=== PATIENT | female | born 1960 | race Caucasian/White ===

== ENCOUNTER 2017-02-05 17:48 | Inpatient (IN) | payer OTHER, MEDICAID ==
--- NOTE | 2017-02-05 18:00 | CPEKG ---
Heart Rate: 68 RR Interval: 882 P-R Interval: 188 QRSD Interval: 84 QT Interval: 376 QTC Interval: 400 P [place]: 54 QRS [place]: -1 T Wave [place]: 47 EKG Severity - BORDERLINE ECG - EKG Impression: SINUS RHYTHM EKG Impression: PROBABLE LEFT ATRIAL ABNORMALITY Electronically Signed By: Vero Guerra 05-Feb-2017 18:08:06
--- NOTE | 2017-02-05 18:16 | EDPHY ---
H & P Time Seen by Provider: 02/05/17 17:57 HPI/ROS: CHIEF COMPLAINT: Dyspnea on exertion HISTORY OF PRESENT ILLNESS: This patient is a diabetic 56-year-old female with antiphospholipid syndrome on Xarelto who presents to the Emergency Department complaining of dyspnea on exertion worsening over the past two weeks. She has had multiple prior clotting events even when taking anticoagulants. Today, she presents because she is unable to walk for more than a block due to shortness of breath with associated lightheadedness and heart palpitations. She denies chest pain or dyspnea at rest. She had one episode of vomiting today with mild diffuse abdominal pain. She complains of mild constipation; last BM three day ago. No blood in stool. She denies urinary complaints, fever or chills, or additional complaints. Medical history also includes depression, PTSD, and anxiety. REVIEW OF SYSTEMS: A 10 point review of systems was performed and is negative with the exception of the elements mentioned in the history of present illness. Source: Patient - Medical/Surgical History PMH: 1. Insulin-dependent diabetes 2. Left BKA 3. Antiphospholipid antibody syndrome 4. CAD 5. Farrah thyroiditis 6. Depression, anxiety, PTSD 7. Vitiligo Hx Asthma: No Hx Chronic Respiratory Disease: No Hx Diabetes: Yes Hx Cardiac Disease: No Hx Renal Disease: Yes Hx Cirrhosis: No Hx Alcoholism: No Hx HIV/AIDS: No Hx Splenectomy or Spleen Trauma: No Other PMH: Left BKA, clotting disorder, PVD, CAD, anxiety, deprtession, lymphocytic thyroiditis, type II diebetes, hypothyroidism, Farrah's, esphogeal reflux, sleep apnea, - Social History Smoking Status: Never smoked Additional Social History: Homeless - living in her car for the past month. - Physical Exam Exam: General Appearance: Alert, no acute distress. Eyes: Pupils equal and round, no conjunctival injection, no discharge. ENT, Mouth: Mucous membranes are moist, no oropharyngeal erythema or edema. Neck: No lymphadenopathy, supple. Respiratory: Lungs are clear to auscultation; no wheezes, rales, or rhonchi. Cardiovascular: Regular rate and rhythm; no murmur, rub, or gallop. Gastrointestinal: Abdomen is soft and non tender, no masses or organomegaly, bowel sounds normal. Skin: Warm and dry, no rashes, vitiligo. Back: Nontender to palpation over the thoracolumbar spine. Extremities: Left BKA with prosthetic in place. No lower extremity edema, no calf tenderness or swelling. Neurological: Alert and oriented. Moving all four extremities easily and equally. Psychiatric: Normal affect. Constitutional: Initial Vital Signs Temperature (C) 36.7 C 02/05/17 17:57 Heart Rate 75 02/05/17 17:57 Respiratory Rate 18 02/05/17 17:57 Blood Pressure 114/83 H 02/05/17 17:57 O2 Sat (%) 98 02/05/17 17:57 O2 Delivery Mode Room Air Allergies/Adverse Reactions: aspartame Allergy (Verified 02/05/17 18:07) morphine Allergy (Verified 02/05/17 18:07) Sulfa (Sulfonamide Antibiotics) Allergy (Verified 02/05/17 18:07) Home Medications: Medication Instructions Recorded Ferrous Sulfate [Slow Fe 140 MG 140 mg PO DAILY 12/30/13 (*)] Levothyroxine [Synthroid 200 mcg 200 mcg PO DAILY06 12/30/13 (*)] Lisinopril [Zestril 20 mg (*)] 20 mg PO DAILY 12/30/13 Oxycodone Ir [Oxy Ir 5 mg (RX)] 1 tab PO HS 12/30/13 Oxycodone Ir [Oxy Ir 5 mg (RX)] 1 tab PO Q4 PRN 12/30/13 Pregabalin [Lyrica 50mg (*)] 50 mg PO TID 12/30/13 Ranitidine HCl 150 mg PO BID 12/30/13 amLODIPine BESYLATE [Norvasc 5 mg 5 mg PO DAILY 12/30/13 (*)] oxyCODONE CR [Oxycontin] 20 mg PO HS 12/30/13 Polyethylene Glycol 3350 [Miralax 17 gm PO BID #60 pkt 01/11/14 17 gm (*)] Levemir 02/05/17 Xarelto 02/05/17 novoLOG 02/05/17 Medical Decision Making - Diagnostics EKG Interpretation: The 12 lead EKG was interpreted by myself: Sinus rhythm, rate 68; probably left atrial abnormality. See hard copy and/or "tracemaster" electronic copy for interpretation. Imaging Results: Imaging Impressions Chest X-Ray 02/05/17 18:19 Impression: Normal. Chest/Thorax CTA 02/05/17 19:59 Impression: 1. There is no CT evidence of pulmonary artery thrombi emboli. 2. Mild left ventricular hypertrophy with borderline-aneurysmal dilatation (4.0 cm) of the ascending thoracic aorta. There is no evidence of dissection. There is some secondary evidence of pulmonary artery hypertension (MPA: 4.0 cm). 3. Sequela of old granulomatous disease. 4. History of right renal atrophy and some cortical scarring of the left kidney (seen to better advantage on prior sonography in 2013). Findings were discussed with GIRISH DAVIS MD at 21:40, on 02/05/2017. ED Course/Re-evaluation: This 56-year-old anticoagulated diabetic female with complex medical history including antiphospholipid antibody syndrome and left BKA presents with complaint of worsening dyspnea on exertion over the past two days. She is alert and well-appearing at time of arrival. O2 sat at 98% on RA. No acute findings on exam. Will proceed with chest x-ray, labs, and EKG. Labs obtained and do not provide an underlying explanation for the patient's complaints. Her BGL is elevated at 379. Creatinine elevated at 1.2; this is baseline for her. Troponin is negative. No acute findings on x-ray or EKG. Orthostatic vital signs obtained and are positive for orthostatic hypotension: HR increases from 68 to 125 and BP drops from 120/68 to 79/64. The patient refuses a rectal exam at this time. She is not hypoxic or tachycardic. She has been compliant with her Xarelto. However, given her clotting disorder I am concerned about the possibility of a pulmonary embolism. CTA planned to assess for PE. Will plan for admission. 1955: Consultation with Dr. Yuni Chacon, hospitalist, who accepts admission. 2141: 1 L normal saline administered post CTA. Imaging results reported to me by the radiologist. No pulmonary embolism. Etiology of her orthostatic hypotension is not clear. No obvious sign of volume depletion or bleeding. She has multiple concomitant medical problems including her diabetes with an elevated blood sugar tonight. I have not found evidence of an infection. I do not suspect ACS. 0: Patient resting comfortably. Transport arranged. Differential Diagnosis: I considered a differential diagnosis that includes but is not limited to hypovolemia/dehydration, GI bleeding, pulmonary embolus, orthostatic changes secondary to medication (such as antihypertensives, opiates, or antidepressant) , vasovagal syncope, and autonomic dysfunction. - Data Points Laboratory Results: Laboratory Results 02/05/17 18:09 02/05/17 18:09 02/05/17 02/05/17 02/05/17 18:09 18:09 18:09 WBC 7.10 10^3/uL 10^3/uL (3.80-9.50) RBC 5.15 10^6/uL 10^6/uL (4.18-5.33) Hgb 10.1 g/dL L g/dL (12.6-16.3) Hct 33.3 % L % (38.0-47.0) MCV 64.7 fL L fL (81.5-99.8) MCH 19.6 pg L pg (27.9-34.1) MCHC 30.3 g/dL L g/dL (32.4-36.7) RDW 20.3 % H % (11.5-15.2) Plt Count 297 10^3/uL 10^3/uL (150-400) MPV 10.1 fL fL (8.7-11.7) Neut % (Auto) 62.4 % % (39.3-74.2) Lymph % (Auto) 29.0 % % (15.0-45.0) [place] % (Auto) 6.5 % % (4.5-13.0) Eos % (Auto) 0.7 % % (0.6-7.6) Baso % (Auto) 0.8 % % (0.3-1.7) Nucleat RBC Rel Count 0.0 % % (0.0-0.2) Absolute Neuts (auto) 4.43 10^3/uL 10^3/uL (1.70-6.50) Absolute Lymphs (auto) 2.06 10^3/uL 10^3/uL (1.00-3.00) Absolute Monos (auto) 0.46 10^3/uL 10^3/uL (0.30-0.80) Absolute Eos (auto) 0.05 10^3/uL 10^3/uL (0.03-0.40) Absolute Basos (auto) 0.06 10^3/uL 10^3/uL (0.02-0.10) Absolute Nucleated RBC 0.00 10^3/uL 10^3/uL (0-0.01) Immature Gran % 0.6 % % (0.0-1.1) Immature Gran # 0.04 10^3/uL 10^3/uL (0.00-0.10) Platelet Estimate ADEQUATE (ADEQ) Polychromasia 1+ H Hypochromasia 2+ H Microcytic Cells 3+ H Tear Drop Cells 1+ H Elliptocytes 1+ H Smear Review By Pending PT 13.8 SEC SEC (12.0-15.0) INR 1.09 (0.83-1.16) APTT 33.2 SEC SEC (23.0-38.0) Sodium 134 mEq/L mEq/L (134-144) Potassium 4.8 mEq/L mEq/L (3.5-5.2) Chloride 97 mEq/L mEq/L (97-110) Carbon Dioxide 21 mEq/l L mEq/l (22-31) Anion Gap 16 mEq/L mEq/L (8-16) BUN 16 mg/dL mg/dL (7-23) Creatinine 1.2 mg/dL H mg/dL (0.6-1.0) Estimated GFR 47 Glucose 379 mg/dL H mg/dL (70-100) Calcium 9.1 mg/dL mg/dL (8.5-10.4) Troponin I < 0.012 ng/mL ng/mL (0-0.034) Medications Given: Discontinued Medications Sodium Chloride (Ns) 1,000 mls @ 0 mls/hr IV ONCE ONE PRN Reason: Wide Open Stop: 02/05/17 19:44 Last Admin: 02/05/17 19:45 Dose: 1,000 mls Departure - Departure Disposition: [facility] Inpatient Acute Clinical Impression: Orthostatic hypotension Condition: Fair Report Scribed for: Girish Davis Report Scribed by: Kaur Gonzales Date of Report: 02/05/17 Time of Report: 18:10 Physician Review and Approval Statement: 02/05/17 18:10 Portions of this note were transcribed by the medical billing manager. I, Dr. Girish Davis, personally performed the history, physical exam, and medical decision- making; and confirmed the accuracy of the information in the transcribed note.
[2017-02-05 18:25] LABS: % IMMATURE GRANULYOCYTES 0.6 % (0.0-1.1); ABSOLUTE IMMATURE GRANULOCYTES 0.04 10^3/uL (0.00-0.10); ADD DIFF? NO; ADD MORPH? YES; ADD SCAN? NO; ATYPICAL LYMPHOCYTE FLAG 10 (0-99); FRAGMENT RBC FLAG 40 (0-99); HEMATOCRIT 33.3 % (38.0-47.0); HEMOGLOBIN 10.1 g/dL (12.6-16.3); LEFT SHIFT FLG 0 (0-99); LIPEMIA HEMOLYSIS FLAG 80 (0-99); MEAN CELL HEMOGLOBIN 19.6 pg (27.9-34.1); MEAN CELL HEMOGLOBIN CONCENTR. 30.3 g/dL (32.4-36.7); MEAN PLATELET VOLUME 10.1 fL (8.7-11.7); PLATELET CLUMPS FLAG 10 (0-99); PLATELET COUNT 297 10^3/uL (150-400); RED BLOOD CELL COUNT 5.15 10^6/uL (4.18-5.33)
[2017-02-05 18:27] LABS: MEAN CELL VOLUME 64.7 fL (81.5-99.8); RED CELL DISTRIBUTION WIDTH 20.3 % (11.5-15.2)
[2017-02-05 18:39] LABS: INR 1.09 (0.83-1.16); PROTIME(PATIENT) 13.8 SEC (12.0-15.0)
[2017-02-05 18:40] LABS: ANION GAP 16 mEq/L (8-16); APTT 33.2 SEC (23.0-38.0); CALCIUM 9.1 mg/dL (8.5-10.4); CARBON DIOXIDE 21 mEq/l (22-31); CHLORIDE 97 mEq/L (97-110); CREATININE 1.2 mg/dL (0.6-1.0); GLOMERULAR FILTRATION RATE 47; GLUCOSE 379 mg/dL (70-100); POTASSIUM 4.8 mEq/L (3.5-5.2); SODIUM 134 mEq/L (134-144)
[2017-02-05 18:55] LABS: TROPONIN I < 0.012 ng/mL (0-0.034)
[2017-02-05 19:08] LABS: ELLIPTOCYTES 1+; HYPOCHROMIA 2+; MICROCYTES 3+; PLATELET ESTIMATE ADEQUATE (ADEQ); POLYCHROMASIA 1+
[2017-02-05] MEDS ORDERED: NS 1,000 ML IV ONE (19:43)
[2017-02-05] MEDS ORDERED: IOPAMIDOL (ISOVUE 370) 100 ML BTL IV ONE (20:09)
[2017-02-05] MEDS ORDERED: ONDANSETRON 4 MG/2 ML VIAL IVP PRN (23:23)
[2017-02-05] MEDS ORDERED: ONDANSETRON DISINTEGRATING 4 MG TAB PO PRN (23:23)
[2017-02-05] MEDS ORDERED: INSULIN GLARGINE 100 UNITS/ML SYRINGE SC ONE (23:26)
[2017-02-05] MEDS ORDERED: D50W 25 GM/50 ML SYR IVP PRN (23:27)
[2017-02-05] MEDS ORDERED: RIVAROXABAN 15 MG TAB PO ONE (23:29)
[2017-02-05] MEDS: NS 1,000 ML IV SCH (23:49)
[2017-02-05] MEDS: ACETAMINOPHEN 325 MG TAB PO PRN (23:50)
[2017-02-06] MEDS: diphenhydrAMINE 25 MG CAP PO PRN ×3 (00:38→20:34)
[2017-02-06 01:26] LABS: COLOR YELLOW; LEUKOCYTE ESTERASE,URINE 2+ (NEGATIVE); NITRITE,URINE NEGATIVE (NEGATIVE)
--- NOTE | 2017-02-06 01:58 | PDGENHP ---
History and Physical - Chief Complaint dizziness, pre-syncope - History of Present Illness Patient is a 56 year old female with a history of DM 2, on insulin, antiphospholipid antibody syndrome on Xarelto, Farrah's thyroiditis and depression/anxiety/PTSD presents to the [facility] with complaining of shortness of breath and dizziness. Patient reports that symptoms occur with exertion especially when moving from a sitting or lying to standing/upright position. She reports sensation of flushing, palpitations and acute dizziness. There is no associated chest pain, cough, congestion with these episodes. The symptoms lasted seconds to about a 2-3 minutes and then improve spontaneously. Patient also denies any recent fevers, chills, cough, congestion, nausea and diarrhea, dysuria. She is currently homeless, living out of her car and has poor access to food. However she does state that she is compliant with all of her home medications. On the arrival to the [facility], patient was afebrile and hemodynamically stable. However orthostasic vital signs were markedly positive. Labs revealed a mild microcytic anemia, HGB at her previous baseline , and normal BMP and negative troponin. EKG showed normal sinus rhythm without evidence of ischemia. Chest x-ray was also negative for any acute pathology. CT angio was then obtained, was negative for acute pulmonary embolism or other lung pathology. She was given IV fluid hydration and transferred to [facility] for further evaluation and management. History Information - Allergies/Home Medication List Allergies/Adverse Reactions: aspartame Allergy (Verified 02/05/17 18:07) morphine Allergy (Verified 02/05/17 18:07) Sulfa (Sulfonamide Antibiotics) Allergy (Verified 02/05/17 18:07) Home Medications: Ferrous Sulfate [Slow Fe 140 MG (*)] 140 mg PO DAILY 12/30/13 [Last Taken 08:00] Levothyroxine [Synthroid 200 mcg (*)] 200 mcg PO DAILY06 12/30/13 [Last Taken 05:00] Lisinopril [Zestril 20 mg (*)] 20 mg PO DAILY 12/30/13 [Last Taken 12/30/13 08: 00] Oxycodone Ir [Oxy Ir 5 mg (RX)] 1 tab PO HS 12/30/13 [Last Taken 12/29/13 21:00] Oxycodone Ir [Oxy Ir 5 mg (RX)] 1 tab PO Q4 PRN 12/30/13 [Last Taken 12/30/13 00 :00] Pregabalin [Lyrica 50mg (*)] 50 mg PO TID 12/30/13 [Last Taken 12/30/13 16:00] Ranitidine HCl 150 mg PO BID 12/30/13 [Last Taken 12/29/13 16:00] amLODIPine BESYLATE [Norvasc 5 mg (*)] 5 mg PO DAILY 12/30/13 [Last Taken 08:00] oxyCODONE CR [Oxycontin] 20 mg PO HS 12/30/13 [Last Taken 12/29/13 21:00] Levemir 02/05/17 [Last Taken Unknown] Xarelto 02/05/17 [Last Taken Unknown] novoLOG 02/05/17 [Last Taken Unknown] I have personally reviewed and updated: family history, medical history, social history, surgical history - Past Medical History Additional medical history: DM2 on insulin. Antiphospholipid antibody syndrome. CVA in 2006, with residual memory deficits. PVD. Depression, anxiety and PTSD. Farrah's thyroiditis - Surgical History Additional surgical history: L BKA, aortic bypass surgery - Family History Positive for: CAD (in mother) - Social History Smoking Status: Never smoked Alcohol Use: None Drug Use: None Additional social history: Patient is currently homeless, living in her car. Has two daughters, one in [place] and one in [place], whom she is estranged from. Review of Systems ROS: 10pt was reviewed & negative except for what was stated in HPI & below Physical Exam Temp Pulse Resp BP Pulse Ox 36.9 C 65 18 170/89 H 98 02/05/17 22:44 02/05/17 22:44 02/05/17 22:44 02/05/17 22:44 02/05/17 22:44 Constitutional: no apparent distress, appears nourished, not in pain Eyes: PERRL, anicteric sclera, EOMI Ears, Nose, Mouth, Throat: moist mucous membranes, hearing normal, ears appear normal, no oral mucosal ulcers Cardiovascular: regular rate and rhythym, no murmur, rub, or gallop, pulses symmetric bilaterally, No JVD, No edema Peripheral Pulses: 2+: dorsalis-pedis (R), dorsalis-pedis (L) Respiratory: no respiratory distress, no rales or rhonchi, clear to auscultation Gastrointestinal: normoactive bowel sounds, soft, non-tender abdomen, no palpable masses, No guarding, No rebound, No distension Genitourinary: no bladder fullness, no bladder tenderness Skin: warm, normal color, no rashes or abrasions, no fluctuance, no induration, No mottled Musculoskeletal: full muscle strength, no muscle tenderness, normal joint ROM, no joint effusions, other (L BKA) Neurologic: AAOx3, sensation intact bilaterally, CN II-XII Intact, No weakness, No numbness Psychiatric: interacting appropriately, not anxious, not encephalopathic, thought process linear Lab Data & Imaging Review 02/05/17 18:09 02/05/17 18:09 WBC 7.10 10^3/uL (3.80-9.50) 02/05/17 18:09 RBC 5.15 10^6/uL (4.18-5.33) 02/05/17 18:09 Hgb 10.1 g/dL (12.6-16.3) L 02/05/17 18:09 Hct 33.3 % (38.0-47.0) L 02/05/17 18:09 MCV 64.7 fL (81.5-99.8) L 02/05/17 18:09 MCH 19.6 pg (27.9-34.1) L 02/05/17 18:09 MCHC 30.3 g/dL (32.4-36.7) L 02/05/17 18:09 RDW 20.3 % (11.5-15.2) H 02/05/17 18:09 Plt Count 297 10^3/uL (150-400) 02/05/17 18:09 MPV 10.1 fL (8.7-11.7) 02/05/17 18:09 Neut % (Auto) 62.4 % (39.3-74.2) 02/05/17 18:09 Lymph % (Auto) 29.0 % (15.0-45.0) 02/05/17 18:09 [place] % (Auto) 6.5 % (4.5-13.0) 02/05/17 18:09 Eos % (Auto) 0.7 % (0.6-7.6) 02/05/17 18:09 Baso % (Auto) 0.8 % (0.3-1.7) 02/05/17 18:09 Nucleat RBC Rel Count 0.0 % (0.0-0.2) 02/05/17 18:09 Absolute Neuts (auto) 4.43 10^3/uL (1.70-6.50) 02/05/17 18:09 Absolute Lymphs (auto) 2.06 10^3/uL (1.00-3.00) 02/05/17 18:09 Absolute Monos (auto) 0.46 10^3/uL (0.30-0.80) 02/05/17 18:09 Absolute Eos (auto) 0.05 10^3/uL (0.03-0.40) 02/05/17 18:09 Absolute Basos (auto) 0.06 10^3/uL (0.02-0.10) 02/05/17 18:09 Absolute Nucleated RBC 0.00 10^3/uL (0-0.01) 02/05/17 18:09 Immature Gran % 0.6 % (0.0-1.1) 02/05/17 18:09 Immature Gran # 0.04 10^3/uL (0.00-0.10) 02/05/17 18:09 Platelet Estimate ADEQUATE (ADEQ) 02/05/17 18:09 Polychromasia 1+ H 02/05/17 18:09 Hypochromasia 2+ H 02/05/17 18:09 Microcytic Cells 3+ H 02/05/17 18:09 Tear Drop Cells 1+ H 02/05/17 18:09 Elliptocytes 1+ H 02/05/17 18:09 PT 13.8 SEC (12.0-15.0) 02/05/17 18:09 INR 1.09 (0.83-1.16) 02/05/17 18:09 APTT 33.2 SEC (23.0-38.0) 02/05/17 18:09 Sodium 134 mEq/L (134-144) 02/05/17 18:09 Potassium 4.8 mEq/L (3.5-5.2) 02/05/17 18:09 Chloride 97 mEq/L (97-110) 02/05/17 18:09 Carbon Dioxide 21 mEq/l (22-31) L 02/05/17 18:09 Anion Gap 16 mEq/L (8-16) 02/05/17 18:09 BUN 16 mg/dL (7-23) 02/05/17 18:09 Creatinine 1.2 mg/dL (0.6-1.0) H 02/05/17 18:09 Estimated GFR 47 02/05/17 18:09 Glucose 379 mg/dL (70-100) H 02/05/17 18:09 POC Glucose 105 mg/dL (70-100) H 02/05/17 23:41 Calcium 9.1 mg/dL (8.5-10.4) 02/05/17 18:09 Troponin I < 0.012 ng/mL (0-0.034) 02/05/17 18:09 Urine Color YELLOW 02/06/17 01:13 Urine Appearance CLEAR 02/06/17 01:13 Urine pH 5.0 (5.0-7.5) 02/06/17 01:13 Ur Specific [place] 1.035 (1.002-1.030) H 02/06/17 01:13 Urine Protein NEGATIVE (NEGATIVE) 02/06/17 01:13 Urine Ketones NEGATIVE (NEGATIVE) 02/06/17 01:13 Urine Blood NEGATIVE (NEGATIVE) 02/06/17 01:13 Urine Nitrate NEGATIVE (NEGATIVE) 02/06/17 01:13 Urine Bilirubin NEGATIVE (NEGATIVE) 02/06/17 01:13 Urine Urobilinogen NEGATIVE EU (0.2-1.0) 02/06/17 01:13 Ur Leukocyte Esterase 2+ (NEGATIVE) H 02/06/17 01:13 Urine RBC 10-15 /hpf (0-3) H 02/06/17 01:13 Urine WBC 5-10 /hpf (0-3) H 02/06/17 01:13 Ur Epithelial Cells TRACE /lpf (NONE-1+) 02/06/17 01:13 Urine Glucose 3+ (NEGATIVE) H 02/06/17 01:13 Visualized and Interpreted Chest x-ray results: Yes Chest X-Ray results: no infiltrate, normal Visualized and Interpreted imaging results: Yes Interpretation: CT angio chest: no acute pulmonary emboli; ascending thoracic aortic aneurysm without dissection Visualized and Interpreted EKG results: Yes EKG Interpretation: Positive for: normal sinsus rhythm. Negative for: NS ST wave abnormalities Assessment & Plan Assessment: Patient is a 56-year-old female with a history of dm 2, antiphospholipid thought antibody, Farrah's thyroiditis who presents the [facility] with complaint of orthostatic symptoms/presyncope episodes. ED evaluation reveals largely normal labs, unremarkable chest x-ray and EKG. Her orthostatic vital signs were positive. Plan: # orthostatic hypotension Etiology of this is likely related to dehydration due to poor access to food and water given her social situation, as well as hyperglycemia induced volume loss. BMP on admission reveals glucose of greater than 300. There is no evidence of ischemia or arrhythmia on EKG, initial troponin is negative, and CT angio has ruled out pulmonary embolism. She was given 1 L of IV fluid at [facility], will continue IV fluid hydration overnight, check TTE, carotid dopplers monitor and replete electrolytes as needed. # hyperglycemia, DM2 Blood glucose elevated on a admission BMP, however UA is negative for ketones had a no evidence of acidosis. Will confirm and resume her home insulin regimen , placed on sliding scale coverage and follow fingersticks. # antiphospholipid antibody syndrome Patient currently is systemically anticoagulated with Xarelto. She reports her syndrome manifested with peripheral vascular disease resulting in BKA as well as her aortic bypass surgery. No evidence of clotting on today's presentation, as mentioned CT angio is negative for PE, lower extremity Dopplers were also negative for DVT. Will continue Xarelto while inpatient. # Farrah's thyroiditis Will check TSH and continue home Synthroid dosing. # depression/anxiety/PTSD Patient reports anxiety regarding her social situation, but states her mood is currently stable, denies SI HI. Will resume home meds once confirmed. #dispo: Admit under observation status for IV fluid hydration # gen: diabetic diet DVT ppx: on xarelto DNR as stated by patient on admission today
[2017-02-06] MEDS ORDERED: predniSONE 20 MG TAB PO ONE (02:24)
[2017-02-06] MEDS: LORazepam 0.5 MG TAB PO PRN ×2 (02:37→20:34)
[2017-02-06 05:19] LABS: % IMMATURE GRANULYOCYTES 0.5 % (0.0-1.1); ABSOLUTE IMMATURE GRANULOCYTES 0.06 10^3/uL (0.00-0.10); ADD DIFF? NO; ADD MORPH? YES; ADD SCAN? NO; ATYPICAL LYMPHOCYTE FLAG 0 (0-99); FRAGMENT RBC FLAG 40 (0-99); HEMATOCRIT 35.9 % (38.0-47.0); HEMOGLOBIN 10.6 g/dL (12.6-16.3); LEFT SHIFT FLG 0 (0-99); LIPEMIA HEMOLYSIS FLAG 70 (0-99); MEAN CELL HEMOGLOBIN 19.3 pg (27.9-34.1); MEAN CELL HEMOGLOBIN CONCENTR. 29.5 g/dL (32.4-36.7); MEAN PLATELET VOLUME 10.5 fL (8.7-11.7); PLATELET CLUMPS FLAG 20 (0-99); PLATELET COUNT 321 10^3/uL (150-400); RED BLOOD CELL COUNT 5.49 10^6/uL (4.18-5.33)
[2017-02-06 05:20] LABS: MEAN CELL VOLUME 65.4 fL (81.5-99.8); RED CELL DISTRIBUTION WIDTH 20.8 % (11.5-15.2)
[2017-02-06 05:37] LABS: ANION GAP 8 mEq/L (8-16); CALCIUM 9.1 mg/dL (8.5-10.4); CARBON DIOXIDE 21 mEq/l (22-31); CHLORIDE 107 mEq/L (97-110); GLOMERULAR FILTRATION RATE 58; GLUCOSE 58 mg/dL (70-100); MAGNESIUM 1.4 mg/dL (1.6-2.3); POTASSIUM 3.7 mEq/L (3.5-5.2); SODIUM 136 mEq/L (134-144)
[2017-02-06] MEDS ORDERED: PROTOCOL POTASSIUM 1 DOSE MISC PRN (05:45)
[2017-02-06] MEDS ORDERED: PROTOCOL MAGNESIUM 1 DOSE IV PRN (05:45)
[2017-02-06 05:47] LABS: TROPONIN I < 0.012 ng/mL (0-0.034)
[2017-02-06 06:20] LABS: PLATELET ESTIMATE ADEQUATE (ADEQ); POLYCHROMASIA 1+
[2017-02-06 07:38] LABS: MAGNESIUM 1.5 mg/dL (1.6-2.3); POTASSIUM 3.8 mEq/L (3.5-5.2)
[2017-02-06] MEDS ORDERED: POTASSIUM CL 10 MEQ TAB PO ONE (09:49)
[2017-02-06] MEDS: INSULIN LISPRO 100 UNIT/ML SC SCH ×3 (09:53→18:03)
[2017-02-06] MEDS ORDERED: MAGNESIUM SULF 1 GM/DEXTROSE 100 ML IV ONE (09:53)
[2017-02-06 10:36] LABS: HYPOCHROMIA 2+; MICROCYTES 3+
--- NOTE | 2017-02-06 13:32 | ECHO ---
[id number] + + [phone] : : [place] [id number] : : [phone] + + Adult Echocardiographic Report + --------+ :Name: ERIN CLARK Date: 02/06/2017 10:24 AM BP: 111/74 mm Hg : : Hospital Admission Number: [id number] Locat ion: 357: :: 1960 Gender: Female Height: 72 in : :Age: 56 yrs Race: Weight: 210 l b : :Reason For Study: pre-syncope with exertion : : BSA: 2.2 mete rs2 : :History: pre-syncope symptoms with exertion : + --------+ MMode/2D Measurements \T\ Calculations IVSd: 1.4 cm RVDd: 3.0 cm FS: 38.7 % Ao root diam: LVPWd: 1.2 cm LVIDd: 4.3 cm EDV(Teich): 2.9 cm LVIDs: 2.6 cm 83.1 ml LA dimension: ESV(Teich): 3.6 cm 25.5 ml EF(Teich): 69.3 % LVLd ap4: 8.7 cm SV(MOD-sp4): EDV(MOD-sp4): 85.0 ml 107.0 ml LVLs ap4: 6.4 cm ESV(MOD-sp4): 22.0 ml EF(MOD-sp4): 79.4 % Normal Measurement Values: + + :LVIDd (3.5-5.7cm) IVSd (0.6-1.1cm) LVPWd (0.6-1.1cm) Aortic Root (2.0-3.7cm)Left Atrium (1.5-4.0cm): :LV Vol(d) (76-115ml) LV Vol(s) (29-48ml) E[place]ec Fraction (50-65%)PV Nba (0.6- 1.2m/s) TV Nba (0.4-1.0m/s) : :MV E Nba (0.8-1.0m/s)MV A Nba (0.3-1.0m/s)LVOT Nba (0.7-1.2m/s) Asc Ao Nba ( 0.9-1.8m/s) : + + Doppler Measurements \T\ Calculations MV E max nba: Ao V2 max: LV V1 max: PA V2 max: 72.0 cm/sec 150.7 cm/sec 131.9 cm/sec 105.9 cm/sec MV A max nba: Ao max PG: LV V1 max PG: PA max P.8 cm/sec 9.1 mmHg 7.0 mmHg 4.5 mmHg MV E/A: 0.58 RAP systole: 5.0 mmHg Left Ventricle The left ventricle is normal in size and function. There is mild concentric left ventricular hypertrophy. Proximal septal thickening is noted. Mild systolic anterior motion of the mitral leaflet. Gradient at rest 17mmHg and with valsalva increased to 65-70mmHg. Ejection Fraction = 75%. There is Doppler evidence for diastolic dysfunction. No regional wall motion abnormalities noted. Right Ventricle The right ventricle is normal in size and function. Atria The left atrial size is normal. Right atrial size is normal. Mitral Valve The mitral valve is normal in structure and function. There is no mitral valve stenosis. There is trace to mild mitral regurgitation. Tricuspid Valve The tricuspid valve is normal in structure and function. There is no tricuspid stenosis. No tricuspid regurgitation. Aortic Valve The aortic valve is trileaflet. There is no aortic stenosis. There is no aortic insufficiency. Pulmonic Valve The pulmonic valve is not well visualized. Great Vessels The aortic root is normal size. Pericardium/Pleural There is no pericardial effusion. Conclusion A two-dimensional transthoracic echocardiogram with M-mode and Doppler was performed. The left ventricle is normal in size with hyperdynamic LV systolic function. Ejection Fraction > 75%. Mild concentric LVH. There is Doppler evidence for diastolic dysfunction. Proximal septal thickening is noted without JAYESH. Dynamic LVOT Gradient at rest 17mmHg and with valsalva increased to 65- 70mmHg. There is trace to mild mitral regurgitation. Final Reading Physician: Hamzah Tellez signed on 02/06/2017 01:31 PM Ordering Physician: Nancy Mooney Performed By: Carol Fall
[2017-02-06] MEDS: PREGABALIN 75 MG CAP PO SCH ×2 (16:53→20:34)
[2017-02-06 18:35] LABS: POTASSIUM 4.6 mEq/L (3.5-5.2)
--- NOTE | 2017-02-06 18:38 | HOSPPROG ---
Hospitalist Progress Note Assessment/Plan: #Syncope: due to dehydration. Hasn't been eating IVFs #Uncontrolled DM: restart very low-dose glargine this evening (glucose >300 today) #Mild metabolic acidosis: due to ketoacidosis/starvation. Improved with IVFs #Pruritis: due to IV contrast? No resp involvement. Benadryl PRN #Leukocytosis: denies infectious sxs. Mild pyuria. No abx now, culture pending #Diet: diabetic #Disp: warrants inpatient admission with hyperglycemia, syncope. Await TTE Subjective: itching after CT. No difficult breathing Objective: Vital Signs Temp Pulse Resp BP Pulse Ox 36.8 C 95 17 110/70 95 02/06/17 15:41 02/06/17 15:41 02/06/17 15:41 02/06/17 15:41 02/06/17 15:41 Laboratory Results 02/06/17 05:02 02/05/17 02/06/17 02/07/17 05:59 05:59 05:59 Intake Total 2150 900 Output Total 800 400 Balance 1350 500 PT 13.8 SEC (12.0-15.0) 02/05/17 18:09 INR 1.09 (0.83-1.16) 02/05/17 18:09 - Physical Exam Constitutional: no apparent distress Eyes: PERRL Ears, Nose, Mouth, Throat: dry mucous membranes Cardiovascular: regular rate and rhythym, no murmur, rub, or gallop Respiratory: no respiratory distress, no rales or rhonchi Gastrointestinal: normoactive bowel sounds, soft, non-tender abdomen Skin: rash (mild pinl macular rash over abdomen, upper thighs) ICD10 Worksheet Patient Problems: Problems Problem Status Onset Orthostatic hypotension Acute Abscess Acute Methicillin resistant Staphylococcus aureus infection Acute
[2017-02-06] MEDS: hydrOXYzine HCL 25 MG TAB PO PRN (19:05)
[2017-02-06] MEDS: INSULIN GLARGINE 100 UNITS/ML SYRINGE SC SCH (20:33)
[2017-02-07] MEDS: hydrOXYzine HCL 25 MG TAB PO PRN ×2 (05:02→20:01)
[2017-02-07] MEDS: LEVOTHYROXINE 137 MCG TAB PO SCH (05:02)
[2017-02-07] MEDS: NS 1,000 ML IV SCH ×2 (05:07→18:53)
[2017-02-07 05:57] LABS: ANION GAP 10 mEq/L (8-16); CALCIUM 8.7 mg/dL (8.5-10.4); CARBON DIOXIDE 20 mEq/l (22-31); CHLORIDE 105 mEq/L (97-110); GLOMERULAR FILTRATION RATE 58; GLUCOSE 331 mg/dL (70-100); HEMATOCRIT 31.9 % (38.0-47.0); HEMOGLOBIN 9.5 g/dL (12.6-16.3); MAGNESIUM 1.7 mg/dL (1.6-2.3); MEAN CELL HEMOGLOBIN 19.5 pg (27.9-34.1); MEAN CELL HEMOGLOBIN CONCENTR. 29.8 g/dL (32.4-36.7); POTASSIUM 4.3 mEq/L (3.5-5.2); RED BLOOD CELL COUNT 4.87 10^6/uL (4.18-5.33); SODIUM 135 mEq/L (134-144)
[2017-02-07 06:04] LABS: MEAN CELL VOLUME 65.5 fL (81.5-99.8); RED CELL DISTRIBUTION WIDTH 20.8 % (11.5-15.2)
[2017-02-07] MEDS ORDERED: INSULIN GLARGINE 100 UNITS/ML SYRINGE SC SCH (09:00)
[2017-02-07] MEDS: VENLAFAXINE XR 75 MG CAP PO SCH (09:20)
[2017-02-07] MEDS: INSULIN LISPRO 100 UNIT/ML SC SCH ×3 (09:20→18:51)
[2017-02-07] MEDS: PREGABALIN 75 MG CAP PO SCH ×3 (09:21→21:48)
[2017-02-07] MEDS: RIVAROXABAN 15 MG TAB PO SCH (09:21)
[2017-02-07] MEDS ORDERED: MAGNESIUM SULF 1 GM/DEXTROSE 100 ML IV ONE ×2 (11:42→16:30)
[2017-02-07] MEDS: METOPROLOL TARTRATE 25 MG TAB PO SCH ×2 (17:04→20:01)
[2017-02-07 19:14] LABS: POTASSIUM 4.6 mEq/L (3.5-5.2)
[2017-02-07 19:34] LABS: GLUCOSE 382 mg/dL (70-100)
[2017-02-07] MEDS: ACETAMINOPHEN 325 MG TAB PO PRN (20:01)
[2017-02-07] MEDS: DIPHENHYDRAMINE CREAM TP PRN (21:10)
[2017-02-07] MEDS ORDERED: INSULIN LISPRO 100 UNIT/ML SC ONE (21:30)
[2017-02-07] MEDS: INSULIN GLARGINE 100 UNITS/ML SYRINGE SC SCH (21:48)
[2017-02-07] MEDS: LORazepam 0.5 MG TAB PO PRN (21:48)
[2017-02-08] MEDS: LEVOTHYROXINE 137 MCG TAB PO SCH (05:15)
[2017-02-08] MEDS: NS 1,000 ML IV SCH (05:16)
[2017-02-08 05:54] LABS: MAGNESIUM 1.8 mg/dL (1.6-2.3); POTASSIUM 4.1 mEq/L (3.5-5.2)
[2017-02-08] MEDS ORDERED: MAGNESIUM SULF 1 GM/DEXTROSE 100 ML IV ONE (07:32)
[2017-02-08] MEDS: VENLAFAXINE XR 75 MG CAP PO SCH (09:32)
[2017-02-08] MEDS: PREGABALIN 75 MG CAP PO SCH ×3 (09:32→21:20)
[2017-02-08] MEDS: METOPROLOL TARTRATE 25 MG TAB PO SCH ×2 (09:32→20:32)
[2017-02-08] MEDS: INSULIN LISPRO 100 UNIT/ML SC SCH ×3 (09:33→17:53)
[2017-02-08] MEDS: RIVAROXABAN 15 MG TAB PO SCH (09:33)
[2017-02-08 10:33] LABS: GLUCOSE 188 mg/dL (70-100)
--- NOTE | 2017-02-08 14:59 | HOSPPROG ---
Hospitalist Progress Note Assessment/Plan: #Uncontrolled diabetes: very difficult social situation as is homeless. Had lows yesterday with lispro. Decrease to sensitive scale #Syncope: E/o HOCM on TTE. Likely exacerbated by severe dehydration (pt endorses not drinking much due difficulty finding restrooms). Is spoke with cardiology and recommend BB, which I resumed here #Mild metabolic acidosis: due to ketoacidosis/starvation. Improved with IVFs #Pruritis: due to IV contrast? No resp involvement. Benadryl PRN #Leukocytosis: denies infectious sxs. Mild pyuria and > 5 isolates on culture. No sxs, thus will not treat #APLS: Xarelto #Farrah's: TSH low. Decrease Synthroid #Depression: Effexor #Social situation: very difficult to treat medical issues with homelessness. She says she has 3 case workers trying find housing. She may be eligible for a bed x 1mnth; has a meeting on Thursday #Diet: diabetic #Disp: plan for DC in morning if clinically stable Time spent counseling patient: bedside, 35 min on social situation and FU treatment plans Subjective: felt shakey with hypoglycemia Objective: Vital Signs Temp Pulse Resp BP Pulse Ox 36.6 C 70 12 144/76 H 98 02/08/17 11:35 02/08/17 11:35 02/08/17 11:35 02/08/17 11:35 02/08/17 11:35 Laboratory Results 02/07/17 04:58 02/08/17 05:05 02/07/17 02/08/17 02/09/17 05:59 05:59 05:59 Intake Total 1800 3000 1000 Output Total 2400 200 Balance 1800 600 800 PT 13.8 SEC (12.0-15.0) 02/05/17 18:09 INR 1.09 (0.83-1.16) 02/05/17 18:09 - Physical Exam Constitutional: no apparent distress Eyes: PERRL Ears, Nose, Mouth, Throat: moist mucous membranes, hearing normal Cardiovascular: regular rate and rhythym, systolic murmur (LLSB) Respiratory: no respiratory distress, no rales or rhonchi Gastrointestinal: normoactive bowel sounds Genitourinary: no bladder fullness, no bladder tenderness Skin: warm Musculoskeletal: other (left BKA) Neurologic: AAOx3, CN II-XII Intact ICD10 Worksheet Patient Problems: Problems Problem Status Onset Orthostatic hypotension Acute Abscess Acute Methicillin resistant Staphylococcus aureus infection Acute
[2017-02-08] MEDS ORDERED: INSULIN GLARGINE 100 UNITS/ML SYRINGE SC SCH (15:06)
[2017-02-08 18:37] LABS: POTASSIUM 4.3 mEq/L (3.5-5.2)
[2017-02-08] MEDS: hydrOXYzine HCL 25 MG TAB PO PRN (20:32)
[2017-02-08] MEDS: LORazepam 0.5 MG TAB PO PRN (21:20)
[2017-02-08] MEDS: DIPHENHYDRAMINE CREAM TP PRN (23:20)
[2017-02-09 05:09] LABS: CALCIUM 8.6 mg/dL (8.5-10.4); CARBON DIOXIDE 24 mEq/l (22-31); CHLORIDE 105 mEq/L (97-110); CREATININE 0.9 mg/dL (0.6-1.0); GLOMERULAR FILTRATION RATE > 60; GLUCOSE 327 mg/dL (70-100); MAGNESIUM 1.7 mg/dL (1.6-2.3); SODIUM 134 mEq/L (134-144)
[2017-02-09 05:12] LABS: ANION GAP 5 mEq/L (8-16); POTASSIUM 4.2 mEq/L (3.5-5.2)
[2017-02-09] MEDS ORDERED: LEVOTHYROXINE 112 MCG TAB PO SCH (06:00)
[2017-02-09] MEDS: INSULIN LISPRO 100 UNIT/ML SC SCH ×3 (08:43→17:25)
[2017-02-09] MEDS: PREGABALIN 75 MG CAP PO SCH ×2 (08:44→17:24)
[2017-02-09] MEDS: METOPROLOL TARTRATE 25 MG TAB PO SCH (08:44)
[2017-02-09] MEDS: VENLAFAXINE XR 75 MG CAP PO SCH (08:44)
[2017-02-09] MEDS: RIVAROXABAN 15 MG TAB PO SCH (08:44)
[2017-02-09] MEDS ORDERED: INSULIN GLARGINE 100 UNITS/ML SYRINGE SC SCH (09:00)
[2017-02-09] MEDS ORDERED: MAGNESIUM SULF 1 GM/DEXTROSE 100 ML IV ONE (11:46)
[2017-02-09 15:56] VITALS: BP 129/72; PULSE 72; RESP 16; TEMP 97.9; O2SAT 94
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
== END 2017-02-09 18:37 | disposition home or self-care (01) | DRG 638 ==
LOC: CED 17:48 → CEDHOLD 20:00 → F3N 22:36 → OBSVTOIN 02-06 18:34
PROVIDERS: ADMIT Internal Medicine; ATTEND Internal Medicine
DX: E11.65 Type 2 diabetes mellitus with hyperglycemia (principal); I42.1 Obstructive hypertrophic cardiomyopathy; E87.2 Acidosis; D68.61 Antiphospholipid syndrome; E86.0 Dehydration; I95.1 Orthostatic hypotension; L29.9 Pruritus, unspecified; E06.3 Autoimmune thyroiditis; F32.9 Major depressive disorder, single episode, unspecified; I10 Essential (primary) hypertension; F43.10 Post-traumatic stress disorder, unspecified; Z79.4 Long term (current) use of insulin; Z89.512 Acquired absence of left leg below knee; Z59.0 Homelessness
CPT/HCPCS: 71020-PO; 71275-PO; 80048-PO; 82947-QW; 84484-PO; 85025-PO; 85610-PO; 85730-PO; G0378; J1815; J3475; Q9967

== ENCOUNTER → 2017-02-25 | Outpatient (CLI) | payer OTHER, MEDICAID | LOC: CIMAGING 13:00 | PROVIDERS: ATTEND Nurse Practitioner | DX: N63 Unspecified lump in breast (principal) | CPT/HCPCS: 76641; G0204 ==

== ENCOUNTER 2017-03-14 22:44 | Inpatient (IN) | payer OTHER, MEDICAID ==
--- NOTE | 2017-03-14 22:47 | EDPHY ---
H & P HPI/ROS: HPI CHIEF COMPLAINT: Chest pain HISTORY OF PRESENT ILLNESS: This patient 56-year-old female, significant past medical history for multiple chronic medical problems including diabetes, HOCM, vitiligo, antiphospholipid syndrome with DVTs, on Xarelto, PTSD, anxiety, depression, presents to the emergency room by private vehicle around 10 50 at night with left-sided chest discomfort. She describes this pain as a "twinge" pain is somewhat dull at times, substernal, left chest, radiates to her neck and left shoulder at times down her left arm. She states it has been persistent since yesterday intermittently. Denies pleuritic pain, hemoptysis, significant shortness of breath. Past Medical History: Multiple medical problems including diabetes, HOCM, DVTs , antiphospholipid syndrome, depression, PTSD, anxiety, thoracic aortic aneurysm Past Surgical History: Left [id number] amputation, aortic surgery, fem-pop bypass, tubal ligation Social History: Homelessness Family History: Cardiac disease in her mom with stents ROS REVIEW OF SYSTEMS: A comprehensive 10 point review of systems is otherwise negative aside from elements mentioned in the history of present illness. Exam Constitutional appears well nontoxic triage nursing summary reviewed, vital signs reviewed, awake/alert. Eyes normal conjunctivae and sclera, EOMI, PERRLA. HENT normal inspection, atraumatic, moist mucus membranes, no epistaxis, neck supple/ no meningismus, no raccoon eyes. Respiratory clear to auscultation bilaterally, normal breath sounds, no respiratory distress, no wheezing. Cardiovascular rate normal, regular rhythm, no murmur, no edema, distal pulses normal. Gastrointestinal soft, non-tender, no rebound, no guarding, normal bowel sounds, no distension, no pulsatile mass. Genitourinary no CVA tenderness. Musculoskeletal left lower extremity [id number] amputation, no midline vertebral tenderness, full range of motion, no calf swelling, no tenderness of extremities, no meningismus, good pulses, neurovascularly intact. Skin pink, warm, & dry, no rash, skin atraumatic. Neurologic awake, alert and oriented x 3, AAOx3, moves all 4 extremities equally, motor intact, sensory intact, CN II-XII intact, normal cerebellar, normal vision, normal speech. Psychiatric normal mood/affect. Heme/Lymph/Immune no lymphadenopathy. Differential diagnosis includes but is not limited to: ACS, atypical chest pain , pneumothorax, pneumonia, pulmonary embolism, aortic dissection, congestive heart failure, tumor, musculoskeletal pain, esophageal pain, GERD, peptic ulcer disease, pancreatitis Medical Decision Making: Plan for this patient EKG, full consultant in ergonomics and safety, full- dose aspirin, nitroglycerin to see if this improves her chest discomfort, chest x-ray, blood work including D-dimer Re-evaluation: EKG interpretation by me on record in [email or web address] system. Impression time of EKG 2250, this is sinus rhythm rate of 81, there is no acute ischemic change appreciated no ST elevation, ST depression or significant T-wave abnormalities. Will compare this EKG to her previous EKG dated 02/05/2017 unchanged morphology. No acute ischemic changes appreciated. ED x-ray chest one view: Negative for acute cardiopulmonary disease at this time. 2327: This patient is chest pain-free at this time. 2339: This patient has a positive D-dimer, in the setting of antiphospholipid syndrome and chest pain patient should have a CT of her chest to make sure she does not have a pulmonary embolism. 2341: This patient given her description of her chest discomfort left jaw pain , left shoulder pain, left arm pain, left-sided chest discomfort, the plan will be for admission for rule out chest pain rule out. Patient agreeable on admission to [facility]. She is agreeable on transfer by ambulance there. Here in the emergency room she has had full-dose aspirin. Her EKG is nonischemic. Troponin is negative. She does have a positive D-dimer which will require CT angiogram of her chest. She is pending a CT angiogram of her chest at this time. She does have risk factors for DVTs, PE and clotting disorder. She is diabetic. Given her age, diabetes, clotting disorder, I do recommend that she gets admitted for chest pain evaluation and further rule out, family history as well. 1212AM: Spoke with Dr. reynoso who accepts this patient for chest pain evaluation. Again risk factors for coronary artery disease, age, insulin-dependent diabetes , underlying clotting disorder, family history. She still pending CT angiogram due to the positive D-dimer. This will be done soon. I will set up transfer her to be admitted to the hospital service for chest pain observation cardiac evaluation and rule out. Patient agrees: For hospital admission and transfer to [facility] for chest pain evaluation. She currently is chest pain-free at this time. 12:13 a.m.. Source: Patient - Medical/Surgical History Hx Asthma: No Hx Chronic Respiratory Disease: No Hx Diabetes: Yes Hx Cardiac Disease: No Hx Renal Disease: Yes Hx Cirrhosis: No Hx Alcoholism: No Hx HIV/AIDS: No Hx Splenectomy or Spleen Trauma: No Other PMH: Left BKA, clotting disorder, PVD, CAD, anxiety, deprtession, lymphocytic thyroiditis, type II diebetes, hypothyroidism, Farrah's, esphogeal reflux, sleep apnea, - Social History Smoking Status: Never smoked Constitutional: Initial Vital Signs Heart Rate 68 03/14/17 22:49 Respiratory Rate 17 03/14/17 22:49 Blood Pressure 122/79 H 03/14/17 22:49 O2 Sat (%) 98 03/14/17 22:49 O2 Delivery Mode Room Air O2 (L/minute) 2 Allergies/Adverse Reactions: aspartame Allergy (Verified 03/14/17 22:52) morphine Allergy (Verified 03/14/17 22:52) Sulfa (Sulfonamide Antibiotics) Allergy (Verified 03/14/17 22:52) Home Medications: Medication Instructions Recorded Insulin Aspart [novoLOG] 0 unit SC TIDMEAL 02/05/17 Insulin Detemir [Levemir] 30 unit SQ DAILY 02/05/17 Rivaroxaban [Xarelto 15mg (*)] 15 mg PO DAILY 02/05/17 Insulin Detemir [Levemir] 15 unit SQ HS 02/06/17 Lisdexamfetamine Dimesylate 40 mg PO DAILY 02/06/17 [Vyvanse] Lisinopril [Zestril 40 mg (*)] 40 mg PO DAILY 02/06/17 Metoprolol Tartrate [Lopressor 25 25 mg PO BID 02/06/17 mg (*)] Pregabalin [Lyrica 75mg (*)] 75 mg PO TID 02/06/17 Venlafaxine Xr [Effexor Xr 75MG 75 mg PO DAILY 02/06/17 (*)] Levothyroxine [Synthroid 112 mcg 112 mcg PO DAILY AT 6AM #30 tab 02/09/17 (*)] Medical Decision Making - Diagnostics Imaging Results: Imaging Impressions Chest X-Ray 03/14/17 22:49 Impression: Clear lungs. Negative portable chest. - Data Points Laboratory Results: Laboratory Results 03/14/17 22:58 03/14/17 22:58 03/14/17 03/14/17 03/14/17 22:58 22:58 22:58 WBC 6.80 10^3/uL 10^3/uL (3.80-9.50) RBC 5.20 10^6/uL 10^6/uL (4.18-5.33) Hgb 10.5 g/dL L g/dL (12.6-16.3) Hct 33.7 % L % (38.0-47.0) MCV 64.8 fL L fL (81.5-99.8) MCH 20.2 pg L pg (27.9-34.1) MCHC 31.2 g/dL L g/dL (32.4-36.7) RDW 21.1 % H % (11.5-15.2) Plt Count 339 10^3/uL 10^3/uL (150-400) MPV 10.2 fL fL (8.7-11.7) Neut % (Auto) 53.0 % % (39.3-74.2) Lymph % (Auto) 36.5 % % (15.0-45.0) [place] % (Auto) 6.2 % % (4.5-13.0) Eos % (Auto) 3.2 % % (0.6-7.6) Baso % (Auto) 0.7 % % (0.3-1.7) Nucleat RBC Rel Count 0.0 % % (0.0-0.2) Absolute Neuts (auto) 3.60 10^3/uL 10^3/uL (1.70-6.50) Absolute Lymphs (auto) 2.48 10^3/uL 10^3/uL (1.00-3.00) Absolute Monos (auto) 0.42 10^3/uL 10^3/uL (0.30-0.80) Absolute Eos (auto) 0.22 10^3/uL 10^3/uL (0.03-0.40) Absolute Basos (auto) 0.05 10^3/uL 10^3/uL (0.02-0.10) Absolute Nucleated RBC 0.00 10^3/uL 10^3/uL (0-0.01) Immature Gran % 0.4 % % (0.0-1.1) Immature Gran # 0.03 10^3/uL 10^3/uL (0.00-0.10) Platelet Estimate ADEQUATE (ADEQ) Large Platelets PRESENT H Hypochromasia 1+ H Microcytic Cells 1+ H Elliptocytes 1+ H Smear Review By Pending PT 14.5 SEC SEC (12.0-15.0) INR 1.16 (0.83-1.16) APTT 36.2 SEC SEC (23.0-38.0) D-Dimer 1.35 ug/mLFEU H ug/mLFEU (0.00-0.50) Sodium 135 mEq/L mEq/L (134-144) Potassium 4.4 mEq/L mEq/L (3.5-5.2) Chloride 100 mEq/L mEq/L (97-110) Carbon Dioxide 20 mEq/l L mEq/l (22-31) Anion Gap 15 mEq/L mEq/L (8-16) BUN 14 mg/dL mg/dL (7-23) Creatinine 1.4 mg/dL H mg/dL (0.6-1.0) Estimated GFR 39 Glucose 191 mg/dL H mg/dL (70-100) Calcium 9.0 mg/dL mg/dL (8.5-10.4) Magnesium 1.7 mg/dL mg/dL (1.6-2.3) Total Bilirubin 0.4 mg/dL mg/dL (0.1-1.4) Conjugated Bilirubin 0.3 mg/dL mg/dL (0.0-0.5) Unconjugated Bilirubin 0.1 mg/dL mg/dL (0.0-1.1) AST 23 IU/L IU/L (14-46) ALT 27 IU/L IU/L (9-52) Alkaline Phosphatase 133 IU/L H IU/L (38-126) Creatine Kinase 49 IU/L IU/L (0-156) CK-MB (CK-2) Fraction 0.73 ng/mL ng/mL (0-4.55) Troponin I < 0.012 ng/mL ng/mL (0-0.034) NT-Pro-B Natriuret Pep 97 pg/mL pg/mL (0-125) Total Protein 6.6 g/dL g/dL (6.3-8.2) Albumin 3.7 g/dL g/dL (3.5-5.0) Lipase 129.0 IU/L IU/L (23-300) Medications Given: Discontinued Medications Aspirin (Aspirin) 324 mg PO EDNOW ONE Stop: 03/14/17 22:50 Last Admin: 03/14/17 23:05 Dose: 324 mg Sodium Chloride (Ns) 1,000 mls @ 0 mls/hr IV ONCE ONE; Wide Open PRN Reason: Protocol Stop: 03/14/17 22:50 Last Admin: 03/14/17 23:07 Dose: 1,000 mls Nitroglycerin (Nitrostat) 0.4 mg SL Q5M PRN PRN Reason: Chest Pain Stop: 03/14/17 23:00 Last Admin: 03/14/17 23:05 Dose: 0.4 mg Departure - Departure Disposition: [facility] Inpatient Acute Clinical Impression: Chest pain Qualifiers: Chest pain type: unspecified Qualified Code(s): R07.9 - Chest pain, unspecified Condition: Fair Referrals: NONE *PRIMARY CARE P,. [Primary Care Provider] - As per Instructions
[2017-03-14] MEDS ORDERED: NS 1,000 ML IV ONE (22:49)
[2017-03-14] MEDS ORDERED: ASPIRIN 81 MG CHEWABLE TAB PO ONE (22:49)
[2017-03-14] MEDS ORDERED: NITROGLYCERIN 0.4 MG BTL SL PRN (22:49)
--- NOTE | 2017-03-14 22:52 | CPEKG ---
Heart Rate: 81 RR Interval: 741 P-R Interval: 184 QRSD Interval: 82 QT Interval: 372 QTC Interval: 432 P [place]: 58 QRS [place]: -9 T Wave [place]: 36 EKG Severity - BORDERLINE ECG - EKG Impression: SINUS RHYTHM EKG Impression: PROBABLE LEFT ATRIAL ABNORMALITY Electronically Signed By: Pro Ramires 16-Mar-2017 08:11:52
[2017-03-14] MEDS ORDERED: NITROGLYCERIN 0.4 MG BTL SL ONE (23:03)
[2017-03-14 23:23] LABS: % IMMATURE GRANULYOCYTES 0.4 % (0.0-1.1); ABSOLUTE IMMATURE GRANULOCYTES 0.03 10^3/uL (0.00-0.10); ADD DIFF? NO; ADD MORPH? YES; ADD SCAN? NO; ATYPICAL LYMPHOCYTE FLAG 50 (0-99); FRAGMENT RBC FLAG 40 (0-99); HEMATOCRIT 33.7 % (38.0-47.0); HEMOGLOBIN 10.5 g/dL (12.6-16.3); LEFT SHIFT FLG 0 (0-99); LIPEMIA HEMOLYSIS FLAG 80 (0-99); MEAN CELL HEMOGLOBIN 20.2 pg (27.9-34.1); MEAN CELL HEMOGLOBIN CONCENTR. 31.2 g/dL (32.4-36.7); MEAN CELL VOLUME 64.8 fL (81.5-99.8); MEAN PLATELET VOLUME 10.2 fL (8.7-11.7); PLATELET CLUMPS FLAG 10 (0-99); PLATELET COUNT 339 10^3/uL (150-400); RED CELL DISTRIBUTION WIDTH 21.1 % (11.5-15.2)
[2017-03-14 23:24] LABS: INR 1.16 (0.83-1.16); PROTIME(PATIENT) 14.5 SEC (12.0-15.0)
[2017-03-14 23:25] LABS: APTT 36.2 SEC (23.0-38.0)
[2017-03-14 23:26] LABS: ALANINE AMINOTRANSFERASE 27 IU/L (9-52); ALBUMIN 3.7 g/dL (3.5-5.0); ALKALINE PHOSPHATASE 133 IU/L (38-126); ANION GAP 15 mEq/L (8-16); ASPARTATE AMINOTRANSFERASE 23 IU/L (14-46); BILIRUBIN,TOTAL 0.4 mg/dL (0.1-1.4); BILIRUBIN-CONJUGATED 0.3 mg/dL (0.0-0.5); BILIRUBIN-UNCONJUGATED 0.1 mg/dL (0.0-1.1); CARBON DIOXIDE 20 mEq/l (22-31); CHLORIDE 100 mEq/L (97-110); CREATININE 1.4 mg/dL (0.6-1.0); GLOMERULAR FILTRATION RATE 39; GLUCOSE 191 mg/dL (70-100); MAGNESIUM 1.7 mg/dL (1.6-2.3); POTASSIUM 4.4 mEq/L (3.5-5.2); SODIUM 135 mEq/L (134-144); TOTAL PROTEIN 6.6 g/dL (6.3-8.2)
[2017-03-14 23:36] LABS: CREATINE KINASE-MB FRACTION 0.73 ng/mL (0-4.55); TROPONIN I < 0.012 ng/mL (0-0.034)
[2017-03-14 23:46] LABS: ELLIPTOCYTES 1+; HYPOCHROMIA 1+
[2017-03-14 23:47] LABS: MICROCYTES 1+
[2017-03-14 23:48] LABS: LARGE PLATELETS PRESENT; PLATELET ESTIMATE ADEQUATE (ADEQ)
[2017-03-15] MEDS ORDERED: IOPAMIDOL (ISOVUE 370) 100 ML BTL IV ONE ×2 (00:08→01:01)
[2017-03-15] MEDS ORDERED: ONDANSETRON 4 MG/2 ML VIAL IVP PRN (01:18)
[2017-03-15] MEDS ORDERED: ACETAMINOPHEN 325 MG TAB PO PRN (01:18)
[2017-03-15] MEDS ORDERED: ONDANSETRON DISINTEGRATING 4 MG TAB PO PRN (01:18)
[2017-03-15] MEDS ORDERED: NS 1,000 ML IV SCH ×2 (01:30→09:30)
--- NOTE | 2017-03-15 02:45 | PDGENHP ---
History and Physical - Chief Complaint Acute chest pain - History of Present Illness primary care provider: Jessenia Sage HPI: 56-year-old female presents with acute chest pain characterized as twinge sensation located in the substernal area and left chest radiating into her jaw and left arm with associated aching sensation, onset of symptoms 2 days prior. Duration has been short, approximately 1-2 minutes, and self-limited. The episodes seem to occur at any time, at rest or with exertion, but she does note that the pain seems to be somewhat exacerbated with exertion. She has otherwise been drinking fluids normally but does report poor oral intake of solids recently secondary to her homelessness. She reports her urine output has been regular and she has not experienced any shortness of breath. Her baseline level of physical exertion is minimal, with the maximum being getting herself in and out of her [employer]. She denies ever having similar chest pain and she denies any recent medication changes. She only takes tylenol for pain relief. She has been adherent to her beta-wilbert and ACEi, as well as Xarelto. History Information - Allergies/Home Medication List Allergies/Adverse Reactions: aspartame Allergy (Verified 03/14/17 22:52) morphine Allergy (Verified 03/14/17 22:52) Sulfa (Sulfonamide Antibiotics) Allergy (Verified 03/14/17 22:52) Home Medications: Insulin Aspart [novoLOG] 0 unit SC TIDMEAL 02/05/17 [Last Taken 02/04/17] Insulin Detemir [Levemir] 30 unit SQ DAILY 02/05/17 [Last Taken 02/05/17] Rivaroxaban [Xarelto 15mg (*)] 15 mg PO DAILY 02/05/17 [Last Taken 02/05/17] Insulin Detemir [Levemir] 15 unit SQ HS 02/06/17 [Last Taken 02/05/17] Lisdexamfetamine Dimesylate [Vyvanse] 40 mg PO DAILY 02/06/17 [Last Taken ] Lisinopril [Zestril 40 mg (*)] 40 mg PO DAILY 02/06/17 [Last Taken 02/05/17] Metoprolol Tartrate [Lopressor 25 mg (*)] 25 mg PO BID 02/06/17 [Last Taken 09:00] Pregabalin [Lyrica 75mg (*)] 75 mg PO TID 02/06/17 [Last Taken 02/05/17 09:00] Venlafaxine Xr [Effexor Xr 75MG (*)] 75 mg PO DAILY 02/06/17 [Last Taken ] I have personally reviewed and updated: family history, medical history, social history, surgical history - Past Medical History Additional medical history: DM2 on insulin. Antiphospholipid antibody syndrome. CVA in 2006, with residual memory deficits. PVD. Depression, anxiety and PTSD. Farrah's thyroiditis - Surgical History Additional surgical history: L BKA, aortic bypass surgery - Family History Positive for: CAD (in mother With stents placed at age 68) - Social History Smoking Status: Never smoked Alcohol Use: None Drug Use: None Additional social history: Patient is currently homeless, living in her car. Has two daughters, one in [place] and one in [place], whom she is estranged from. Review of Systems ROS: 10pt was reviewed & negative except for what was stated in HPI & below Cardiac: Reports: chest pain Physical Exam Temp Pulse Resp BP Pulse Ox 36.7 C 61 16 140/77 H 99 03/15/17 02:37 03/15/17 02:37 03/15/17 02:37 03/15/17 02:37 03/15/17 02:37 Constitutional: no apparent distress, appears nourished, not in pain Eyes: PERRL, anicteric sclera, EOMI Ears, Nose, Mouth, Throat: moist mucous membranes, hearing normal, ears appear normal, no oral mucosal ulcers Cardiovascular: regular rate and rhythym, no murmur, rub, or gallop, edema ( trace right lower extremity), other ( abdominal bruit present) Respiratory: no respiratory distress, no rales or rhonchi, clear to auscultation Gastrointestinal: normoactive bowel sounds, soft, non-tender abdomen, no palpable masses Genitourinary: no bladder fullness, no bladder tenderness Musculoskeletal: other ( left lower extremity BKA) Neurologic: AAOx3, No facial droop Psychiatric: interacting appropriately, not anxious, not encephalopathic, thought process linear Lab Data & Imaging Review 03/14/17 22:58 03/14/17 22:58 WBC 6.80 10^3/uL (3.80-9.50) 03/14/17 22:58 RBC 5.20 10^6/uL (4.18-5.33) 03/14/17 22:58 Hgb 10.5 g/dL (12.6-16.3) L 03/14/17 22:58 Hct 33.7 % (38.0-47.0) L 03/14/17 22:58 MCV 64.8 fL (81.5-99.8) L 03/14/17 22:58 MCH 20.2 pg (27.9-34.1) L 03/14/17 22:58 MCHC 31.2 g/dL (32.4-36.7) L 03/14/17 22:58 RDW 21.1 % (11.5-15.2) H 03/14/17 22:58 Plt Count 339 10^3/uL (150-400) 03/14/17 22:58 MPV 10.2 fL (8.7-11.7) 03/14/17 22:58 Neut % (Auto) 53.0 % (39.3-74.2) 03/14/17 22:58 Lymph % (Auto) 36.5 % (15.0-45.0) 03/14/17 22:58 [place] % (Auto) 6.2 % (4.5-13.0) 03/14/17 22:58 Eos % (Auto) 3.2 % (0.6-7.6) 03/14/17 22:58 Baso % (Auto) 0.7 % (0.3-1.7) 03/14/17 22:58 Nucleat RBC Rel Count 0.0 % (0.0-0.2) 03/14/17 22:58 Absolute Neuts (auto) 3.60 10^3/uL (1.70-6.50) 03/14/17 22:58 Absolute Lymphs (auto) 2.48 10^3/uL (1.00-3.00) 03/14/17 22:58 Absolute Monos (auto) 0.42 10^3/uL (0.30-0.80) 03/14/17 22:58 Absolute Eos (auto) 0.22 10^3/uL (0.03-0.40) 03/14/17 22:58 Absolute Basos (auto) 0.05 10^3/uL (0.02-0.10) 03/14/17 22:58 Absolute Nucleated RBC 0.00 10^3/uL (0-0.01) 03/14/17 22:58 Immature Gran % 0.4 % (0.0-1.1) 03/14/17 22:58 Immature Gran # 0.03 10^3/uL (0.00-0.10) 03/14/17 22:58 Platelet Estimate ADEQUATE (ADEQ) 03/14/17 22:58 Large Platelets PRESENT H 03/14/17 22:58 Hypochromasia 1+ H 03/14/17 22:58 Microcytic Cells 1+ H 03/14/17 22:58 Elliptocytes 1+ H 03/14/17 22:58 PT 14.5 SEC (12.0-15.0) 03/14/17 22:58 INR 1.16 (0.83-1.16) 03/14/17 22:58 APTT 36.2 SEC (23.0-38.0) 03/14/17 22:58 D-Dimer 1.35 ug/mLFEU (0.00-0.50) H 03/14/17 22:58 Sodium 135 mEq/L (134-144) 03/14/17 22:58 Potassium 4.4 mEq/L (3.5-5.2) 03/14/17 22:58 Chloride 100 mEq/L (97-110) 03/14/17 22:58 Carbon Dioxide 20 mEq/l (22-31) L 03/14/17 22:58 Anion Gap 15 mEq/L (8-16) 03/14/17 22:58 BUN 14 mg/dL (7-23) 03/14/17 22:58 Creatinine 1.4 mg/dL (0.6-1.0) H 03/14/17 22:58 Estimated GFR 39 03/14/17 22:58 Glucose 191 mg/dL (70-100) H 03/14/17 22:58 Calcium 9.0 mg/dL (8.5-10.4) 03/14/17 22:58 Magnesium 1.7 mg/dL (1.6-2.3) 03/14/17 22:58 Total Bilirubin 0.4 mg/dL (0.1-1.4) 03/14/17 22:58 Conjugated Bilirubin 0.3 mg/dL (0.0-0.5) 03/14/17 22:58 Unconjugated Bilirubin 0.1 mg/dL (0.0-1.1) 03/14/17 22:58 AST 23 IU/L (14-46) 03/14/17 22:58 ALT 27 IU/L (9-52) 03/14/17 22:58 Alkaline Phosphatase 133 IU/L (38-126) H 03/14/17 22:58 Creatine Kinase 49 IU/L (0-156) 03/14/17 22:58 CK-MB (CK-2) Fraction 0.73 ng/mL (0-4.55) 03/14/17 22:58 Troponin I < 0.012 ng/mL (0-0.034) 03/14/17 22:58 NT-Pro-B Natriuret Pep 97 pg/mL (0-125) 03/14/17 22:58 Total Protein 6.6 g/dL (6.3-8.2) 03/14/17 22:58 Albumin 3.7 g/dL (3.5-5.0) 03/14/17 22:58 Lipase 129.0 IU/L (23-300) 03/14/17 22:58 Visualized and Interpreted Chest x-ray results: Yes Chest X-Ray results: no infiltrate Visualized and Interpreted EKG results: Yes EKG Interpretation: Positive for: other ( normal sinus rhythm, Q-wave in lead 3) Assessment & Plan Assessment: 56-year-old female presents with acute chest pain in the setting of acute kidney injury Plan: 1. Chest pain. Acute, new problem this provider, further workup indicated. Potential etiologies include unstable angina versus atypical. Given her history diabetes and peripheral vascular disease, unstable angina is a viable possibility and she should receive urgent cardiac risk stratification. -patient has never had a stress test, get Lexiscan given her inability to exercise -reviewed outside records including 02/09/[address] Kathie Jiménez, she does report that the patient has underlying hypertrophic obstructive cardiomyopathy resulting in presyncope in the setting of dehydration , currently on beta-wilbert, unclear whether this is contributing to presenting symptoms -repeat cardiac enzyme -continue monitor on telemetry overnight -patient is currently chest pain-free, if recurs, administer sublingual nitroglycerin and reassess -check hemoglobin A1c and lipid panel in a.m. 2. Acute kidney injury. Unclear etiology, potentially secondary to poor oral intake and resultant hypovolemia -get urinalysis and fractional excretion of sodium -hold CRISTI-inhibitor -continue IV normal saline overnight and repeat serum creatinine level in a.m. 3. Antiphospholipid syndrome. Chronic, currently on Xarelto -given positive D-dimer, Dr. Carpio has informed me that he is pursuing CT angiogram to rule out pulmonary embolism refractory to 10 a inhibitor -continue IV normal saline now that she has received IV contrast dye 4. Diabetes mellitus. Continue home medications once reconciled Diet. NPO Prophylaxis. High risk patient, currently on Xarelto Code. Do not resuscitate per patient Despite. Anticipated discharge is 03/15/2017, pending further workup as outlined above.
[2017-03-15 04:39] LABS: ADD DIFF? NO; ADD MORPH? YES; ADD SCAN? NO; ATYPICAL LYMPHOCYTE FLAG 70 (0-99); FRAGMENT RBC FLAG 40 (0-99); HEMATOCRIT 32.3 % (38.0-47.0); HEMOGLOBIN 9.6 g/dL (12.6-16.3); LEFT SHIFT FLG 0 (0-99); LIPEMIA HEMOLYSIS FLAG 70 (0-99); MEAN CELL HEMOGLOBIN 19.9 pg (27.9-34.1); MEAN CELL HEMOGLOBIN CONCENTR. 29.7 g/dL (32.4-36.7); MEAN PLATELET VOLUME 10.2 fL (8.7-11.7); PLATELET CLUMPS FLAG 0 (0-99); PLATELET COUNT 251 10^3/uL (150-400); RED BLOOD CELL COUNT 4.83 10^6/uL (4.18-5.33)
[2017-03-15 04:42] LABS: MEAN CELL VOLUME 66.9 fL (81.5-99.8); RED CELL DISTRIBUTION WIDTH 21.2 % (11.5-15.2)
[2017-03-15] MEDS: NITROGLYCERIN 0.4 MG BTL SL PRN ×2 (04:45→04:50)
[2017-03-15 04:52] LABS: ALANINE AMINOTRANSFERASE 29 IU/L (9-52); ALBUMIN 3.3 g/dL (3.5-5.0); ALKALINE PHOSPHATASE 99 IU/L (38-126); ASPARTATE AMINOTRANSFERASE 20 IU/L (14-46); BILIRUBIN,TOTAL 0.5 mg/dL (0.1-1.4); CALCIUM 9.2 mg/dL (8.5-10.4); CARBON DIOXIDE 21 mEq/l (22-31); CHLORIDE 108 mEq/L (97-110); CREATININE 1.3 mg/dL (0.6-1.0); GLOMERULAR FILTRATION RATE 43; GLUCOSE 52 mg/dL (70-100); MAGNESIUM 1.7 mg/dL (1.6-2.3); SODIUM 141 mEq/L (134-144)
[2017-03-15 04:53] LABS: ANION GAP 12 mEq/L (8-16); POTASSIUM 3.9 mEq/L (3.5-5.2)
[2017-03-15 05:01] LABS: TROPONIN I < 0.012 ng/mL (0-0.034)
[2017-03-15 05:09] LABS: ELLIPTOCYTES 1+; HYPOCHROMIA 1+; MICROCYTES 2+; PLATELET ESTIMATE ADEQUATE (ADEQ)
[2017-03-15] MEDS ORDERED: D5W 1/2 NS 1,000 ML IV SCH (06:00)
[2017-03-15] MEDS ORDERED: D50W 25 GM/50 ML SYR IVP PRN (06:34)
[2017-03-15] MEDS ORDERED: RIVAROXABAN 20 MG TAB PO SCH (09:00)
[2017-03-15 09:34] LABS: COLOR PALE YELLOW; LEUKOCYTE ESTERASE,URINE 1+ (NEGATIVE); NITRITE,URINE NEGATIVE (NEGATIVE)
[2017-03-15] MEDS ORDERED: REGADENOSON 0.4 MG/5 ML SYR IVP ONE (10:47)
--- NOTE | 2017-03-15 12:27 | CPEKG ---
Heart Rate: 115 RR Interval: 522 P-R Interval: 172 QRSD Interval: 80 QT Interval: 336 QTC Interval: 465 P [place]: 76 QRS [place]: -40 T Wave [place]: 69 EKG Severity - ABNORMAL ECG - EKG Impression: SINUS TACHYCARDIA EKG Impression: LEFT AXIS DEVIATION EKG Impression: PROBABLE LEFT VENTRICULAR HYPERTROPHY EKG Impression: CONSIDER ANTERIOR INFARCT Electronically Signed By: Pro Ramires 16-Mar-2017 08:08:09
--- NOTE | 2017-03-15 13:07 | CPR ---
[f rep st] NONINVASIVE CARDIAC PROCEDURE REPORT DATE OF PROCEDURE: 03/15/2017 INDICATIONS: This patient is 56 years old. She is currently admitted with atypical chest discomfor t. PROCEDURE: Lexiscan infusion. TECHNIQUE: Lexiscan infusion was performed in conjunction with injection of a radioisotope by for t he purposes of performing myocardial perfusion imaging. In the fasting state, the patient was admin istered Lexiscan per protocol. The baseline ECG demonstrated sinus tachycardia at 101 beats per minute. She began the study mildly hypotensive with blood pressure of 90/60. During the study, blood pressure raoul was 62/48 and res ponded to the administration of IV fluids. She experienced symptoms of nausea only. IMPRESSION: 1. Lexiscan injection performed with transient hypotension. 2. No indication of dynamic electrocardiographic changes. 3. Myocardial perfusion imaging will be dictated separately by Radiology. /[id number]/MODL
[2017-03-15] MEDS ORDERED: NS 500 ML IV ONE (16:33)
[2017-03-15] MEDS ORDERED: NS W/ 20 KCl/L 1,000 ML IV SCH (16:45)
--- NOTE | 2017-03-15 17:26 | GCON ---
[f rep st] CONSULTATION CARDIOLOGY CONSULTATION. DATE OF CONSULTATION: 03/15/2017 REFERRING PHYSICIAN: Madina Avendaño MD INDICATIONS: Palpitations, chest pain, and hypotension. HISTORY OF PRESENT ILLNESS: The patient is an unfortunate 56-year-old female with a complex and chastity gthy medical history. Despite her lengthy medical history, she really has not had any primary cardi ac problems. She does, however, have a history significant for longstanding type 2 diabetes mellitu s, currently on insulin, and severe peripheral vascular disease with previous lower extremity revasc ularization and ultimately left lower extremity BKA. She is admitted to the hospital now with chest discomfort, palpitations, and dizziness. She has had problems now for the last month or so, more r ecently with symptoms of chest discomfort. She describes these episodes where she develops an accel erated heart rate associated with low blood pressure, lightheadedness, shortness of breath, and occa sionally chest discomfort. Several of these episodes have been witnessed here on the telemetry unit . Oftentimes, her blood pressure will dip into the 80 mmHg systolic range, associated with heart ra fabio up into the 120s to 140s. At these times, she states that she feels absolutely terrible. She h ad a stress myocardial perfusion imaging study which was completed today, which was noted to be norm al. She states that she really has not been very good about drinking fluids. While she has been he re, she has had occasional episodes of diarrhea. She has not had any vomiting. She has not had any recent febrile illnesses. I did ask that orthostatic vital signs be taken. After 2 minutes of sta nding, the patient developed symptoms of dizziness, tachycardia, with a systolic blood pressure of 6 5 mmHg. PAST MEDICAL HISTORY: 1. Type 2 diabetes mellitus diagnosed in 2006 at a time when she presented with a stroke. She is c urrently on insulin. 2. History of CVA in 1999. She has residual very mild weakness and memory deficits. 3. History of systemic lupus erythematosus. 4. History of antiphospholipid antibody syndrome with previous clots, now on rivaroxaban. 5. Hypothyroidism. 6. Depression/anxiety/PTSD. 7. Farrah thyroiditis. 8. History of hypertension. 9. Polycystic ovarian disease. SURGICAL HISTORY: 1. She has had a left BKA. 2. Peripheral vascular disease surgery. I do not have any records detailing this; however, she sta fabio that she has had 3 prior bilateral fem-pop bypasses culminating in some form of an aortic bypass surgery. She also states that she had previous lower extremity revascularization that occurred aft er her aortic bypass surgery. This was apparently performed in 2012. 3. Tubal ligation. 4. Tonsillectomy with adenoidectomy. FAMILY HISTORY: Apparently her mother had coronary disease, although was a heavy smoker. SOCIAL HISTORY: She is currently not . She has 2 children, although she apparently is estra nged from both. At the present time, she is homeless and living in her car. She is disabled. She smoked 1-1/2 packs a day, apparently quit 7 years ago. 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 ALLERGIES: Apparently she is allergic to aspartame, morphine, and sulfa. REVIEW OF SYSTEMS: A full 10-point review of systems was performed and is otherwise negative. DATABASE: Her ECG demonstrates sinus rhythm to sinus tachycardia with no ischemic ST or T changes. There is a left axis deviation. She had a chest CT performed with no evidence of PE. There was barragan ggestion of pulmonary arterial hypertension or potentially aneurysm of the main pulmonary artery. S tress MPI: This was a Lexiscan study. This was negative for ischemia. Chest x-ray noted to be nor mal. Her white blood cell count is 2.59, hematocrit 32.3, platelet count 251,000. INR on therapy i s 1.16. She is on Xarelto. D-dimer elevated at 1.35. Sodium 141, potassium 3.9, BUN 14, creatinin e 1.3. Blood sugars have been widely variable. Liver function tests normal. Troponin negative and terminal proBNP on previous admission was negative. Albumin 3.3. PHYSICAL EXAMINATION: VITAL SIGNS: Her blood pressure currently 87/58, drops to 60 mmHg systolic w hen standing. Heart rates have been anywhere from 60 up to 115. GENERAL: She is a healthy-appeari ng white female, in no acute distress. HEENT: Normocephalic, atraumatic. NECK: Normal carotids. No bruits. No jugular venous distention. No thyromegaly. RESPIRATORY: She speaks in full senten dany, using no accessory muscles. On auscultation, she has clear lung scott bilaterally. CARDIAC: Precordial inspection unremarkable. PMI is nondisplaced. On auscultation is a regular rate and rh ythm with a 1/6 systolic ejection murmur that does not worsen with Valsalva. ABDOMEN: Demonstrates a midline surgical incision from her xiphoid down to her symphysis pubis. She has no masses or hep atosplenomegaly. She has normal bowel sounds. EXTREMITIES: She has a left BKA. Right lower extre mity is warm and has good capillary refill. VASCULATURE: She has palpable pulses in both of her fe moral arteries. There is evidence of surgical scars in this distribution. She has 1+ dorsal pedal pulse on her right lower extremity. NEUROLOGIC: She is alert and oriented, with pleasant mood and affect. Moves all 4 limbs spontaneously. IMPRESSION: 1. Constellation of symptoms that includes palpitations, hypotension, dyspnea, and episodes of ches t discomfort. She has documented profound orthostasis that coincides with these symptoms. It sound s as if she is experiencing some form of autonomic instability leading to this syndrome. Certainly her diabetes could be at fault. Other possibilities include abnormalities of her thyroid. It shoul d be mentioned that previous TSH was markedly suppressed back in January. Additionally, she could have some form of an adrenal axis disorder. 2. Chest discomfort. It is atypical in nature. Recent stress test was negative. She is, however, at very high risk for the development of coronary artery disease. Presently, I do not think she re quires angiography; however, aggressive secondary prevention is certainly indicated. 3. Peripheral vascular disease. This is as described above. Presently, this appears to be stable. 4. History of an abnormal echocardiogram. Previous echocardiogram has indicated a dynamic left rickey tricular outflow tract gradient. She was, however, hyperdynamic at the present time. There is, how ever, no indication that she has hypertrophic cardiomyopathy. I think her left ventricular outflow tract gradient was simply a reflection of the hyperdynamic nature of her heart at that particular ti me. Her exam is really not consistent with hypertrophic cardiomyopathy. 5. Type 2 diabetes mellitus. 6. Dilated pulmonary artery. Question pulmonary arterial hypertension versus pulmonary arterial an eurysm. Her previous echocardiogram from did not specifically comment on her pulmonary a rtery. We may consider repeat study or dedicated CT scan to evaluate her pulmonary artery. RECOMMENDATIONS: 1. I think that her antihypertensive medication should be discontinued for now. This includes her CRISTI inhibitor and beta wilbert. These have been held since she was admitted. 2. It might be advantageous to consider discontinuing her Effexor and Vyvanse. Both of these can c ontribute to her symptomatology and promote tachycardia. Certainly, I would defer to her primary ca re team. 3. I would like her to be aggressively hydrated overnight. She can receive an initial bolus follow ed by 100 cc/hour. After aggressive hydration, we can reassess her orthostatic vital signs. 4. I would like her to be evaluated further with a repeat TSH, a.m. cortisol, and a.m. ACTH. We wi ll consider ACTH stim test if needed. 5. I would like her to have fasting lipids and a hemoglobin A1c. 6. I will write for repeat echocardiogram to evaluate her pulmonary artery dimensions. 7. We will follow along with you. /[id number]/MODL
[2017-03-15 18:19] LABS: ANION GAP 10 mEq/L (8-16); CALCIUM 8.4 mg/dL (8.5-10.4); CARBON DIOXIDE 18 mEq/l (22-31); CHLORIDE 102 mEq/L (97-110); CREATININE 1.5 mg/dL (0.6-1.0); GLOMERULAR FILTRATION RATE 36; GLUCOSE 365 mg/dL (70-100); POTASSIUM 5.1 mEq/L (3.5-5.2); SODIUM 130 mEq/L (134-144)
[2017-03-15 18:28] LABS: % SATURATION 7 % (20-55); TOTAL IRON BINDING CAPACITY 320 ug/dL (260-490)
[2017-03-15] MEDS: INSULIN LISPRO 100 UNIT/ML SC SCH ×2 (19:23→19:24)
--- NOTE | 2017-03-15 20:09 | HOSPPROG ---
Hospitalist Progress Note Assessment/Plan: 1. Chest pain. -high risk with insulin dependent diabetes and peripheral vascular disease, Lexiscan given her inability to exercise, serial troponins, tele - underlying hypertrophic obstructive cardiomyopathy per old records resulting in pre-syncope in the setting of dehydration, htn meds held, cardiology to re-eval dx -cardiology consult done, discussed care plan with Dr Lewis -? orthostatic hypotension vs diabetic autonomic neuropathy vs endo issues, labs ordered, TEDs, continue with IV hydration, ? need for tilt table testing ( pt says not done prev) 2. Acute kidney injury. Unclear etiology, potentially secondary to poor oral intake and resultant hypovolemia -get urinalysis and fractional excretion of sodium -hold CRISTI I/B wilbert bc of labile BPs also -continue IV normal saline hydration, encouraged PO 3. Antiphospholipid syndrome. Chronic, currently on Xarelto -positive D-dimer, CT angiogram neg for pulmonary embolism 4. Diabetes mellitus. insulin dependent -home insulin regimen + SSI -cardiac/con carb diet 5. Homeless -CM to assist with resources 6. DVT Prophylaxis -High risk patient, Xarelto DNR, PCP Jessenia Sage at [facility] dispo- likely > 2 mdnts given multiple med issues, pending cardiac eval Subjective: Very worried, homeless. No SOB, occ dizziness/CP. Occ diarrhea. No n /v. No melena/hematocheia. Says colonoscopy in 40s, doens't think has had one in > 5 years. Objective: Vital Signs Temp Pulse Resp BP Pulse Ox 98.4 F 66 19 96/57 L 94 03/15/17 16:38 03/15/17 16:38 03/15/17 16:38 03/15/17 16:38 03/15/17 16:38 PT 14.5 SEC (12.0-15.0) 03/14/17 22:58 INR 1.16 (0.83-1.16) 03/14/17 22:58 - Time Spent With Patient Time Spent with Patient: greater than 35 minutes Time Spent with Patient: Greater than 35 minutes spent on this patients care, greater than 50% of time spent counseling, educating, and coordinating care regarding the above mentioned plan. - Physical Exam Constitutional: no apparent distress, appears nourished, not in pain Eyes: PERRL, anicteric sclera, EOMI Ears, Nose, Mouth, Throat: moist mucous membranes, hearing normal Cardiovascular: regular rate and rhythym, no murmur, rub, or gallop Respiratory: no respiratory distress, no rales or rhonchi, clear to auscultation Gastrointestinal: normoactive bowel sounds, soft, non-tender abdomen, no palpable masses Skin: warm Musculoskeletal: other (LOMAS) Neurologic: AAOx3, sensation intact bilaterally, other (awake, alert, appropriate) Psychiatric: interacting appropriately, not encephalopathic, thought process linear, anxious ICD10 Worksheet Patient Problems: Problems Problem Status Onset Chest pain Acute Abscess Acute Methicillin resistant Staphylococcus aureus infection Acute Orthostatic hypotension Acute
[2017-03-15] MEDS ORDERED: MAGNESIUM HYDROXIDE 30 ML UDCUP PO PRN (20:16)
[2017-03-15] MEDS ORDERED: LACTULOSE 20 GM/30 ML UDCUP PO PRN (20:16)
[2017-03-15] MEDS ORDERED: POLYETHYLENE GLYCOL 3350 17 GM PKT PO PRN (20:16)
[2017-03-15] MEDS ORDERED: BISACODYL 10 MG SUPP PR PRN (20:16)
[2017-03-15] MEDS ORDERED: ZOLPIDEM TARTRATE 5 MG TAB PO PRN (20:17)
[2017-03-15] MEDS: INSULIN GLARGINE 100 UNITS/ML SYRINGE SC SCH (20:42)
[2017-03-15] MEDS ORDERED: FERROUS SULFATE 140 MG TAB.ER PO SCH (21:00)
[2017-03-16 04:58] LABS: HEMATOCRIT 30.4 % (38.0-47.0); HEMOGLOBIN 9.4 g/dL (12.6-16.3); MEAN CELL HEMOGLOBIN 20.2 pg (27.9-34.1); MEAN CELL HEMOGLOBIN CONCENTR. 30.9 g/dL (32.4-36.7); RED BLOOD CELL COUNT 4.66 10^6/uL (4.18-5.33)
[2017-03-16 05:06] LABS: MEAN CELL VOLUME 65.2 fL (81.5-99.8); RED CELL DISTRIBUTION WIDTH 20.8 % (11.5-15.2)
[2017-03-16 05:19] LABS: ANION GAP 11 mEq/L (8-16); CALCIUM 8.9 mg/dL (8.5-10.4); CARBON DIOXIDE 19 mEq/l (22-31); CHLORIDE 107 mEq/L (97-110); CHOLESTEROL 99 mg/dL (140-220); CHOLESTEROL/HDL RATIO 2.41 RATIO (1.00-4.44); CREATININE 1.3 mg/dL (0.6-1.0); GLOMERULAR FILTRATION RATE 43; GLUCOSE 150 mg/dL (70-100); HIGH DENSITY LIPOPROTEIN 41 mg/dL (40-85); LDL/HDL RATIO 0.83 RATIO (1.00-3.22); LOW DENSITY LIPOPROTEIN 34 mg/dL (80-100); NON-HIGH DENSITY LIPOPROTEIN 58 mg/dL (90-129); POTASSIUM 4.4 mEq/L (3.5-5.2); SODIUM 137 mEq/L (134-144); TRIGLYCERIDE 120 mg/dL (35-135); VERY LOW DENSITY LIPOPROTEINS 24 mg/dL (8-25)
[2017-03-16 05:42] LABS: CORTISOL-AM 6.7 ug/dL (4.5-22.7)
[2017-03-16] MEDS ORDERED: FERROUS SULFATE 140 MG TAB.ER PO SCH (08:45)
[2017-03-16] MEDS: INSULIN LISPRO 100 UNIT/ML SC SCH ×4 (09:20→18:32)
[2017-03-16] MEDS: INSULIN GLARGINE 100 UNITS/ML SYRINGE SC SCH ×2 (09:23→20:40)
[2017-03-16 10:37] LABS: HEMOGLOBIN A1C 10.9 % (4.0-6.0)
--- NOTE | 2017-03-16 11:52 | ECHO ---
[id number] + + [id number] : : [place] [address] : : [phone] + + Adult Echocardiographic Report + --------+ :Name: ERIN CLARK Date: 03/16/2017 08:47 AM BP: 111/58 mm Hg : : Hospital Admission Number: [id number] Locat ion: 216: :: 1960 Gender: Female Height: 72 in : :Age: 56 yrs Race: WH Weight: 210 l b : :Reason For Study: eval PAHTN and measure main PA : : BSA: 2.2 mete rs2 : :History: evaluate for PAHTN and measure main PA. : + --------+ MMode/2D Measurements \T\ Calculations IVSd: 1.3 cm LVIDd: 3.6 cm FS: 45.7 % MPA diam: 1.8 cm LVPWd: 1.0 cm LVIDs: 2.0 cm EDV(Teich): 55.8 ml MPA area: 2.6 cm2 ESV(Teich): 12.3 ml EF(Teich): 77.9 % Normal Measurement Values: + + :LVIDd (3.5-5.7cm) IVSd (0.6-1.1cm) LVPWd (0.6-1.1cm) Aortic Root (2.0-3.7cm)Left Atrium (1.5-4.0cm): :LV Vol(d) (76-115ml) LV Vol(s) (29-48ml) Ejec Fraction (50-65%)PV Nba (0.6- 1.2m/s) TV Nba (0.4-1.0m/s) : :MV E Nba (0.8-1.0m/s)MV A Nba (0.3-1.0m/s)LVOT Nba (0.7-1.2m/s) Asc Ao Nba ( 0.9-1.8m/s) : + + Doppler Measurements \T\ Calculations LV V1 max: 139.8 cm/sec PA V2 max: 91.1 cm/sec LV V1 max P.8 mmHg PA max P.3 mmHg Left Ventricle The left ventricle is normal in size and function. There is mild concentric left ventricular hypertrophy. Ejection Fraction = 65%. There is Doppler evidence for diastolic dysfunction. The left ventricular wall motion is normal. Right Ventricle The right ventricle is normal in size and function. Inadequate TR signal; unable to assess PA pressures. Mitral Valve The mitral valve is normal. There is trace to mild mitral regurgitation. Tricuspid Valve Normal tricuspid valve. No tricuspid regurgitation. Aortic Valve The aortic valve is trileaflet. Pulmonic Valve The pulmonic valve is not well visualized. There is no pulmonic valvular regurgitation. Great Vessels The pulmonary artery is not well visualized, but is probably normal size. Pericardium/Pleural Small pericardial effusion. Conclusion Limited echocardiogrtam to evaluate for PAHTN and main PA. (1) Left ventricular systolic ejection fraction was normal (>65%) - normal wall motion (2) Mild concentric left ventricular hypertrophy - LVOT gradient was noted again on this study (3) Diastolic dysfunction was present (4) Normal right ventricular size and function (5) Normal atrial dimensions (6) Trace/mild mitral regurgitation (7) Trileaflet aortic valve without appreciable sclerosis or insufficiency (8) Grossly normal tricuspid valve (9) Poor visualization of the pulmonic valve (10) Small pericardial effusion (no tamponade) (11) In comparison to echocardiogram from 02-06-17, no significant changes have been noted. Final Reading Physician: Hamzah Lopez signed on 03/16/2017 11:49 AM Ordering Physician: Zack Lewis Performed By: Carol Fall
--- NOTE | 2017-03-16 12:26 | PDCARPN ---
Cardiology Progress Note Chief Complaint: Malaise Assessment/Plan: Assessment: Patient is a 56 y/o female with history of poorly controlled DM (A1C was >10), PVD, Lupus, CVA, but no history of CAD (unremarkable MPI was performed with this hospital admission), who presents to [facility] with complaints of chest discomfort, dizziness, palpitations, and elevated heart rates. Dr. Eliza Lewis saw the patient in consultation yesterday (post MPI) and recommended fluids ( which were reportedly not advanced well, per patient reports), and cessation of antihypertensive therapy. CT of the chest was performed to ensure that the elevated D-dimer was not secondary to pulmonary embolism (no PE was noted). As a result of hydration (which, according to nursing was via PO, not IV), the patient feels moderately better today. Echo was grossly normal without appreciable changes in comparison to prior. Normal LVEF was noted. Normal wall motion. Today, the patient reports that she is feeling better. No chest pains, and the "woozy" feeling in her head has resolved. The patient continues to feel less than what she would consider is "normal", but she is feeling better. Plan: Several options were discussed with patient, and I feel that these options were similar to those which was mentioned by my partner yesterday. Given the improvement in symptomatology that was noted with conservative management, would continue this treatment plan. Patient with (a) contrast allergy, (b) mild elevation in renal function, and (c) not really wanting to have "invasive" testing, if avoidable. She also understands that if there is a lack of continued improvement with conservative approach, that the invasive option ( angiography) might be the next step. Improvement in renal function has been noted overnight, and would continue fluids (PO has been preferred and reportedly good). Subjective: Patient reports that she is feeling better today. Previous "woozy" feeling has resolved, and no chest pains/pressure have been noted today. Reviewed/Discussed With: hospitalist, multidisciplinary team Objective: Vital Signs (8 Hrs) Temp Pulse Resp BP Pulse Ox 03/16/17 11:22 36.8 C 97 121/72 H 95 03/16/17 07:37 36.7 C 84 16 111/55 L 92 03/16/17 04:02 36.8 C 102 H 16 118/66 94 Intake/Output (24 Hrs) 03/15/17 03/16/17 03/17/17 05:59 05:59 05:59 Intake Total 390 Output Total 1250 Balance -860 Intake: Oral (ml) 380 IV Intake (ml) 10 Output: Urine (ml) 1250 Toilet 1250 Other: Weight 93.7 kg Intake Quantity Yes Sufficient Result Diagrams: 03/16/17 04:44 03/16/17 04:44 Cardiac Labs: Laboratory Tests 03/14/17 03/14/17 03/15/17 22:58 22:58 04:01 D-Dimer 1.35 H Creatinine Hemoglobin A1c Troponin I < 0.012 < 0.012 03/16/17 03/16/17 04:44 04:44 D-Dimer Creatinine 1.3 H Hemoglobin A1c 10.9 H D Troponin I EKG: Sinus tachycardia without ST/T wave changes noted Echocardiogram: Normal LVEF with normal wall motion - Physical Exam Constitutional: WDWN, no apparent distress, obese Eyes: PERRL, EOMI Ears, Nose, Mouth, Throat: moist mucous membranes Cardiovascular: regular rate and rhythm (tachycardia), no murmurs, no rubs, No systolic murmur Peripheral Pulses: 2+: dorsalis-pedis (R), dorsalis-pedis (L) Respiratory: clear to auscultate bilat, no crackles, no wheezes Gastrointestinal: normoactive bowel sounds Skin: no edema Musculoskeletal: no muscular tenderness Neurologic: AAOx3, CN II-XII grossly intact Psychiatric: cooperative, interactive, following commands, not anxious ICD10 Worksheet Patient Problems: Problems Problem Status Onset Chest pain Acute Abscess Acute Methicillin resistant Staphylococcus aureus infection Acute Orthostatic hypotension Acute
[2017-03-16] MEDS ORDERED: ACETAMINOPHEN 500 MG TAB PO PRN (15:39)
[2017-03-16] MEDS: PREGABALIN 75 MG CAP PO SCH ×2 (16:46→21:22)
--- NOTE | 2017-03-16 16:47 | HOSPPROG ---
Hospitalist Progress Note Assessment/Plan: 1. Chest pain. -high risk with insulin dependent diabetes and peripheral vascular disease, Lexiscan given her inability to exercise, serial troponins, tele -neg stress and essntially normal echo anemia: iron deficiency will pursue inpatient endoscopy given challenges w outpt prep (homelessness, BKA) 2. Acute kidney injury. Unclear etiology, potentially secondary to poor oral intake and resultant hypovolemia -get urinalysis and fractional excretion of sodium -hold CRISTI I/B wilbert bc of labile BPs also -continue IV normal saline hydration, encouraged PO 3. Antiphospholipid syndrome. Chronic, currently on Xarelto -positive D-dimer, CT angiogram neg for pulmonary embolism 4. Diabetes mellitus. insulin dependent -home insulin regimen + SSI -cardiac/con carb diet 5. Homeless -CM to assist with resources 6. DVT Prophylaxis -High risk patient, Xarelto DNR, PCP Jessenia Sage at [facility] Subjective: no events tele (interp by me). case d/w dr corral Objective: Vital Signs Temp Pulse Resp BP Pulse Ox 36.9 C 88 16 139/68 H 96 03/16/17 15:37 03/16/17 15:37 03/16/17 07:37 03/16/17 15:37 03/16/17 15:37 Laboratory Results 03/16/17 04:44 03/16/17 04:44 03/15/17 03/16/17 03/17/17 05:59 05:59 05:59 Intake Total 390 Output Total 1250 Balance -860 PT 14.5 SEC (12.0-15.0) 03/14/17 22:58 INR 1.16 (0.83-1.16) 03/14/17 22:58 - Physical Exam Constitutional: no apparent distress, appears nourished Eyes: PERRL, anicteric sclera, EOMI Ears, Nose, Mouth, Throat: moist mucous membranes, hearing normal Cardiovascular: regular rate and rhythym, no murmur, rub, or gallop Respiratory: no respiratory distress, no rales or rhonchi Gastrointestinal: normoactive bowel sounds, soft, non-tender abdomen Genitourinary: no bladder fullness Skin: warm, normal color Musculoskeletal: full muscle strength Neurologic: AAOx3 ICD10 Worksheet Patient Problems: Problems Problem Status Onset Chest pain Acute Abscess Acute Methicillin resistant Staphylococcus aureus infection Acute Orthostatic hypotension Acute
[2017-03-16] MEDS ORDERED: NON-FORMULARY NEW DRUG (Insulin Aspart [Novolog] 0 UNIT) SC SCH (18:00)
[2017-03-16] MEDS ORDERED: RIVAROXABAN 20 MG TAB PO SCH (18:00)
--- NOTE | 2017-03-16 18:04 | GCON ---
[f rep st] CONSULTATION DATE OF CONSULTATION: 03/16/2017 HISTORY OF PRESENT ILLNESS: I was kindly requested to see the patient by Dr. Goyo Rboertson in consultation for a chief complaint of anemia. She was admitted with chest pain. Her hematocrit is 30.4%. Her MCV is 65.2%, and she is iron deficient, with a saturation of 7%. In 2013, her hematocrit was normal. For the most part, she denies any blood in her stool. She denies using aspirin , nonsteroidals. Her last surgery was in 2013 when she had a stump revision. She denies hematemesis, maroon stools, rigors, chills. PAST MEDICAL HISTORY: 1. As above. 2. Diabetes mellitus. 3. Antiphospholipid antibody syndrome. 4. Past CVA. 5. Peripheral vascular disease. 6. Depression. 7. Anxiety. 8. PTSD. 9. Farrah's thyroiditis. 10. Aortic bypass surgery. 11. Left BKA. ALLERGIES: Include morphine, sulfur. MEDICATIONS: Inpatient medications include IV fluids, Lopressor, lisinopril, Lipitor, iron twice a day, insulin, Synthroid, Xarelto, Lyrica, and Effexor. SOCIAL HISTORY: She is presently homeless, living in her car. FAMILY HISTORY: Negative for similar anemia. REVIEW OF SYSTEMS: Positive pertinent review of systems as per my HPI. Otherwise, a complete review of systems is negative. PHYSICAL EXAM: CONSTITUTIONAL: Nontoxic-appearing, pleasant woman. SKIN: Warm, dry. EYES: Pupils equal, round, reactive to light and accommodation. EARS, NOSE, MOUTH AND THROAT: Oropharynx without masses, moist mucosa. CARDIOVASCULAR: Normal S2, normal PMI. RESPIRATORY: Lungs clear to auscultation and percussion anteriorly. GASTROINTESTINAL: Abdomen profuse, nontender. NEUROLOGIC: Grossly nonfocal, with cranial nerves grossly intact. PSYCHIATRIC: Orientation and insight appropriate. MUSCULOSKELETAL: Status post BKA. Normal strength throughout. Normal station. LABORATORY DATA: Include the above. Normal liver function tests. Normal coags. Creatinine 1.3. ASSESSMENT: Iron-deficiency anemia, new since 2013. Although this could be nutritional only, certainly a chronic gastrointestinal blood loss is possible. This could include a colon lesion, such as AVM, colon polyp, colon cancer, etc. An upper GI tract lesion, such as AVM, gastric cancer, etc., is also possible , but less likely. PLAN: 1. Will perform upper endoscopy, colonoscopy while here in the hospital. We will stop her Xarelto now and do this 48 hours later, where we can safely remove significant polyps, etc. 2. Will begin her prep tomorrow night. For dinner tomorrow night, will switch her to clears and then have her be n.p.o. after midnight, except meds, sips of water. 3. She is already on IV fluids. 4. Of note, with her chest pain, diabetes, antiphospholipid antibody syndrome, past CVA, peripheral vascular disease, etc., she certainly is at increased risk for these procedures. However, suspect the benefits outweigh the risks, and suspect she will do well. 5. We will stop her iron in preparation for the above procedures. Thank you for allowing me to help in the management of this patient. /[id number]/MODL MTDD
[2017-03-16] MEDS: VENLAFAXINE XR 150 MG CAP PO SCH (20:39)
[2017-03-16] MEDS: ATORVASTATIN CALCIUM 20 MG TAB PO SCH (20:39)
[2017-03-16] MEDS: METOPROLOL TARTRATE 25 MG TAB PO SCH (20:40)
[2017-03-16] MEDS ORDERED: INSULIN DETEMIR 15 UNIT SQ SCH (21:00)
[2017-03-16] MEDS ORDERED: RIVAROXABAN 15 MG TAB PO SCH (21:00)
[2017-03-17] MEDS: LEVOTHYROXINE 112 MCG TAB PO SCH (05:58)
[2017-03-17] MEDS: INSULIN LISPRO 100 UNIT/ML SC SCH ×3 (08:17→17:54)
[2017-03-17] MEDS ORDERED: Herbals/Supplements -Info Only PO SCH (09:00)
[2017-03-17] MEDS ORDERED: NON-FORMULARY NEW DRUG (Insulin Detemir [Levemir] 30 UNIT) SQ SCH (09:00)
[2017-03-17] MEDS: PREGABALIN 75 MG CAP PO SCH ×2 (09:26→16:51)
[2017-03-17] MEDS: MULTIVITAMINS 1 EACH TAB PO SCH (09:26)
[2017-03-17] MEDS: LISINOPRIL 40 MG TAB PO SCH (09:26)
[2017-03-17] MEDS: METOPROLOL TARTRATE 25 MG TAB PO SCH (09:26)
[2017-03-17] MEDS: NON-FORMULARY NEW DRUG (Lisdexamfetamine Dimesylate [Vyvanse] 40 MG) PO SCH (09:27)
[2017-03-17] MEDS: INSULIN GLARGINE 100 UNITS/ML SYRINGE SC SCH ×2 (09:32→22:23)
--- NOTE | 2017-03-17 09:42 | PDCARPN ---
Cardiology Progress Note Chief Complaint: Patient continues to feel better overall. No complaints Assessment/Plan: Assessment: 03-17-17 Patient had a good night of sleep, and reports that she is feeling better today. GI consult note was noted from yesterday, and there are plans for an upper endoscopy tomorrow. Patient was pleased with this interaction. She voiced concerns about ongoing anemia without cause. No chest pains or pressure , no PND or orthopnea today. Patient was up in the room ambulating with walker this morning. 03-16-17 Patient is a 56 y/o female with history of poorly controlled DM (A1C was >10), PVD, Lupus, CVA, but no history of CAD (unremarkable MPI was performed with this hospital admission), who presents to [facility] with complaints of chest discomfort, dizziness, palpitations, and elevated heart rates. Dr. Eliza Lewis saw the patient in consultation yesterday (post MPI) and recommended fluids ( which were reportedly not advanced well, per patient reports), and cessation of antihypertensive therapy. CT of the chest was performed to ensure that the elevated D-dimer was not secondary to pulmonary embolism (no PE was noted). As a result of hydration (which, according to nursing was via PO, not IV), the patient feels moderately better today. Echo was grossly normal without appreciable changes in comparison to prior. Normal LVEF was noted. Normal wall motion. Today, the patient reports that she is feeling better. No chest pains, and the "woozy" feeling in her head has resolved. The patient continues to feel less than what she would consider is "normal", but she is feeling better. Plan: (1) Would continue conservative cardiovascular management (2) Plans for upper GI endoscopy tomorrow (3) Will continue to follow patient Subjective: No complaints Reviewed/Discussed With: multidisciplinary team Objective: Vital Signs (8 Hrs) Temp Pulse Resp BP Pulse Ox 03/17/17 08:00 36.4 C 73 19 151/83 H 97 03/17/17 04:01 36.8 C 91 16 156/73 H 94 Intake/Output (24 Hrs) 03/16/17 03/17/17 03/18/17 05:59 05:59 05:59 Intake Total 390 1100 Output Total 1250 1500 Balance -860 -400 Intake: Oral (ml) 380 1100 IV Intake (ml) 10 Output: Urine (ml) 1250 1500 Toilet 1250 1500 Other: Weight 93.7 kg Intake Quantity Yes Sufficient Result Diagrams: 03/16/17 04:44 03/16/17 04:44 Telemetry: sinus rhythm - Physical Exam Constitutional: WDWN, healthy appearing, no apparent distress Eyes: PERRL, EOMI Ears, Nose, Mouth, Throat: moist mucous membranes Cardiovascular: regular rate and rhythm, no murmurs, no rubs Peripheral Pulses: 2+: dorsalis-pedis (R), dorsalis-pedis (L) Respiratory: clear to auscultate bilat, no crackles, no wheezes, No reduced air movement Gastrointestinal: normoactive bowel sounds Skin: no rashes, no edema Musculoskeletal: no muscular tenderness Neurologic: AAOx3, CN II-XII grossly intact Psychiatric: cooperative, interactive, following commands ICD10 Worksheet Patient Problems: Problems Problem Status Onset Chest pain Acute Abscess Acute Methicillin resistant Staphylococcus aureus infection Acute Orthostatic hypotension Acute
--- NOTE | 2017-03-17 10:48 | HOSPPROG ---
Hospitalist Progress Note Assessment/Plan: 1. Chest pain. -high risk with insulin dependent diabetes and peripheral vascular disease, Lexiscan given her inability to exercise, serial troponins, tele -neg stress and essentially normal echo dc telemetry on statin start aspirin after colonoscopy anemia: iron deficiency will pursue inpatient endoscopy given challenges w outpt prep (homelessness, BKA) 2. Acute kidney injury. Unclear etiology, potentially secondary to poor oral intake and resultant hypovolemia -now euvolemic repeat in AM 3. Antiphospholipid syndrome. Chronic, currently on Xarelto -positive D-dimer, CT angiogram neg for pulmonary embolism xarelto on hold for colonoscopy restart naif after procedure 4. Diabetes mellitus. insulin dependent -home insulin regimen + SSI -cardiac/con carb diet 5. Homeless - to assist with resources 6. DVT Prophylaxis -High risk patient, Xarelto DNR, PCP Jessenia Sage at [facility] Subjective: case d/w dr singh. tele: no events (interp by me) Objective: Vital Signs Temp Pulse Resp BP Pulse Ox 36.4 C 73 19 151/83 H 97 03/17/17 08:00 03/17/17 08:00 03/17/17 08:00 03/17/17 08:00 03/17/17 08:00 Laboratory Results 03/16/17 04:44 03/16/17 04:44 03/16/17 03/17/17 03/18/17 05:59 05:59 05:59 Intake Total 390 1100 Output Total 1250 1500 Balance -860 -400 PT 14.5 SEC (12.0-15.0) 03/14/17 22:58 INR 1.16 (0.83-1.16) 03/14/17 22:58 - Physical Exam Constitutional: no apparent distress, appears nourished Eyes: PERRL, anicteric sclera Ears, Nose, Mouth, Throat: moist mucous membranes, hearing normal Cardiovascular: regular rate and rhythym, no murmur, rub, or gallop Respiratory: no respiratory distress, no rales or rhonchi Gastrointestinal: normoactive bowel sounds, soft, non-tender abdomen Genitourinary: no bladder fullness, No stuart in urethra Skin: warm Musculoskeletal: full muscle strength, no muscle tenderness Neurologic: AAOx3 ICD10 Worksheet Patient Problems: Problems Problem Status Onset Chest pain Acute Abscess Acute Methicillin resistant Staphylococcus aureus infection Acute Orthostatic hypotension Acute
[2017-03-17] MEDS ORDERED: GOLYTELY 4000 ML BTL PO ONE (17:31)
[2017-03-17] MEDS: ATORVASTATIN CALCIUM 20 MG TAB PO SCH (22:21)
[2017-03-17] MEDS: VENLAFAXINE XR 150 MG CAP PO SCH (22:22)
[2017-03-18] MEDS: METOPROLOL TARTRATE 25 MG TAB PO SCH ×2 (00:12→08:56)
[2017-03-18] MEDS: PREGABALIN 75 MG CAP PO SCH ×3 (00:13→17:43)
[2017-03-18 04:38] LABS: % IMMATURE GRANULYOCYTES 0.3 % (0.0-1.1); ABSOLUTE IMMATURE GRANULOCYTES 0.02 10^3/uL (0.00-0.10); ABSOLUTE NRBC COUNT 0.02 10^3/uL (0-0.01); ADD DIFF? NO; ADD MORPH? YES; ADD SCAN? NO; ATYPICAL LYMPHOCYTE FLAG 60 (0-99); FRAGMENT RBC FLAG 40 (0-99); HEMATOCRIT 28.3 % (38.0-47.0); HEMOGLOBIN 8.7 g/dL (12.6-16.3); LEFT SHIFT FLG 0 (0-99); LIPEMIA HEMOLYSIS FLAG 80 (0-99); MEAN CELL HEMOGLOBIN 20.3 pg (27.9-34.1); MEAN CELL HEMOGLOBIN CONCENTR. 30.7 g/dL (32.4-36.7); MEAN PLATELET VOLUME 10.3 fL (8.7-11.7); NRBC-AUTO% 0.3 % (0.0-0.2); PLATELET CLUMPS FLAG 10 (0-99); PLATELET COUNT 263 10^3/uL (150-400); RED BLOOD CELL COUNT 4.29 10^6/uL (4.18-5.33)
[2017-03-18 04:41] LABS: RED CELL DISTRIBUTION WIDTH 20.7 % (11.5-15.2)
[2017-03-18 04:44] LABS: ANION GAP 10 mEq/L (8-16); CALCIUM 9.2 mg/dL (8.5-10.4); CARBON DIOXIDE 23 mEq/l (22-31); CHLORIDE 109 mEq/L (97-110); GLOMERULAR FILTRATION RATE 58; POTASSIUM 3.6 mEq/L (3.5-5.2); SODIUM 142 mEq/L (134-144)
[2017-03-18] MEDS ORDERED: D10W 250 ML PRN HYPOGLYCEMIA IV (05:00)
[2017-03-18 05:04] LABS: GLUCOSE 36 mg/dL (70-100)
[2017-03-18] MEDS: LEVOTHYROXINE 112 MCG TAB PO SCH ×2 (05:12→08:54)
[2017-03-18 05:28] LABS: HYPOCHROMIA 1+; MICROCYTES 3+; PLATELET ESTIMATE ADEQUATE (ADEQ); POLYCHROMASIA 1+
[2017-03-18 08:20] VITALS: TEMP 97.4
[2017-03-18] MEDS: INSULIN GLARGINE 100 UNITS/ML SYRINGE SC SCH (08:54)
[2017-03-18] MEDS: INSULIN LISPRO 100 UNIT/ML SC SCH ×3 (08:56→17:44)
[2017-03-18] MEDS: NON-FORMULARY NEW DRUG (Lisdexamfetamine Dimesylate [Vyvanse] 40 MG) PO SCH (08:56)
[2017-03-18] MEDS: LISINOPRIL 40 MG TAB PO SCH (08:57)
[2017-03-18] MEDS: MULTIVITAMINS 1 EACH TAB PO SCH (09:37)
--- NOTE | 2017-03-18 09:40 | HOSPPROG ---
Hospitalist Progress Note Assessment/Plan: 1. Chest pain. -high risk with insulin dependent diabetes and peripheral vascular disease, Lexiscan given her inability to exercise, serial troponins, tele -neg stress and essentially normal echo dc telemetry on statin start aspirin after colonoscopy anemia: iron deficiency will pursue inpatient endoscopy given challenges w outpt prep (homelessness, BKA) 2. Acute kidney injury. Unclear etiology, potentially secondary to poor oral intake and resultant hypovolemia -now euvolemic repeat in AM 3. Antiphospholipid syndrome. Chronic, currently on Xarelto -positive D-dimer, CT angiogram neg for pulmonary embolism xarelto on hold for colonoscopy restart naif after procedure 4. Diabetes mellitus. insulin dependent -home insulin regimen + SSI -cardiac/con carb diet 5. Homeless - to assist with resources 6. DVT Prophylaxis -High risk patient, Xarelto DNR, PCP Jessenia Sage at [facility] Subjective: awaiting endoscopy. hypoglycemic this AM Objective: Vital Signs Temp Pulse Resp BP Pulse Ox 36.3 C 60 19 119/71 100 03/18/17 08:00 03/18/17 08:00 03/18/17 08:00 03/18/17 08:00 03/18/17 08:00 Laboratory Results 03/18/17 03:55 03/18/17 03:55 03/17/17 03/18/17 03/19/17 05:59 05:59 05:59 Intake Total 1100 5950 Output Total 1500 Balance -400 5950 PT 14.5 SEC (12.0-15.0) 03/14/17 22:58 INR 1.16 (0.83-1.16) 03/14/17 22:58 - Physical Exam Constitutional: no apparent distress, appears nourished Eyes: PERRL, anicteric sclera Ears, Nose, Mouth, Throat: moist mucous membranes, hearing normal Cardiovascular: regular rate and rhythym, no murmur, rub, or gallop Respiratory: no respiratory distress, no rales or rhonchi Gastrointestinal: normoactive bowel sounds, soft, non-tender abdomen Genitourinary: no bladder fullness, No stuart in urethra Skin: warm, normal color Musculoskeletal: full muscle strength, no muscle tenderness Neurologic: AAOx3 ICD10 Worksheet Patient Problems: Problems Problem Status Onset Chest pain Acute Abscess Acute Methicillin resistant Staphylococcus aureus infection Acute Orthostatic hypotension Acute
[2017-03-18] MEDS ORDERED: MIDAZOLAM 2 MG/2 ML VIAL ONE ×2 (10:06→10:09)
[2017-03-18] MEDS ORDERED: fentaNYL 100 MCG/2 ML INJ ONE (10:07)
--- NOTE | 2017-03-18 10:53 | POSTOPPROG ---
Post Op Note Date of Operation: 03/18/17 Surgeon: Flo Brizuela Pre-op Diagnosis: Anemia Post-op Diagnosis: same Procedure: EGD/Colon Findings: Unremarkable. See report. Inf/Abcess present in the surg proc area at time of surgery?: No
[2017-03-18] MEDS ORDERED: RIVAROXABAN 15 MG TAB PO SCH (11:00)
--- NOTE | 2017-03-18 11:25 | GPN ---
[f rep st] PROCEDURE NOTE DATE OF PROCEDURE: 03/18/2017 GI INPATIENT PROCEDURE: Upper endoscopy with biopsy, colonoscopy. INDICATION AND PREPROCEDURE DIAGNOSIS: Iron deficiency anemia. POSTPROCEDURE DIAGNOSES: 1. Upper endoscopy unremarkable. Duodenal biopsies were done to rule out a selective iron deficiency sprue (doubt). 2. Colonoscopy normal, normal terminal ilium. PREMEDICATION: Benadryl 50 mg IV, fentanyl 100 mcg IV, Versed 5 mg IV. COMPLICATIONS: None. TOTAL TIME OF PROCEDURE: From start of sedation to procedures end was 43 minutes. FINDINGS: After informed consent was obtained, the patient was placed in left lateral decubitus position. Video upper endoscope was placed under direct visualization and advanced. Duodenum was normal. Biopsies as above. The stomach was normal, except for some very small cardia polyps, benign, left alone. Esophagus was normal. The patient's gurney was then turned around. Video adult colonoscope was placed in the rectum, advanced to the terminal ilium. Upon slow withdrawal, the terminal ileum and colon were normal. IMPRESSION: No cause found for her iron deficiency anemia. With this, it is very likely that it is non-digestive in nature. Nutritional or bone marrow processes certainly might be responsible. A small bowel source, such as a GIST lesion, AVM, etc., is possible, but much less likely. PLAN: 1. We will let her eat. 2. We will restart her Xarelto. 3. We will restart her iron twice a day. I will sign off. I will arrange for her to have an outpatient small-bowel pill camera endoscopy done at some point, but might very well be unremarkable. Upon discharge, would recommend iron replacement therapy. 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 Otherwise, further management of her anemia, if needed, as per the hospitalist service and her primary care physician. Thank you for allowing me to help in the care of this patient. Please let me know if we can be of further help in the future. /[id number]/MODL MTDD
[2017-03-18] MEDS ORDERED: SODIUM FERRIC GLUCONAT/SUCROSE 125 MG in NS 100 ML IV ONE (13:56)
[2017-03-18 16:10] VITALS: BP 149/71; PULSE 67; RESP 18; O2SAT 98
--- NOTE | 2017-03-18 16:23 | PDCARPN ---
Cardiology Progress Note Chief Complaint: Patient with anxiety about the fact that she has no home Assessment/Plan: Assessment: 03-18-17 Patient with sleep overnight. No complaints. Scheduled for endoscopy today ( upper and lower). The patient was initially seen prior to the procedures, then again after. Recommendations for supplemental iron given the anemia that was noted. GI also wanted to do "pill endoscopy" to better visualize the small bowel, but in speaking with the patient, she states that she is not going to do it. Cardiovascular symptoms that were noted (at the time of admission), have, for the most part, resolved. The biggest concern for the patient is her lack of housing given the heat that is noted (>90 degrees outside at present). 03-17-17 Patient had a good night of sleep, and reports that she is feeling better today. GI consult note was noted from yesterday, and there are plans for an upper endoscopy tomorrow. Patient was pleased with this interaction. She voiced concerns about ongoing anemia without cause. No chest pains or pressure , no PND or orthopnea today. Patient was up in the room ambulating with walker this morning. 03-16-17 Patient is a 56 y/o female with history of poorly controlled DM (A1C was >10), PVD, Lupus, CVA, but no history of CAD (unremarkable MPI was performed with this hospital admission), who presents to [facility] with complaints of chest discomfort, dizziness, palpitations, and elevated heart rates. Dr. Eliza Lewis saw the patient in consultation yesterday (post MPI) and recommended fluids ( which were reportedly not advanced well, per patient reports), and cessation of antihypertensive therapy. CT of the chest was performed to ensure that the elevated D-dimer was not secondary to pulmonary embolism (no PE was noted). As a result of hydration (which, according to nursing was via PO, not IV), the patient feels moderately better today. Echo was grossly normal without appreciable changes in comparison to prior. Normal LVEF was noted. Normal wall motion. Today, the patient reports that she is feeling better. No chest pains, and the "woozy" feeling in her head has resolved. The patient continues to feel less than what she would consider is "normal", but she is feeling better. Plan: (1) Would continue conservative cardiovascular management (2) Outpatient follow up with cardiology Subjective: No cardiovascular complaints, but concerns about living situation Reviewed/Discussed With: multidisciplinary team Objective: Vital Signs (8 Hrs) Temp Pulse Resp BP Pulse Ox 03/18/17 16:00 36.3 C 67 18 149/71 H 98 03/18/17 11:20 13 148/84 H 96 03/18/17 11:11 14 148/84 H 97 03/18/17 11:07 62 13 133/79 H 98 03/18/17 11:01 14 133/79 H 100 03/18/17 10:57 56 L 13 147/82 H 100 03/18/17 10:53 13 147/82 H 100 Intake/Output (24 Hrs) 03/17/17 03/18/17 03/19/17 05:59 05:59 05:59 Intake Total 1100 5950 Output Total 1500 Balance -400 5950 Intake: Oral (ml) 1100 5700 IV Infused (ml) 250 D10w 250 ml @ Wide Open 250 IV PRN PRN Rx#:[id number] Output: Urine (ml) 1500 Toilet 1500 Other: Weight 93.7 kg Result Diagrams: 03/18/17 03:55 03/18/17 03:55 - Physical Exam Constitutional: WDWN, healthy appearing, obese Eyes: PERRL, EOMI Ears, Nose, Mouth, Throat: moist mucous membranes Cardiovascular: regular rate and rhythm, no murmurs, no rubs, no gallops Peripheral Pulses: 2+: dorsalis-pedis (R), dorsalis-pedis (L) Respiratory: clear to auscultate bilat, no crackles, no wheezes Gastrointestinal: normoactive bowel sounds Skin: no rashes Musculoskeletal: no muscular tenderness Neurologic: AAOx3, CN II-XII grossly intact Psychiatric: cooperative, interactive, following commands, anxious ICD10 Worksheet Patient Problems: Problems Problem Status Onset Chest pain Acute Abscess Acute Methicillin resistant Staphylococcus aureus infection Acute Orthostatic hypotension Acute
--- NOTE | 2017-03-18 20:06 | GDS ---
[f rep st] DISCHARGE SUMMARY DISCHARGE DIAGNOSES: 1. Diabetes with poor control. 2. History of antiphospholipid antibody syndrome requiring BKA to her left leg. 3. Chest pain with negative stress test. 4. Iron deficiency anemia with negative upper and lower endoscopy. 5. Acute kidney injury, now resolved. HISTORY OF PRESENT ILLNESS: Please see admission history and physical by Dr. Gaurang Garcia. HOSPITAL COURSE: The patient was admitted. She had a negative CT PE that was negative for PE. She had a myocardial perfusion scan that was negative for ischemia. She had negative troponins and a n egative echocardiogram. She was noted to have iron deficiency anemia. She is postmenopausal. She had an endoscopy, without evidence of blood loss. She was discharged home today. She received a dose of IV iron. As well, given a prescription for o ral iron. /[id number]/MODL
[2017-03-18] MEDS ORDERED: FERROUS SULFATE 140 MG TAB.ER PO SCH (21:00)
[2017-03-19] MEDS ORDERED: NON-FORMULARY NEW DRUG (Lisdexamfetamine Dimesylate [Vyvanse] 40 MG) PO SCH (09:00)
== END 2017-03-18 19:01 | disposition home or self-care (01) | DRG 313 ==
LOC: CED 22:44 → CEDHOLD 03-15 00:11 → F2W 03-15 02:03 → OBSVTOIN 03-15 18:29
PROVIDERS: ADMIT Internal Medicine; ATTEND Internal Medicine
PROC: 0DJD8ZZ Inspection of Lower Intestinal Tract, Via Natural or Artificial Opening Endoscopic (ICD-10-PCS; principal; 2017-03-18 10:00)
PROC: 0DB98ZX Excision of Duodenum, Via Natural or Artificial Opening Endoscopic, Diagnostic (ICD-10-PCS; principal; 2017-03-18 10:00)
DX: R07.9 Chest pain, unspecified (principal); N17.9 Acute kidney failure, unspecified; E11.65 Type 2 diabetes mellitus with hyperglycemia; D68.61 Antiphospholipid syndrome; F43.10 Post-traumatic stress disorder, unspecified; F41.9 Anxiety disorder, unspecified; F32.9 Major depressive disorder, single episode, unspecified; E03.8 Other specified hypothyroidism; K21.9 Gastro-esophageal reflux disease without esophagitis; I69.311 Memory deficit following cerebral infarction; M32.9 Systemic lupus erythematosus, unspecified; D50.9 Iron deficiency anemia, unspecified; I73.9 Peripheral vascular disease, unspecified; Z89.512 Acquired absence of left leg below knee; Z86.718 Personal history of other venous thrombosis and embolism; Z79.01 Long term (current) use of anticoagulants; Z79.4 Long term (current) use of insulin; Z59.0 Homelessness; Z66 Do not resuscitate
CPT/HCPCS: 71010-PO; 80048-PO; 80053-PO; 80076-PO; 82024-90; 82550-PO; 82553-PO; 83690-PO; 83735-PO; 83880-PO; 84484-PO; 85025-PO; 85378-PO; 85610-PO; 85730-PO; 97166-GO; 97530-GO; 97535-GO; A9500; G8987-GO-CJ; G8988-GO-CH; J1200; J1815; J2250; J2785; J2916; J3010; Q9967

== ENCOUNTER → 2017-06-10 | Outpatient (CLI) | payer OTHER, MEDICAID | LOC: BRMIMAGING 10:38 | PROVIDERS: ATTEND Internal Medicine | DX: M19.041 Primary osteoarthritis, right hand (principal); M19.042 Primary osteoarthritis, left hand; M51.34 Other intervertebral disc degeneration, thoracic region; M25.50 Pain in unspecified joint; M50.322 Other cervical disc degeneration at C5-C6 level; M50.323 Other cervical disc degeneration at C6-C7 level; M48.02 Spinal stenosis, cervical region; M50.21 Other cervical disc displacement, high cervical region; M50.221 Other cervical disc displacement at C4-C5 level; M50.222 Other cervical disc displacement at C5-C6 level | CPT/HCPCS: 72052-PO; 72070-PO; 73130-PO ==

== ENCOUNTER 2017-08-03 21:18 | Inpatient (IN) | payer OTHER, MEDICAID ==
--- NOTE | 2017-08-03 21:48 | EDPHY ---
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 Patient states that on Thursday she developed dysuria, frequency and pain colored urine. She called her doctor this morning. She saw the on-call physician. She was started on Macrobid and is taken a single dose. She now reports increasing left flank pain. This is the site of her remaining kidney. She has also had chills. She had nausea and nonbloody vomiting. She denies abdominal pain. She has no chest pain or shortness of breath. REVIEW OF SYSTEMS: My complete review of systems is negative except as mentioned in the HPI. Past Medical/Surgical History: Includes antiphospholipid antibody syndrome, diabetes type 2, CVA, peripheral vascular disease, depression, anxiety, PTSD, Farrah's thyroiditis, esophageal reflux, obstructive sleep apnea, hypertension, cardiomyopathy Past surgical history: Includes left BKA, aortic bypass surgery Family history: Positive for coronary artery disease. Mother was stents at age 68. Social history: The patient does not smoke. She is homeless. She is currently living in her car. Smoking Status: Former smoker Physical Exam: 38.1, 135/68, 107, 18, 94% on room air GENERAL: No acute distress, alert. HEENT: Eyes normal to inspection, normal pharynx, no signs of dehydration. NECK: No thyromegaly, no lymphadenopathy, supple. RESPIRATORY: Clear to auscultation bilaterally, no rales, rhonchi or wheezing. CVS: Regular rate and rhythm, no rubs, murmurs, or gallops. ABDOMEN: Soft, nontender, nondistended, no organomegaly. BACK: Normal to inspection, mild left CVA tenderness to palpation. SKIN: Normal color, no rash, warm, dry. No pallor. EXTREMITIES: No pedal edema, no calf tenderness, no joint swelling. Left BKA NEURO/PSYCH: Alert and oriented x3, normal mood and affect, normal motor sensory exam. Constitutional: Initial Vital Signs Temperature (C) 38.1 C 08/03/17 21:32 Heart Rate 107 H 08/03/17 21:32 Respiratory Rate 18 08/03/17 21:32 Blood Pressure 135/68 H 08/03/17 21:32 O2 Sat (%) 94 08/03/17 21:32 O2 Delivery Mode Room Air Allergies/Adverse Reactions: aspartame Allergy (Verified 08/03/17 21:30) morphine Allergy (Verified 08/03/17 21:30) Sulfa (Sulfonamide Antibiotics) Allergy (Verified 08/03/17 21:30) contrast Allergy (Uncoded 08/03/17 21:30) Home Medications: Medication Instructions Recorded Insulin Aspart [novoLOG] 2 - 10 unit SC TIDMEAL 02/05/17 Insulin Detemir [Levemir] 30 unit SQ DAILY 02/05/17 Rivaroxaban [Xarelto 15mg (*)] 15 mg PO HS 02/05/17 Insulin Detemir [Levemir] 15 unit SQ HS 02/06/17 Lisdexamfetamine Dimesylate 40 mg PO DAILY 02/06/17 [Vyvanse] Lisinopril [Zestril 40 mg (*)] 40 mg PO DAILY 02/06/17 Metoprolol Tartrate [Lopressor 25 25 mg PO BID 02/06/17 mg (*)] Pregabalin [Lyrica 75mg (*)] 75 mg PO TID 02/06/17 Levothyroxine [Synthroid 112 mcg 112 mcg PO DAILY AT 6AM #30 tab 02/09/17 (*)] Acetaminophen [Tylenol ES 500 mg 1,000 mg PO Q8 PRN 03/15/17 (*)] Atorvastatin Calcium [Lipitor 20 20 mg PO HS 03/15/17 mg (*)] Herbals/Supplements -Info Only 1 ea PO DAILY 03/15/17 Multivitamins [Multivitamin (*)] 1 each PO DAILY 03/15/17 Venlafaxine Xr [Effexor Xr] 150 mg PO HS 03/15/17 Ferrous Sulfate [Slow Fe 140 MG 140 mg PO BID #60 tab.er 03/18/17 (*)] Nitrofurantoin Monohyd/M-Cryst 08/03/17 [Macrobid 100 mg Capsule] Medical Decision Making ED Course/Re-evaluation: In the emergency department I discussed possible etiologies with the patient. I answered all her questions. IV was placed. Laboratory studies including blood cultures were ordered. The patient was given normal saline 1 L IV for hydration. Patient was given Rocephin 1 g IV to cover for likely urinary source of infection. I reviewed the patient's laboratory studies. Her CBC showed a normal white count. Her creatinine was 1.1. I compared this with previous creatinine levels and it is consistent. Her lactic acid is 2.1 I discussed the results with the patient. I recommended admission. Patient has a noted fever with tachycardia, 1 kidney and slightly elevated lactic acid. I did cleared severe sepsis. Repeat lactic acid was ordered. Patient given normal saline bolus. I discussed the case with The patient's primary care physician is Dr. Benítez Differential Diagnosis: My differential includes but is not limited to urinary tract infection, pyelonephritis, bacteremia, sepsis, DKA, hyperglycemia, hypoglycemia, renal infarct - Data Points Laboratory Results: Laboratory Results 08/03/17 22:10 08/03/17 22:10 08/03/17 08/03/17 08/03/17 22:10 22:10 22:10 WBC RBC Hgb Hct MCV MCH MCHC RDW Plt Count MPV Neut % (Auto) Lymph % (Auto) [place] % (Auto) Eos % (Auto) Baso % (Auto) Nucleat RBC Rel Count Absolute Neuts (auto) Absolute Lymphs (auto) Absolute Monos (auto) Absolute Eos (auto) Absolute Basos (auto) Absolute Nucleated RBC Immature Gran % Immature Gran # PT 12.1 SEC SEC (12.0-15.0) INR 0.92 (0.83-1.16) APTT 28.0 SEC SEC (23.0-38.0) VBG Lactic Acid 2.1 mmol/L mmol/L (0.7-2.1) Sodium 134 mEq/L mEq/L (134-144) Potassium 4.1 mEq/L mEq/L (3.5-5.2) Chloride 96 mEq/L L mEq/L (97-110) Carbon Dioxide 23 mEq/l mEq/l (22-31) Anion Gap 15 mEq/L mEq/L (8-16) BUN 10 mg/dL mg/dL (7-23) Creatinine 1.1 mg/dL H mg/dL (0.6-1.0) Estimated GFR 51 Glucose 215 mg/dL H mg/dL (70-100) Calcium 9.2 mg/dL mg/dL (8.5-10.4) Total Bilirubin 0.5 mg/dL mg/dL (0.1-1.4) 08/03/17 22:10 WBC 9.41 10^3/uL 10^3/uL (3.80-9.50) RBC 4.82 10^6/uL 10^6/uL (4.18-5.33) Hgb 14.2 g/dL g/dL (12.6-16.3) Hct 40.4 % % (38.0-47.0) MCV 83.8 fL fL (81.5-99.8) MCH 29.5 pg pg (27.9-34.1) MCHC 35.1 g/dL g/dL (32.4-36.7) RDW 14.6 % % (11.5-15.2) Plt Count 212 10^3/uL 10^3/uL (150-400) MPV 10.0 fL fL (8.7-11.7) Neut % (Auto) 88.5 % H % (39.3-74.2) Lymph % (Auto) 7.1 % L % (15.0-45.0) [place] % (Auto) 2.1 % L % (4.5-13.0) Eos % (Auto) 1.1 % % (0.6-7.6) Baso % (Auto) 0.5 % % (0.3-1.7) Nucleat RBC Rel Count 0.0 % % (0.0-0.2) Absolute Neuts (auto) 8.32 10^3/uL H 10^3/uL (1.70-6.50) Absolute Lymphs (auto) 0.67 10^3/uL L 10^3/uL (1.00-3.00) Absolute Monos (auto) 0.20 10^3/uL L 10^3/uL (0.30-0.80) Absolute Eos (auto) 0.10 10^3/uL 10^3/uL (0.03-0.40) Absolute Basos (auto) 0.05 10^3/uL 10^3/uL (0.02-0.10) Absolute Nucleated RBC 0.00 10^3/uL 10^3/uL (0-0.01) Immature Gran % 0.7 % % (0.0-1.1) Immature Gran # 0.07 10^3/uL 10^3/uL (0.00-0.10) PT INR APTT VBG Lactic Acid Sodium Potassium Chloride Carbon Dioxide Anion Gap BUN Creatinine Estimated GFR Glucose Calcium Total Bilirubin Medications Given: Discontinued Medications Sodium Chloride (Ns) 1,000 mls @ 0 mls/hr IV ONCE ONE PRN Reason: Wide Open Stop: 08/03/17 21:51 Last Admin: 08/03/17 22:14 Dose: 1,000 mls Ceftriaxone Sodium 1 gm/ (Sodium Chloride) 100 mls @ 200 mls/hr IV EDNOW ONE PRN Reason: Protocol Stop: 08/03/17 22:19 Last Admin: 08/03/17 22:15 Dose: 100 mls Departure - Departure Disposition: [facility] Inpatient Acute Clinical Impression: Urinary tract infection Qualifiers: Urinary tract infection type: acute cystitis Hematuria presence: without hematuria Qualified Code(s): N30.00 - Acute cystitis without hematuria Condition: Good Referrals: Jessenia Sage, [facility] PHYSICIAN [Primary Care Provider] - As per Instructions
[2017-08-03] MEDS ORDERED: NS 1,000 ML IV ONE (21:50)
[2017-08-03] MEDS ORDERED: NS 100 ML BAG (MINI-BAG) IV ONE (21:54)
[2017-08-03 22:26] LABS: % IMMATURE GRANULYOCYTES 0.7 % (0.0-1.1); ABSOLUTE IMMATURE GRANULOCYTES 0.07 10^3/uL (0.00-0.10); ADD DIFF? NO; ADD MORPH? NO; ADD SCAN? NO; ATYPICAL LYMPHOCYTE FLAG 0 (0-99); FRAGMENT RBC FLAG 0 (0-99); HEMATOCRIT 40.4 % (38.0-47.0); HEMOGLOBIN 14.2 g/dL (12.6-16.3); LEFT SHIFT FLG 0 (0-99); LIPEMIA HEMOLYSIS FLAG 90 (0-99); MEAN CELL HEMOGLOBIN 29.5 pg (27.9-34.1); MEAN CELL HEMOGLOBIN CONCENTR. 35.1 g/dL (32.4-36.7); MEAN CELL VOLUME 83.8 fL (81.5-99.8); PLATELET CLUMPS FLAG 0 (0-99); PLATELET COUNT 212 10^3/uL (150-400); RED BLOOD CELL COUNT 4.82 10^6/uL (4.18-5.33); RED CELL DISTRIBUTION WIDTH 14.6 % (11.5-15.2)
[2017-08-03 22:36] LABS: INR 0.92 (0.83-1.16); PROTIME(PATIENT) 12.1 SEC (12.0-15.0)
[2017-08-03 22:40] LABS: BILIRUBIN,TOTAL 0.5 mg/dL (0.1-1.4); CALCIUM 9.2 mg/dL (8.5-10.4); CREATININE 1.1 mg/dL (0.6-1.0); POTASSIUM 4.1 mEq/L (3.5-5.2)
[2017-08-03] MEDS ORDERED: NS 2,900 ML IV ONE (22:49)
[2017-08-03] MEDS ORDERED: ACETAMINOPHEN 500 MG TAB ONE (23:07)
[2017-08-03] MEDS ORDERED: HYDROCODONE/APAP 5/325 TAB ONE (23:28)
[2017-08-03] MEDS: HYDROCODONE/APAP 5/325 TAB PO ONE (23:41)
[2017-08-03 23:44] LABS: COLOR YELLOW; LEUKOCYTE ESTERASE,URINE 2+ (NEGATIVE); NITRITE,URINE NEGATIVE (NEGATIVE)
[2017-08-03 23:58] LABS: RBC,URINE 0-1 /hpf (0-3); WBC,URINE 50-182 /hpf (0-3)
[2017-08-04] MEDS: HYDROCODONE/APAP 5/325 TAB PO ONE (00:02)
[2017-08-04] MEDS ORDERED: PROMETHAZINE HCL 25 MG/ML INJ IVP PRN (00:11)
[2017-08-04] MEDS ORDERED: ONDANSETRON 4 MG/2 ML VIAL IVP PRN (00:11)
[2017-08-04] MEDS: HYDROCODONE/APAP 5/325 TAB PO PRN (01:25)
[2017-08-04] MEDS: LORazepam 0.5 MG TAB PO PRN ×2 (01:26→20:48)
[2017-08-04] MEDS: NS 1,000 ML IV SCH ×2 (01:27→16:53)
[2017-08-04] MEDS ORDERED: D50W 25 GM/50 ML VIAL IVP PRN (03:43)
[2017-08-04 04:30] LABS: % IMMATURE GRANULYOCYTES 0.6 % (0.0-1.1); ABSOLUTE IMMATURE GRANULOCYTES 0.05 10^3/uL (0.00-0.10); ADD DIFF? NO; ADD MORPH? NO; ADD SCAN? NO; ATYPICAL LYMPHOCYTE FLAG 10 (0-99); FRAGMENT RBC FLAG 0 (0-99); HEMATOCRIT 34.9 % (38.0-47.0); HEMOGLOBIN 12.3 g/dL (12.6-16.3); LEFT SHIFT FLG 10 (0-99); LIPEMIA HEMOLYSIS FLAG 90 (0-99); MEAN CELL HEMOGLOBIN 30.1 pg (27.9-34.1); MEAN CELL HEMOGLOBIN CONCENTR. 35.2 g/dL (32.4-36.7); MEAN CELL VOLUME 85.3 fL (81.5-99.8); MEAN PLATELET VOLUME 10.1 fL (8.7-11.7); PLATELET CLUMPS FLAG 10 (0-99); PLATELET COUNT 187 10^3/uL (150-400); RED BLOOD CELL COUNT 4.09 10^6/uL (4.18-5.33); RED CELL DISTRIBUTION WIDTH 14.6 % (11.5-15.2)
--- NOTE | 2017-08-04 04:39 | GHP ---
[f rep st] HISTORY AND PHYSICAL DATE OF ADMISSION: 08/03/2017 SOURCE: Patient provides history, appears very reliable. Her EMR was reviewed and case discussed with ED provider before she was transferred from [facility]. CHIEF COMPLAINT: Dysuria and flank pain. HISTORY OF PRESENT ILLNESS: This is a very pleasant 57-year-old female with past medical history significant for antiphospholipid antibody syndrome, diabetes type 2, peripheral vascular disease with history of CVA, depression and anxiety, Farrah thyroiditis, BEKAH, and obesity, who presented to the emergency department with complaints of more severe left flank pain, nausea, vomiting, and fevers and chills. Patient reports that she has been feeling ill and trying to fight a UTI for the past week. Patient is unfortunately down on her luck currently and homeless, living out of her car. She reports that she has had increased number of UTIs since she has become homeless. She called the on-call physician, who prescribed her Macrobid. Patient states that she did not have any UA obtained as she had a phone call in. Today, patient developed significant left flank pain and nausea and vomiting, and she felt she needed to present for further evaluation. The patient also reports a few episodes of diarrhea yesterday that have resolved. No other sick contacts. REVIEW OF SYSTEMS: GENERAL: Positive for subjective fevers and chills. SKIN: No rashes or sores. ENT: Patient denies any rhinorrhea or sore throat. EYES : The patient does wear glasses. No acute changes in vision. CV: The patient denies any chest pain or palpitations. RESPIRATORY: Patient denies any shortness of breath, but she has had a mild cough. GI: Patient with nausea and vomiting as noted above. No hematemesis. Several episodes of diarrhea yesterday, also negative for any evidence of bleeding. : Patient does report blood-tinged urine for the last several days, dysuria, and left flank pain. MUSCULOSKELETAL: Patient reports chronic diffuse joint pain and history of recent myalgias. NEURO: Patient denies any headache. She also has chronic numbness and tingling to her legs. PSYCH: Patient with history of anxiety and depression. She denies any SI or HI. Remainder ROS negative except as noted above. ALLERGIES: To Aspartame, morphine, and sulfa. HOME MEDICATIONS: As per patient's home medication list: Vyvanse 40 mg p.o. q.a.m., metoprolol 25 mg p.o. b.i.d., atorvastatin 20 mg p.o. q.h.s., Xarelto 15 mg p.o. at HS, Effexor 225 mg p.o. daily (she takes a 150 tab and a 75 mg tab ), Synthroid unsubstituted 112 mcg p.o. daily, Lyrica 75 mg p.o. t.i.d., amlodipine 2.5 mg p.o. daily, lisinopril 30 mg p.o. q.a.m., Levemir 25 units in the morning and 15 units in the evening, NovoLog t.i.d. sliding scale, Tylenol p.r.n., multivitamin, vitamin C, iron, and probiotic. PAST MEDICAL HISTORY: Significant for antiphospholipid antibody syndrome with history of CVA, peripheral vascular disease, thrombus requiring an aortobifemoral bypass with resulting injury to the right kidney, depression, anxiety, PTSD, Farrah thyroiditis, BEKAH not on oxygen or CPAP, hypertension, cardiomyopathy, obesity. 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 Renal artery infarct and chronic slow healing wound of the left BKA site, requiring wound VAC care, but now resolved. Tonsillectomy, adenoidectomy , BTL, ovarian cystectomy. FAMILY HISTORY: Significant for CAD and hyperlipidemia in mother, age 68. No other family members with any form of hypercoagulable conditions. SOCIAL HISTORY: Patient is homeless, currently living out of her car. She quit tobacco some time ago. Does not currently smoke. Denies any alcohol and uses occasional marijuana. PHYSICAL EXAMINATION: VITAL SIGNS: Upon arrival to the emergency department, blood pressure 135/68, heart rate 107, respiratory rate 18, O2 sat 94% on room air, with a temperature of 38.1. Vitals currently available: Blood pressure 121/74 with heart rate 93, respiratory rate 19, O2 sat 90% on room air, with a temperature of 37.7. GENERAL: No acute distress, pleasant, obese female who is lying quietly in bed. She does appear fatigued, acutely ill, but nontoxic. HEAD: Normocephalic, atraumatic. EYES: Extraocular muscles are intact. Pupils equal, round, slightly decreased reactivity to light bilaterally but symmetric. No scleral icterus or conjunctival injection. ENT: Mucous membranes appear quite dry. No oropharyngeal erythema or exudates. NECK: Supple. Trachea midline. CV: Regular rate and rhythm. No murmurs, rubs, or gallops appreciated. RESPIRATORY: Unlabored breathing. Lungs are clear to auscultation bilaterally. No wheezes, rales, or rhonchi. ABDOMEN: Obese, soft , nontender to palpation. No rebound, guarding, or masses appreciated. : No suprapubic tenderness to palpation. No CVA tenderness. EXTREMITIES: No cyanosis, clubbing, or edema. Her left stump is dry, is without any open wounds. NEURO: Cranial nerves 2-12 intact symmetric bilaterally. Patient is awake, alert, and oriented x4. She does appear a little bit anxious, but she is very pleasant and cooperative. Thought process, content, and questions appear appropriate. LABORATORY STUDIES: WBC is 9.41, H and H 14.2 and 40.4, MCV of 83.8, platelet count 212, neutrophil percent 88.5, no bands. PT is 12.1, INR 0.92, PTT is 28.0. Lactic acid initial was 2.1, repeat is 1.6. Sodium is 134, potassium is 4.1, chloride 96, CO2 is 23, anion gap 15, BUN 10, creatinine 1.1, GFR 51, glucose 215, calcium 9.2, total bilirubin 0.5. UA is cloudy with pH of 6.0, specific gravity less than 1.005, protein trace, ketones negative, 2+ blood, nitrite negative, 2+ leukocyte esterase, RBCs 0-1, WBCs 50-182, glucose negative. ASSESSMENT AND PLAN: A very pleasant 57-year-old female who presents with complaints of 1-week history of dysuria, left flank pain, now fevers, nausea and vomiting. 1. Urinary tract infection with possible early pyelonephritis. Patient states that she was only able to tolerate 1 dose of the nitrofurantoin before she developed nausea and vomiting. She has been started on Rocephin. Urine cultures have been obtained here. After discussion with the patient, she reports that she did not have a urine drawn as she had a call consult with the PCP's office. Urine culture does still appear abnormal. There is no bacteria noted, but we will plan to monitor and adjust antibiotics as appropriate. 2. Sepsis. Patient qualifies with tachycardia, fever, and elevated lactate upon arrival to the emergency department. These have now resolved and the patient is currently afebrile. She did receive 30 mL/kg bolus in the emergency department before arrival. Blood and urine cultures have been obtained. 3. Acute kidney injury. Baseline renal function appears to be very close. We will give her some IV fluid hydration and repeat a BMP in the morning. 4. Diabetes type 2, uncontrolled. Previous A1c in March of 2017 was 10.9. Plan to continue patient's Levemir and on an insulin sliding scale. 5. Antiphospholipid antibody syndrome. Continue with patient's Xarelto. 6. Hypothyroidism. Resume Synthroid. 7. Benign essential hypertension. Blood pressures at this time are acceptable. We will plan to have patient continue her amlodipine. If her renal function is improved closer to baseline, we will resume her lisinopril and continue metoprolol. 8. Anxiety and depression. Continue patient's Effexor. 9. Obstructive sleep apnea. Not on any treatment. Oxygen supplementation p.r.n. 10. Hyperlipidemia. Resume statin. 11. Fluid, electrolyte, nutrition. IV fluids. Electrolyte replacement p.r.n. ADA diet as tolerated. 12. Prophylaxis: SCDs if tolerated. Patient is already on Xarelto. CODE STATUS: DNR/DNI. DISPOSITION: The patient has been admitted to observation currently, pending further evaluation and improvement in her symptoms. /[id number]/MODL MTDD
[2017-08-04 04:41] LABS: CALCIUM 8.2 mg/dL (8.5-10.4); POTASSIUM 4.2 mEq/L (3.5-5.2)
[2017-08-04] MEDS: LEVOTHYROXINE 112 MCG TAB PO SCH (05:19)
[2017-08-04] MEDS: INSULIN LISPRO 100 UNIT/ML SC SCH ×3 (08:22→17:42)
[2017-08-04] MEDS: INSULIN DETEMIR 30 UNIT SQ SCH ×2 (08:23→09:27)
[2017-08-04] MEDS: Lisdexamfetamine Dimesylate [Vyvanse] 40 MG PO SCH (08:25)
[2017-08-04] MEDS: METOPROLOL TARTRATE 25 MG TAB PO SCH ×2 (08:25→20:50)
[2017-08-04] MEDS: LISINOPRIL 30 MG PO SCH (08:26)
[2017-08-04] MEDS: PREGABALIN 75 MG CAP PO SCH ×3 (08:27→20:49)
[2017-08-04] MEDS ORDERED: LISINOPRIL 40 MG PO SCH (09:00)
[2017-08-04] MEDS ORDERED: LISINOPRIL 30 MG PO SCH (09:00)
[2017-08-04 09:12] LABS: GLUCOSE 338 mg/dL (70-100)
[2017-08-04] MEDS: VENLAFAXINE XR 150 MG CAP PO SCH (09:18)
[2017-08-04] MEDS ORDERED: FERROUS SULFATE 325 MG TAB PO SCH (09:30)
[2017-08-04] MEDS: ACETAMINOPHEN 325 MG TAB PO PRN ×3 (09:34→20:49)
[2017-08-04] MEDS ORDERED: INSULIN DETEMIR 25 UNIT SQ SCH (09:45)
--- NOTE | 2017-08-04 12:32 | ASMTCASEMG ---
Living Arrangements What is your living Answers: Alone arrangement? Who do you live with? Type Of Residence What kind of residence do Answers: House you live in? Discharge Plan Comments Coordination Status Comments Notes: Pt is a 57 y/o female admitted for dysuria and flank pain. Pt is currently homeless. OT have been ordered and waiting recommendations. Anticipates that pt will d/c independent when medically ready. CM available for d/c needs. Date Signed: 08/04/2017 12:31 PM Electronically Signed By:CHIP Sr
[2017-08-04] MEDS ORDERED: FLU VACC QS 2017-18 (3YR+)/PF 0.5 ML SYR (FLUARIX QUAD) IM ONE (17:06)
--- NOTE | 2017-08-04 18:20 | HOSPPROG ---
Hospitalist Progress Note Assessment/Plan: Evaluated patient, she continues to experience significant left flank pain, is tender on exam, continues to experience generalized weakness and malaise -will upgraded to inpatient admission status given ongoing symptomatic pyelonephritis and ongoing workup with urine culture currently pending, awaiting results for speciation and sensitivities given recent fail of oral antibiotics including Macrobid -continue on IV ceftriaxone, will adjust based on speciation and sensitivity -reviewed outside records including 04/23/2017 urine culture demonstrating pansensitive E coli -repeat CBC and metabolic profile in a.m. -chronic diabetes mellitus with acute hyperglycemia most likely provoked by infection, continue on home dosage of Levemir with insulin sliding scale Objective: Vital Signs Temp Pulse Resp BP Pulse Ox 37 C 76 16 148/87 H 90 L 08/04/17 16:00 08/04/17 16:00 08/04/17 16:00 08/04/17 16:00 08/04/17 16:00 Laboratory Results 08/04/17 04:09 08/04/17 08:20 08/03/17 08/04/17 08/05/17 05:59 05:59 05:59 Intake Total 3350 1000 Output Total 575 Balance 3350 425 PT 12.1 SEC (12.0-15.0) 08/03/17 22:10 INR 0.92 (0.83-1.16) 08/03/17 22:10 ICD10 Worksheet Patient Problems: Problems Problem Status Onset Abscess Acute Methicillin resistant Staphylococcus aureus infection Acute Orthostatic hypotension Acute Chest pain Acute Urinary tract infection Acute
--- NOTE | 2017-08-04 18:57 | PDMN ---
Medical Necessity Medical necessity: C/M review: est. > 2 MN LOS for eval and TX of acute and persistent symptomatic pyelonephritis, left flank pain, generalized weakness, malaise, acute hyperglycemia requiring pending urine culture results ongoing workup, IV Ceftriaxone, IV fluids, comorbid recent failure of oral antibiotics including Macrobid, diabetes mellitus treated with insulin, 04/23/2017 urine culture demonstrating parasensitive E. coli per 08/04/2017 Hospitalist progress note.
[2017-08-04] MEDS ORDERED: INSULIN DETEMIR 15 UNIT SQ SCH (21:00)
[2017-08-04] MEDS ORDERED: ATORVASTATIN CALCIUM 20 MG TAB PO SCH (21:00)
[2017-08-04] MEDS ORDERED: RIVAROXABAN 15 MG TAB PO SCH (21:00)
[2017-08-04] MEDS ORDERED: INSULIN GLARGINE 100 UNITS/ML SYRINGE SC SCH (23:15)
[2017-08-05] MEDS: NS 1,000 ML IV SCH (01:40)
[2017-08-05 05:03] LABS: % IMMATURE GRANULYOCYTES 0.9 % (0.0-1.1); ABSOLUTE IMMATURE GRANULOCYTES 0.06 10^3/uL (0.00-0.10); ADD DIFF? NO; ADD MORPH? NO; ADD SCAN? NO; ATYPICAL LYMPHOCYTE FLAG 0 (0-99); FRAGMENT RBC FLAG 0 (0-99); HEMATOCRIT 38.9 % (38.0-47.0); HEMOGLOBIN 13.6 g/dL (12.6-16.3); LEFT SHIFT FLG 0 (0-99); LIPEMIA HEMOLYSIS FLAG 90 (0-99); MEAN CELL VOLUME 85.7 fL (81.5-99.8); PLATELET CLUMPS FLAG 0 (0-99); PLATELET COUNT 201 10^3/uL (150-400); RED BLOOD CELL COUNT 4.54 10^6/uL (4.18-5.33); RED CELL DISTRIBUTION WIDTH 14.6 % (11.5-15.2)
[2017-08-05 05:10] LABS: ANION GAP 11 mEq/L (8-16); CALCIUM 8.9 mg/dL (8.5-10.4); CARBON DIOXIDE 23 mEq/l (22-31); CHLORIDE 105 mEq/L (97-110); CREATININE 1.1 mg/dL (0.6-1.0); GLOMERULAR FILTRATION RATE 51; GLUCOSE 216 mg/dL (70-100); POTASSIUM 4.5 mEq/L (3.5-5.2); SODIUM 139 mEq/L (134-144)
[2017-08-05] MEDS: LEVOTHYROXINE 112 MCG TAB PO SCH (06:00)
[2017-08-05 07:30] VITALS: BP 153/90; PULSE 81; RESP 16; TEMP 99.5; O2SAT 92
[2017-08-05] MEDS: HYDROCODONE/APAP 5/325 TAB PO PRN (08:57)
[2017-08-05] MEDS: PREGABALIN 75 MG CAP PO SCH ×2 (08:58→17:01)
[2017-08-05] MEDS: METOPROLOL TARTRATE 25 MG TAB PO SCH (08:59)
[2017-08-05] MEDS: VENLAFAXINE XR 150 MG CAP PO SCH (08:59)
[2017-08-05] MEDS ORDERED: VENLAFAXINE XR 75 MG CAP PO SCH (09:00)
[2017-08-05] MEDS ORDERED: ASCORBIC ACID 500 MG TAB PO SCH (09:00)
[2017-08-05] MEDS ORDERED: INSULIN GLARGINE 100 UNITS/ML SYRINGE SC SCH (09:00)
[2017-08-05] MEDS ORDERED: FERROUS SULFATE 140 MG TAB.ER PO SCH (09:00)
[2017-08-05] MEDS: Lisdexamfetamine Dimesylate [Vyvanse] 40 MG PO SCH (09:18)
[2017-08-05] MEDS: LISINOPRIL 30 MG PO SCH (10:16)
[2017-08-05] MEDS: INSULIN LISPRO 100 UNIT/ML SC SCH ×2 (10:16→15:54)
--- NOTE | 2017-08-05 19:55 | PDDCSUM ---
Discharge Summary Discharge Summary: DISCHARGE SUMMARY FOLLOW-UP ITEMS: Outpatient follow-up with primary care provider DATE OF ADMISSION: 08/03/2017 DATE OF DISCHARGE: 08/05/2017 DISCHARGE DIAGNOSES: 1. Acute pyelonephritis 2. Diabetes mellitus with hyperglycemia 3. Chronic kidney disease stage 3 4. Chronic antiphospholipid syndrome 5. Acute metabolic acidosis CONSULTATIONS: None PROCEDURES / IMAGING: Renal ultrasound demonstrating no perinephric abscess, bladder inflammation CHIEF COMPLAINT: Acute flank pain SUBJECTIVE: Patient continues to have some right flank pain at discharge, controlled with [place] PHYSICAL EXAM ON DISCHARGE: Systolic blood pressure is 130, heart rate 80, afebrile overnight, satting well on room air, obese, tenderness over the right flank, no tenderness over the left flank, bowel sounds are present, abdomen is soft, she has some hypopigmentation of her skin on her arms and face LABS ON DISCHARGE: Creatinine 1.1, white blood cell count 6300 HOSPITAL COURSE BY PROBLEM: Patient presented with acute pyelonephritis as evidenced by fever, tachycardia, flank pain, positive urinalysis, with recently partially treated UTI with Macrobid, failed oral antibiotics in the outpatient setting with evolution and worsening of her symptoms, requiring inpatient hospitalization for IV antibiotics and stabilization. The patient was ruled out for sepsis, not experiencing hypotension or autonomic dysregulation. She did experience acute metabolic acidosis secondary to lactic acid elevated on presentation, secondary to hypovolemia, treated with IV fluids. She had a renal ultrasound performed given her persistence of flank pain symptoms, demonstrated no evidence of perinephric abscess. Her urine culture did not yield diagnostic result, secondary to prior oral antibiotics before this hospitalization. She required extended hospitalization secondary to ongoing symptoms on 08/04, consisting of flank pain, general malaise. On 08/05, with a normal white blood cell count, no fever, improving left-sided flank pain, the patient was deemed safe for discharge, and she was continued on cefpodoxime 200 mg twice daily for 8 subsequent days, to complete a total 10 day course of antibiotics. She was also prescribed as needed [place] for symptomatic control of her left flank pain which had evolved prior to discharge. Her creatinine remained within her baseline range, 1.0-1.1. DISCHARGE MEDICATIONS: Please see official discharge medication reconciliation sheet in chart , cefpodoxime 200 mg twice daily for a subsequent days, as needed [place]. DISCHARGE INSTRUCTIONS: Please follow up with primary care provider after discharge. TIME SPENT: Greater than 30 minutes were spent on direct patient care, as well as discharge planning and preparation.
== END 2017-08-05 17:20 | disposition home or self-care (01) | DRG 690 ==
LOC: CED 21:18 → CEDHOLD 22:51 → F3N 08-04 00:50 → OBSVTOIN 08-04 18:21
PROVIDERS: ADMIT Family Medicine; ATTEND Internal Medicine
DX: N10 Acute pyelonephritis (principal); E11.65 Type 2 diabetes mellitus with hyperglycemia; E11.22 Type 2 diabetes mellitus with diabetic chronic kidney disease; N17.9 Acute kidney failure, unspecified; N18.3 Chronic kidney disease, stage 3 (moderate); D68.61 Antiphospholipid syndrome; E87.2 Acidosis; I42.9 Cardiomyopathy, unspecified; I73.9 Peripheral vascular disease, unspecified; E06.3 Autoimmune thyroiditis; F32.9 Major depressive disorder, single episode, unspecified; F41.9 Anxiety disorder, unspecified; F43.10 Post-traumatic stress disorder, unspecified; E66.9 Obesity, unspecified; K21.9 Gastro-esophageal reflux disease without esophagitis; E78.5 Hyperlipidemia, unspecified; G47.33 Obstructive sleep apnea (adult) (pediatric); I12.9 Hypertensive chronic kidney disease with stage 1 through stage 4 chronic kidney disease, or unspecified chronic kidney disease; Z86.73 Personal history of transient ischemic attack (TIA), and cerebral infarction without residual deficits; Z66 Do not resuscitate; Z59.0 Homelessness; Z79.4 Long term (current) use of insulin; Z79.01 Long term (current) use of anticoagulants
CPT/HCPCS: 80048-PO; 81003-PO; 81015-PO; 82247-PO; 82947-QW; 83605-PO; 85025-PO; 85610-PO; 85730-PO; 96365; 97165-GO; G0008; G8987-GO-CI; G8988-GO-CI; J0696; J1815

== ENCOUNTER 2017-08-29 15:21 | Emergency (ER) | payer OTHER, MEDICAID ==
[2017-08-29 15:50] VITALS: BP 123/74; PULSE 73; RESP 16; TEMP 99; O2SAT 94
[2017-08-29 16:09] LABS: COLOR YELLOW; LEUKOCYTE ESTERASE,URINE TRACE (NEGATIVE); NITRITE,URINE NEGATIVE (NEGATIVE); PH,URINE 5.5 (5.0-7.5)
[2017-08-29 16:21] LABS: RBC,URINE 15-25 /hpf (0-3); WBC,URINE 25-50 /hpf (0-3)
[2017-08-29 16:22] LABS: BACTERIA 1+ /hpf (NONE SEEN)
--- NOTE | 2017-08-29 16:32 | EDPHY ---
HPI/HX/ROS/PE/MDM Narrative: CHIEF COMPLAINT: "I think I have a UTI " HPI: The patient is a 57-year-old female with multiple medical problems including insulin-dependent diabetes and hospitalization approximately 3 weeks ago for pyelonephritis. The patient states she has been feeling well until yesterday when she redeveloped symptoms of urinary frequency, urgency and burning. She has some chronic left flank pain which is slightly worse. She denies fever or vomiting. She states this feels similar to her prior UTI and she is trying to catch it before it gets worse. REVIEW OF SYSTEMS: Aside from elements discussed in the HPI, a comprehensive 10-point review of systems was reviewed and is negative. PMH: Quite extensive, please see chart for further details but includes insulin -dependent diabetes, history of pyelonephritis, history of [id number] amputation SOCIAL HISTORY: Denies alcohol or drug abuse. PHYSICAL EXAM: General:Patient is alert, in no acute distress. ENT:Eyes are normal to inspection. ENT inspection normal. Neck: Normal inspection. Full range of motion. Respiratory:No respiratory distress. Breath sounds normal bilaterally. Cardiovascular: Regular rate and rhythm. Strong peripheral pulses. Normal cap refill. Abdomen:The abdomen is nontender to palpation. There are no peritoneal signs. There are normal bowel sounds. Back: Normal to inspection. No tenderness to palpation. Skin: Normal color. No rash. Warm and dry. Extremities: BKA amputation noted. Neuro: Oriented x3. Normal motor function. Normal sensory function. MDM: This patient presents with signs and symptoms of urinary tract infection complicated by insulin-dependent diabetes and history of recent discharge from the hospital for pyelonephritis. I reviewed her chart and her prior urine culture did not grow out any organisms, but it was noted that she had been on oral antibiotics prior to that test being sent. Today, the patient has a positive urinalysis. Given some uncertainty regarding etiology of prior infection, I will send this for culture. I discussed antibiotic options with the patient who is comfortable with the plan for empiric treatment with Keflex as Macrobid made her vomit per her report. The patient has no fever or new flank pain currently and I do not think that blood work is currently indicated. We discussed strict return precautions. - Data Points Laboratory Results: 08/29/17 15:45 Urine Color YELLOW Urine Appearance HAZY Urine pH 5.5 (5.0-7.5) Ur Specific [place] 1.010 (1.002-1.030) Urine Protein NEGATIVE (NEGATIVE) Urine Ketones NEGATIVE (NEGATIVE) Urine Blood 1+ H (NEGATIVE) Urine Nitrate NEGATIVE (NEGATIVE) Urine Bilirubin NEGATIVE (NEGATIVE) Urine Urobilinogen 0.2 EU EU (0.2-1.0) Ur Leukocyte Esterase TRACE H (NEGATIVE) Urine RBC 15-25 /hpf H /hpf (0-3) Urine WBC 25-50 /hpf H /hpf (0-3) Ur Epithelial Cells NONE SEEN /lpf /lpf (NONE-1+) Urine Bacteria 1+ /hpf H /hpf (NONE SEEN) Urine Glucose 3+ H (NEGATIVE) General Time Seen by Provider: 08/29/17 15:55 Initial Vital Signs: Initial Vital Signs Temperature (C) 37.2 C 08/29/17 15:46 Heart Rate 73 08/29/17 15:46 Respiratory Rate 16 08/29/17 15:46 Blood Pressure 123/74 H 08/29/17 15:46 O2 Sat (%) 94 08/29/17 15:46 O2 Delivery Mode Room Air Allergies/Adverse Reactions: aspartame Allergy (Verified 08/29/17 15:40) morphine Allergy (Verified 08/29/17 15:40) Hives Sulfa (Sulfonamide Antibiotics) Allergy (Verified 08/29/17 15:40) Hives contrast Allergy (Uncoded 08/29/17 15:40) Itching Home Medications: Medication Instructions Recorded Insulin Aspart [novoLOG] 2 - 10 unit SC TIDMEAL 02/05/17 Insulin Detemir [Levemir] 25 unit SQ DAILY 02/05/17 Rivaroxaban [Xarelto 15mg (*)] 15 mg PO HS 02/05/17 Insulin Detemir [Levemir] 15 unit SQ HS 02/06/17 Lisdexamfetamine Dimesylate 40 mg PO DAILY 02/06/17 [Vyvanse] Metoprolol Tartrate [Lopressor 25 25 mg PO BID 02/06/17 mg (*)] Pregabalin [Lyrica 75mg (*)] 150 mg PO TID 02/06/17 Levothyroxine [Synthroid 112 mcg 112 mcg PO DAILY AT 6AM #30 tab 02/09/17 (*)] Acetaminophen [Tylenol ES 500 mg 1,000 mg PO Q8 PRN 03/15/17 (*)] Atorvastatin Calcium [Lipitor 20 20 mg PO HS 03/15/17 mg (*)] Herbals/Supplements -Info Only 1 ea PO DAILY 03/15/17 Multivitamins [Multivitamin (*)] 1 each PO DAILY 03/15/17 Ascorbic Acid [Vitamin C 500 mg 500 mg PO DAILY 08/04/17 (*)] Ferrous Sulfate [Slow Fe 140 MG 140 mg PO DAILY 08/04/17 (*)] Lisinopril [Zestril 30 mg] 30 mg PO DAILY 08/04/17 Venlafaxine Xr [Effexor Xr 75MG 225 mg PO DAILY 08/04/17 (*)] amLODIPine BESYLATE [Norvasc 2.5 2.5 mg PO DAILY 08/04/17 mg (*)] Cephalexin [Keflex] 500 mg PO TID #21 cap 08/29/17 TOPIRAMATE 08/29/17 Departure - Departure Disposition: Home, Routine, Self-Care Clinical Impression: Urinary tract infection Condition: Good Instructions: Cephalexin (By mouth), Urinary Tract Infection in Women (DC) Additional Instructions: Follow-up with your primary doctor within 72 hours. Return to the Emergency Department for fever, worsening pain, flank pain or failure to improve within 72 hours. It is possible that the bacteria causing your infection is resistant to the antibiotic we've placed you on. We have sent a urine for culture, if this comes back with a resistant bacteria, we will call you at the number you provided to us. Referrals: Jessenia Sage, RESIDENT PHYSICIAN IN RADIOLOGY [Primary Care Provider] - As per Instructions Prescriptions: Cephalexin [Keflex] 500 mg PO TID #21 cap
== END 2017-08-29 16:38 | disposition home or self-care (01) ==
LOC: CED 15:21
DX: N39.0 Urinary tract infection, site not specified (principal); B96.89 Other specified bacterial agents as the cause of diseases classified elsewhere; E11.9 Type 2 diabetes mellitus without complications; Z79.4 Long term (current) use of insulin
CPT/HCPCS: 81003-PO; 81015-PO

== ENCOUNTER 2019-01-08 12:12 | Inpatient (IN) | payer OTHER ==
--- NOTE | 2019-01-08 12:31 | EDPHY ---
HPI/HX/ROS/PE/MDM Narrative: CHIEF COMPLAINT: Hyperglycemia, shortness of breath - DKA HISTORY OF PRESENT ILLNESS: The patient is an anticoagulated (Xarelto) 58 y/o female with a complex medical history arriving via EMS for DKA with hyperglycemia exceeding 700 and shortness of breath. The patient has a history of insulin-dependant diabetes, hypertension, lupus, Farrah's disease, cardiomyopathy, anemia, stroke, nephrectomy, below the knee amputation, and depression. She reports she has been taking her insulin as directed and that she felt well last night. This morning, she awoke in DKA with shortness of breath and hyperglycemia (above 500 per EMS). She reports pain in her left thigh. She has associated vomiting. She previously had a blood clot in the right leg. No fever, chills, chest pain, palpitations, diarrhea, urinary complaints, headache, lightheadedness. REVIEW OF SYSTEMS: A comprehensive 10 system review of systems is otherwise negative aside from elements mentioned in the history of present illness and medical decision making PAST MEDICAL HISTORY: Insulin-dependant diabetes, hypertension, lupus, Farrah's disease, cardiomyopathy, anemia, stroke, nephrectomy, below the knee amputation, depression SOCIAL HISTORY: Lives in [place], medicare patient, former smoker VITAL SIGNS: Reviewed by me GENERAL: Very obese, in pain with eyes closed HEENT: Atraumatic. Eyes: No icterus, no injection. Mouth: Remarkably dry mucous membranes. Ketones on breath. No erythema or lesions. Neck: supple with no adenopathy. LUNGS: Kussmaul breathing. Clear to auscultation bilaterally, no wheezes, rhonchi or rales. CARDIAC: Tachycardic regular rhythm, no rubs, murmurs or gallops. ABDOMEN: Soft, nontender, nondistended, bowel sounds normal. BACK: No CVA tenderness. EXTREMITIES: Below the knee amputation of the left leg. Good femoral and popliteal pulses on the left leg. Left knee and lower leg are mottled and cold. No trauma. No edema. Normal range of motion at the hip and knee. Right lower extremity warm to the touch. NEURO: Alert and oriented, grossly nonfocal. SKIN: Warm and dry, no rash. PSYCHIATRIC: Normal mentation, no agitation. ED Course: Study: Ultrasound of the right leg Indication: Right leg pain, leg cool to touch and mottled Results: Ultrasound of the right leg was obtained. The results of the study are : Negative for blood clot The study was read by the radiologist, Dr. Ruff. I viewed the images myself on the PACS system. The patient presents in DKA with a glucose in excess of 700 POC. She has Kussmaul breathing and is complaining of pain in the right leg. The right leg has a BKA, good femoral and popliteal pulses, and his mottled and cold. DKA protocol initiated. Plan for DKA labs and ultrasound of the left leg to evaluate for DVT. I am also quite concerned about the possibility of arterial thrombus, at this point, we are awaiting the patient's creatinine. Patient's initial labs: Sodium 128, potassium 6.3, chloride 88, bicarb less than 5, BUN 25, creatinine 2.0, glucose 973, beta hydroxybutyric acid 10.5. DKA protocol was initiated immediately on the patient's arrival. 13:15 - Ultrasound is negative for DVT. Patient's creatinine is 2.0 General surgery here to evaluate for possible ischemic limb. Doppler ultrasound ordered. Case discussed with hospitalist, patient will be admitted to Dr. Robertson. On re-evaluation she continues to be quite ill-appearing, and tachypneic. She is complaining of significant pain in her left leg. 13:30 - Dr. Sherif Echevarria, general surgery, is in the ED examining the patient. By the history he obtain from the patient, she had arterial thrombus which resulted in her BKA. Arterial peripheral duplex ultrasound ordered and reveals an occlusion from thrombus involving the left common femoral artery with some collateral recanalization. Suspect that limb ischemia is the cause of the patient's DKA. Please see Dr. Echevarria's consultation and note regarding timing and plan of the patient's operative intervention. In the meantime, the patient continued to receive pain meds as needed, IV fluids, did receive 1 amp of bicarb for a pH of 6.9, and continues to have supportive care. Critical care time spent by me, Dr. Paris exclusively with this patient was 60 minutes, exclusive of PA time and exclusive of procedures. The organ system at risk was limb ischemia, cardiovascular, endocrine, and I gave IV fluids, insulin, bicarbonate, arranged ultrasound and arranged urgent surgical consultation to prevent worsening of the patients condition. Critical care time included obtaining history, performing a physical exam, bedside monitoring of interventions, collecting and interpreting tests and discussion with consultants but not including time spent performing procedures. MDM: Differential diagnoses for the patient's symptom complex was considered including but not limited to DKA with inciting event of acute limb ischemia, acute DVT, occult infection, deep space infection, necrotizing fasciitis, myositis. - Data Points Imaging Results: Imaging Impressions Extremity Venous Study 01/08/19 12:34 Impression: No deep venous thrombosis in the left lower extremity. Previous BKA. Findings discussed with Jamila Paris MD at 13:13 hour, 01/08/2019. Arterial Peripheral Duplex Impression: 1. Occlusion probably from thrombus involving the left common femoral artery with collateral recanalization of the mid to distal SFA. 2. Profundus femoral artery on the left cannot be delineated. 3. Normal flow pattern right lower extremity. Findings discussed with Sherif Echevarria MD at 14:51 hour, 01/08/2019. Dictated By: Frank Ruff MD Imaging: Discussed imaging studies w/ scallop raker Radiologist Laboratory Results: Laboratory Results 01/08/19 12:20 01/08/19 12:20 01/08/19 01/08/19 01/08/19 12:34 12:30 12:30 WBC RBC Hgb POC Hgb Hct POC Hct MCV MCH MCHC RDW Plt Count MPV Neut % (Auto) Lymph % (Auto) [place] % (Auto) Eos % (Auto) Baso % (Auto) Nucleat RBC Rel Count Absolute Neuts (auto) Absolute Lymphs (auto) Absolute Monos (auto) Absolute Eos (auto) Absolute Basos (auto) Absolute Nucleated RBC Immature Gran % Seg Neutrophils % Band Neutrophils % Lymphocytes % Monocytes % Eosinophils % Basophils % Metamyelocytes % Myelocytes % Promyelocytes % Blast Cells % Immature Gran # Absolute Seg Neuts Absolute Band Neuts Absolute Lymphocytes Absolute Monocytes Absolute Eosinophils Absolute Basophils Absolute Metamyelocyte Absolute Myelocytes Absolute Promyelocytes Absolute Plasma Cells Nucleated RBCs Absolute Blast Cells Plasma Cells % Platelet Estimate Polychromasia Oval Macrocytes PT 17.1 SEC H SEC (12.0-15.0) INR 1.46 H (0.83-1.16) Puncture Site Patient Temperature VBG pH VBG HCO3 VBG Total CO2 VBG O2 Saturation VBG Base Excess Mixed VBG pCO2 Mixed VBG pO2 POC Sodium Sodium POC Potassium Potassium POC Chloride Chloride Carbon Dioxide POC Total CO2 Anion Gap POC BUN BUN Creatinine POC Creatinine Estimated GFR Glucose POC Glucose Calcium Magnesium Total Bilirubin Conjugated Bilirubin Unconjugated Bilirubin AST ALT Alkaline Phosphatase Creatine Kinase 132 IU/L IU/L (0-156) POC Troponin I 0.01 ng/mL ng/mL (0.00-0.08) Total Protein Albumin Beta-Hydroxybutyrate 01/08/19 01/08/19 01/08/19 12:30 12:22 12:20 WBC RBC Hgb POC Hgb 16.3 gm/dL gm/dL (12.6-16.3) Hct POC Hct 48 % H % (38-47) MCV MCH MCHC RDW Plt Count MPV Neut % (Auto) Lymph % (Auto) [place] % (Auto) Eos % (Auto) Baso % (Auto) Nucleat RBC Rel Count Absolute Neuts (auto) Absolute Lymphs (auto) Absolute Monos (auto) Absolute Eos (auto) Absolute Basos (auto) Absolute Nucleated RBC Immature Gran % Seg Neutrophils % Band Neutrophils % Lymphocytes % Monocytes % Eosinophils % Basophils % Metamyelocytes % Myelocytes % Promyelocytes % Blast Cells % Immature Gran # Absolute Seg Neuts Absolute Band Neuts Absolute Lymphocytes Absolute Monocytes Absolute Eosinophils Absolute Basophils Absolute Metamyelocyte Absolute Myelocytes Absolute Promyelocytes Absolute Plasma Cells Nucleated RBCs Absolute Blast Cells Plasma Cells % Platelet Estimate Polychromasia Oval Macrocytes PT INR Puncture Site Not Reported Patient Temperature 37.0 DEGREES DEGREES VBG pH 6.93 L (7.31-7.42) VBG HCO3 2 mEQ/L L mEQ/L (22-26) VBG Total CO2 3 mEq/L L mEq/L (21-27) VBG O2 Saturation 97 % H % (65-75) VBG Base Excess -30.7 mEq/L L mEq/L (-2.5-2.5) Mixed VBG pCO2 11 mmHg L mmHg (40-44) Mixed VBG pO2 151 mmHG H mmHG (35-40) POC Sodium 124 mEq/L L mEq/L (135-145) Sodium 128 mEq/L L mEq/L (135-145) POC Potassium 5.8 mEq/L H mEq/L (3.3-5.0) Potassium 6.3 mEq/L H* mEq/L (3.5-5.2) POC Chloride 95 mEq/L L mEq/L (97-110) Chloride 88 mEq/L L mEq/L (97-110) Carbon Dioxide < 5 mEq/l L* mEq/l (22-31) POC Total CO2 7 mEq/L L* mEq/L (22-31) Anion Gap TNP POC BUN 27 mg/dL H mg/dL (7-23) BUN 25 mg/dL H mg/dL (7-23) Creatinine 2.0 mg/dL H mg/dL (0.6-1.0) POC Creatinine 1.9 mg/dL H mg/dL (0.6-1.0) Estimated GFR 26 Glucose 973 mg/dL H* mg/dL (70-100) POC Glucose > 700 mg/dL H* mg/dL (70-100) Calcium 9.2 mg/dL mg/dL (8.5-10.4) Magnesium 2.2 mg/dL mg/dL (1.6-2.3) Total Bilirubin 0.4 mg/dL mg/dL (0.1-1.4) Conjugated Bilirubin 0.4 mg/dL mg/dL (0.0-0.5) Unconjugated Bilirubin 0.0 mg/dL mg/dL (0.0-1.1) AST 30 IU/L IU/L (14-46) ALT 26 IU/L IU/L (9-52) Alkaline Phosphatase 226 IU/L H IU/L (38-126) Creatine Kinase POC Troponin I Total Protein 7.3 g/dL g/dL (6.3-8.2) Albumin 4.6 g/dL g/dL (3.5-5.0) Beta-Hydroxybutyrate 10.50 mmol/L H mmol/L (0.02-0.27) 01/08/19 12:20 WBC 30.32 10^3/uL H 10^3/uL (3.80-9.50) RBC 4.81 10^6/uL 10^6/uL (4.18-5.33) Hgb 14.0 g/dL g/dL (12.6-16.3) POC Hgb Hct 46.3 % % (38.0-47.0) POC Hct MCV 96.3 fL fL (81.5-99.8) MCH 29.1 pg pg (27.9-34.1) MCHC 30.2 g/dL L g/dL (32.4-36.7) RDW 14.0 % % (11.5-15.2) Plt Count 338 10^3/uL 10^3/uL (150-400) MPV 11.9 fL H fL (8.7-11.7) Neut % (Auto) Not Reported Lymph % (Auto) Not Reported [place] % (Auto) Not Reported Eos % (Auto) Not Reported Baso % (Auto) Not Reported Nucleat RBC Rel Count Not Reported Absolute Neuts (auto) Not Reported Absolute Lymphs (auto) Not Reported Absolute Monos (auto) Not Reported Absolute Eos (auto) Not Reported Absolute Basos (auto) Not Reported Absolute Nucleated RBC Not Reported Immature Gran % Not Reported Seg Neutrophils % 87.0 % % Band Neutrophils % 4.0 % % Lymphocytes % 6.0 % % Monocytes % 3.0 % % Eosinophils % 0.0 % % Basophils % 0.0 % % Metamyelocytes % 0.0 % % Myelocytes % 0.0 % % Promyelocytes % 0.0 % % Blast Cells % 0.0 % % Immature Gran # Not Reported Absolute Seg Neuts 26.38 10^3/uL H 10^3/uL (1.70-6.50) Absolute Band Neuts 1.21 10^3/uL H 10^3/uL (0.00-0.70) Absolute Lymphocytes 1.82 10^3/uL 10^3/uL (1.00-3.00) Absolute Monocytes 0.91 10^3/uL H 10^3/uL (0.30-0.80) Absolute Eosinophils 0.00 10^3/uL L 10^3/uL (0.03-0.40) Absolute Basophils 0.00 10^3/uL L 10^3/uL (0.02-0.10) Absolute Metamyelocyte 0.00 10^3/mL 10^3/mL (0.00-0.00) Absolute Myelocytes 0.00 10^3/mL 10^3/mL (0.00-0.00) Absolute Promyelocytes 0.00 10^3/uL 10^3/uL (0.00-0.00) Absolute Plasma Cells 0.00 10^3/uL 10^3/uL (0.00-0.00) Nucleated RBCs 0 /100 WBC /100 WBC (0-0) Absolute Blast Cells 0.00 10^3/uL 10^3/uL (0.00-0.00) Plasma Cells % 0.0 % % Platelet Estimate ADEQUATE (ADEQ) Polychromasia 1+ H Oval Macrocytes 1+ H PT INR Puncture Site Patient Temperature VBG pH VBG HCO3 VBG Total CO2 VBG O2 Saturation VBG Base Excess Mixed VBG pCO2 Mixed VBG pO2 POC Sodium Sodium POC Potassium Potassium POC Chloride Chloride Carbon Dioxide POC Total CO2 Anion Gap POC BUN BUN Creatinine POC Creatinine Estimated GFR Glucose POC Glucose Calcium Magnesium Total Bilirubin Conjugated Bilirubin Unconjugated Bilirubin AST ALT Alkaline Phosphatase Creatine Kinase POC Troponin I Total Protein Albumin Beta-Hydroxybutyrate Medications Given: Discontinued Medications Hydromorphone HCl (Dilaudid) 1 mg IVP EDNOW ONE Stop: 01/08/19 12:40 Last Admin: 01/08/19 12:42 Dose: 1 mg Sodium Chloride (Ns) 1,000 mls @ 1,000 mls/hr IV EDNOW ONE PRN Reason: Protocol Stop: 01/08/19 13:31 Last Admin: 01/08/19 12:20 Dose: 1,000 mls Insulin Human Regular 100 unit / Miscellaneous Medication 1 ea/ Sodium Chloride 101 mls @ 0 mls/hr IV EDNOW ONE; Per Protocol PRN Reason: Protocol Stop: 01/08/19 12:33 Last Admin: 01/08/19 13:00 Dose: 101 mls Sodium Bicarbonate (Sodium Bicarbonate) 50 meq IVP EDNOW ONE Stop: 01/08/19 13:04 Last Admin: 01/08/19 13:17 Dose: 50 meq Point of Care Test Results: Chemistry 01/08/19 01/08/19 12:34 12:22 POC Sodium 124 mEq/L L mEq/L (135-145) POC Potassium 5.8 mEq/L H mEq/L (3.3-5.0) POC Chloride 95 mEq/L L mEq/L (97-110) POC Total CO2 7 mEq/L L* mEq/L (22-31) POC BUN 27 mg/dL H mg/dL (7-23) POC Creatinine 1.9 mg/dL H mg/dL (0.6-1.0) POC Glucose > 700 mg/dL H* mg/dL (70-100) POC Troponin I 0.01 ng/mL ng/mL (0.00-0.08) ISTAT H&H 01/08/19 12:22 POC Hgb 16.3 gm/dL gm/dL (12.6-16.3) POC Hct 48 % H % (38-47) General Initial Vital Signs: Initial Vital Signs Temperature (C) 35.7 C L 01/08/19 12:12 Heart Rate 118 H 01/08/19 12:12 Respiratory Rate 30 H 01/08/19 12:12 Blood Pressure 150/101 H 01/08/19 12:12 O2 Sat (%) 100 01/08/19 12:12 O2 Delivery Mode Room Air Allergies/Adverse Reactions: aspartame Allergy (Verified 01/08/19 12:24) morphine Allergy (Verified 01/08/19 12:24) Hives Sulfa (Sulfonamide Antibiotics) Allergy (Verified 01/08/19 12:24) Hives contrast Allergy (Uncoded 01/08/19 12:24) Itching Home Medications: Medication Instructions Recorded Insulin Aspart [novoLOG] 2 - 10 unit SC TIDMEAL 02/05/17 Insulin Detemir [Levemir] 27 unit SQ DAILY 02/05/17 Rivaroxaban [Xarelto 15mg (*)] 15 mg PO HS 02/05/17 Insulin Detemir [Levemir] 15 unit SQ HS 02/06/17 Metoprolol Tartrate [Lopressor 25 25 mg PO BID 02/06/17 mg (*)] Pregabalin [Lyrica 75mg (*)] 150 mg PO TID 02/06/17 Levothyroxine [Synthroid 112 mcg 112 mcg PO DAILY AT 6AM #30 tab 02/09/17 (*)] Acetaminophen [Tylenol ES 500 mg 1,000 mg PO Q8 PRN 03/15/17 (*)] Atorvastatin Calcium [Lipitor 20 20 mg PO HS 03/15/17 mg (*)] Herbals/Supplements -Info Only 1 ea PO DAILY 03/15/17 Multivitamins [Multivitamin (*)] 1 each PO DAILY 03/15/17 Lisinopril [Zestril 30 mg] 30 mg PO DAILY 08/04/17 amLODIPine BESYLATE [Norvasc 2.5 2.5 mg PO DAILY 08/04/17 mg (*)] Lisdexamfetamine Dimesylate 40 mg PO DAILY 01/08/19 [Vyvanse] Tasimelteon [Hetlioz] 20 mg PO DAILY 01/08/19 Venlafaxine Xr [Effexor Xr] 300 mg PO DAILY 01/09/19 Departure - Departure Disposition: [facility] Inpatient Acute Clinical Impression: Acute ischemic limb DKA (diabetic ketoacidosis) Qualifiers: Diabetes mellitus type: type 1 Diabetes mellitus complication detail: without coma Qualified Code(s): E10.10 - Type 1 diabetes mellitus with ketoacidosis without coma Condition: Serious Report Scribed for: Jamila Paris Report Scribed by: Thania Bedolla Date of Report: 01/08/19 Time of Report: 12:49 Physician Review and Approval Statement: Portions of this note were transcribed by a medical photographer. I personally performed a history, physical exam, medical decision making, and confirmed accuracy of information the transcribed note.
[2019-01-08] MEDS ORDERED: NS 1,000 ML IV ONE ×2 (12:32→13:33)
[2019-01-08] MEDS ORDERED: INSULIN REGULAR HUMAN 100 UNIT, COSIGN. REQUIRED 1 EA in NS 100 ML IV ONE (12:32)
[2019-01-08] MEDS ORDERED: HYDROmorphONE/DILAUDID 1 MG/ML INJ ONE (12:37)
[2019-01-08 12:39] LABS: PLATELET COUNT 338 10^3/uL (150-400)
[2019-01-08] MEDS ORDERED: HYDROmorphONE/DILAUDID 1 MG/ML INJ IVP ONE ×2 (12:39→14:13)
[2019-01-08 12:58] LABS: INR 1.46 (0.83-1.16); PROTIME(PATIENT) 17.1 SEC (12.0-15.0)
[2019-01-08] MEDS ORDERED: SODIUM BICARBONATE 50 MEQ/50 ML SYR IVP ONE (13:03)
[2019-01-08 13:37] LABS: CREATINE KINASE 132 IU/L (0-156)
[2019-01-08] MEDS ORDERED: HEPARIN 10,000 UNIT/10 ML MDV (1,000 UNIT/ML) IVP PRN (14:19)
[2019-01-08] MEDS ORDERED: ONDANSETRON DISINTEGRATING 4 MG TAB PO PRN (14:20)
[2019-01-08] MEDS ORDERED: ONDANSETRON 4 MG/2 ML VIAL IVP PRN ×2 (14:20→18:42)
[2019-01-08] MEDS ORDERED: PROMETHAZINE HCL 25 MG/ML INJ IVP PRN (14:20)
[2019-01-08] MEDS ORDERED: NS 1,000 ML IV SCH ×2 (14:30→23:30)
[2019-01-08] MEDS ORDERED: PROTOCOL POTASSIUM 1 DOSE MISC PRN ×2 (14:46→23:40)
[2019-01-08] MEDS ORDERED: D10W 1,000 ML IV SCH (15:00)
[2019-01-08] MEDS ORDERED: RN:ENTER POTASSIUM ICU PROTOCOL ON WORKLIST MISC ONE (15:00)
[2019-01-08] MEDS ORDERED: INSULIN REGULAR HUMAN 100 UNIT in NS 100 ML IV SCH (15:00)
[2019-01-08] MEDS ORDERED: NS 500 ML IV ONE ×3 (15:00→16:00)
[2019-01-08] MEDS ORDERED: PAPAVERINE HCL 60 MG/2 ML SDV ONE (15:02)
[2019-01-08] MEDS ORDERED: POLYMYXIN B SULFATE 500,000 UNIT/10 ML SYR IRR ONE (15:03)
[2019-01-08] MEDS ORDERED: IOTHALAMATE MEG (CONRAY) 50 ML VIAL IV ONE (15:03)
--- NOTE | 2019-01-08 15:03 | PDCONSULT ---
Animal Cytologist Note: Consult at the request of Dr. Jamila Paris for left lower extremity pain History of present illness This is a 58-year-old woman with 3 days of increasing left lower leg pain predominantly in the area of her quadriceps. She was noted to have mottling of her skin. She has a known history of previous limb loss below the knee from arterial injury she is currently on anticoagulation Xarelto 15 mg daily for this issue. Her blood sugar was noted to be 700 on arrival and she appeared to be in acute distress. Past medical history: Diabetes, arterial clot requiring below-knee amputation, morbid obesity, MRSA Past surgical history left BKA Review of systems significant for increasing of left lower leg pain Home medications Insulin Aspart [novoLOG] 2 - 10 unit SC TIDMEAL 02/05/17 [Last Taken 08/04/17 8 units] Insulin Detemir [Levemir] 25 unit SQ DAILY 02/05/17 [Last Taken 08/03/17] Rivaroxaban [Xarelto 15mg (*)] 15 mg PO HS 02/05/17 [Last Taken 08/02/17] Insulin Detemir [Levemir] 15 unit SQ HS 02/06/17 [Last Taken 08/02/17] Metoprolol Tartrate [Lopressor 25 mg (*)] 25 mg PO BID 02/06/17 [Last Taken ] Pregabalin [Lyrica 75mg (*)] 150 mg PO TID 02/06/17 [Last Taken 08/04/17] Acetaminophen [Tylenol ES 500 mg (*)] 1,000 mg PO Q8 PRN 03/15/17 [Last Taken ] Atorvastatin Calcium [Lipitor 20 mg (*)] 20 mg PO HS 03/15/17 [Last Taken ] Herbals/Supplements -Info Only 1 ea PO DAILY 03/15/17 [Last Taken Unknown] Multivitamins [Multivitamin (*)] 1 each PO DAILY 03/15/17 [Last Taken 08/03/17] Ascorbic Acid [Vitamin C 500 mg (*)] 500 mg PO DAILY 08/04/17 [Last Taken Unknown] Ferrous Sulfate [Slow Fe 140 MG] 140 mg PO DAILY 08/04/17 [Last Taken Unknown] Lisinopril [Zestril 30 mg] 30 mg PO DAILY 08/04/17 [Last Taken 08/04/17] Venlafaxine Xr [Effexor Xr 75MG (*)] 225 mg PO DAILY 08/04/17 [Last Taken ] amLODIPine BESYLATE [Norvasc 2.5 mg (*)] 2.5 mg PO DAILY 08/04/17 [Last Taken ] TOPIRAMATE 08/29/17 [Last Taken Unknown] Lisdexamfetamine Dimesylate [Vyvanse] 40 mg PO DAILY 01/08/19 [Last Taken Unknown] Tasimelteon [Hetlioz] 20 mg PO DAILY 01/08/19 [Last Taken Unknown] Allergy/AdvReac Type Severity Reaction Status Date / Time aspartame Allergy Verified 01/08/19 12:24 morphine Allergy Hives Verified 01/08/19 12:24 Sulfa (Sulfonamide Allergy Hives Verified 01/08/19 12:24 Antibiotics) contrast Allergy Itching Uncoded 01/08/19 12:24 Alert oriented to person place and time Obvious distress with leg leg pain Sclerae anicteric Regular rate and rhythm Clear to auscultation bilaterally Abdomen soft nontender nondistended Right lower extremity pulses intact Left lower extremity mottled without palpable popliteal pulse. Femoral pulse 1+ . Below-knee amputation site healed no open wounds or sores no obvious abscess Imaging Impressions Extremity Venous Study 01/08/19 12:34 Impression: No deep venous thrombosis in the left lower extremity. Previous BKA. Findings discussed with Jamila Paris MD at 13:13 hour, 01/08/2019. Arterial/Peripheral Duplex 01/08/19 13:47 Impression: 1. Occlusion probably from thrombus involving the left common femoral artery with collateral recanalization of the mid to distal SFA. 2. Profundus femoral artery on the left cannot be delineated. 3. Normal flow pattern right lower extremity. Findings discussed with Sherif Echevarria MD at 14:51 hour, 01/08/2019. 01/08/19 12:20 01/08/19 14:00 Total Bilirubin 0.4 mg/dL (0.1-1.4) 01/08/19 12:20 Conjugated Bilirubin 0.4 mg/dL (0.0-0.5) 01/08/19 12:20 Unconjugated Bilirubin 0.0 mg/dL (0.0-1.1) 01/08/19 12:20 AST 30 IU/L (14-46) 01/08/19 12:20 ALT 26 IU/L (9-52) 01/08/19 12:20 Impression/plan: Left lower extremity embolus/plan this despite being on anticoagulation. Diabetic ketoacidosis management per hospital Medicine and critical care No role for MRA or angiogram prior given arterial duplex findings Operative embolectomy has been recommended. She is placed on heparin ggt prior to this. ICU resuscitation Central line placement prior to the operating room Formal hematology consult postoperatively up
[2019-01-08] MEDS ORDERED: BACITRACIN 50,000 UNITS/10 ML SYR IRR ONE (15:04)
--- NOTE | 2019-01-08 15:11 | SUROPNOTE ---
[facility] Operative Report - Surgery Central Line Insertion Procedure: Left Subclavian CVC Attending Physician: Dr. Chay Lutz Anesthesiologist: N/A Anesthesia Type: Moderate sedation, 15 minutes. In total 2 mg of Dilaudid Indication: vascular access Consent: the patient was counseled as to the risks, benefits, and alternatives to the procedure and they agreed to proceed. Signed consent was obtained and placed into chart. Time-Out: prior to the procedure, time-out was performed to verify patient's name, date of , correct procedure, correct side, correct site, correct patient position, correct radiographic data, and special equipment required. Pre-Op Dx: hypotension-presumed sepsis Post-Op Dx: hypotension-presumed sepsis Medications: none Description: Hand hygiene was performed. Pt was positioned supine and appropriate landmarks were identified (site was selected as the optimal site for procedure, given considerations of sterility and safety). Skin above the left clavicle and left chest were prepped with Chloraprep (with time allowed to dry) prior to catheter insertion and with maximal sterile precautions ( including gown, sterile gloves, mask, cap, and large sterile draping). The site was locally anesthetized with lidocaine 1% (2 ml). Using landmarks, the left subclavian vein was punctured with an 18 gauage finder needle -> passage of guidewire -> passage of guidewire -> passage of dilator -> passage of CVC over guidewire. Return of venous blood from all ports, catheter was flushed. Catheter was sutured in place with silk suture and dressed with sterile dressing. Placement was confirmed by portable CXR. Moderate sedation was administered by dedicated RN who monitor patient's vital signs and cardiopulmonary status continuous throughout the procedure. EBL: 0 ml Complications: none Specimens Sent: none Implants: N/A F/U: routine CVC care Chay Lutz MD Pulmonary, Critical Care and Sleep Medicine [phone]
--- NOTE | 2019-01-08 15:13 | PDANEPAE ---
ANE History of Present Illness emergent embolectomy ANE Past Medical History - Cardiovascular History Hx Hypertension: Yes - Pulmonary History Hx Oxygen in Use at Home: No Hx Sleep Apnea: No - Endocrine History Hx Diabetes: Yes - Neurological & Psychiatric Hx Hx Neurological and Psychiatric Disorders: Yes Neurological / Psychiatric History Comment: h/o CVA w R sided weakness - Chronic Pain History Chronic Pain: Yes ANE Review of Systems Review of Systems: - Exercise capacity Exercise capacity: <4 METS ANE Patient History - Allergies Allergies/Adverse Reactions: aspartame Allergy (Verified 01/08/19 12:24) morphine Allergy (Verified 01/08/19 12:24) Hives Sulfa (Sulfonamide Antibiotics) Allergy (Verified 01/08/19 12:24) Hives contrast Allergy (Uncoded 01/08/19 12:24) Itching - Home Medications Home Medications: Insulin Aspart [novoLOG] 2 - 10 unit SC TIDMEAL 02/05/17 [Last Taken 08/04/17 8 units] Insulin Detemir [Levemir] 25 unit SQ DAILY 02/05/17 [Last Taken 08/03/17] Rivaroxaban [Xarelto 15mg (*)] 15 mg PO HS 02/05/17 [Last Taken 08/02/17] Insulin Detemir [Levemir] 15 unit SQ HS 02/06/17 [Last Taken 08/02/17] Metoprolol Tartrate [Lopressor 25 mg (*)] 25 mg PO BID 02/06/17 [Last Taken ] Pregabalin [Lyrica 75mg (*)] 150 mg PO TID 02/06/17 [Last Taken 08/04/17] Acetaminophen [Tylenol ES 500 mg (*)] 1,000 mg PO Q8 PRN 03/15/17 [Last Taken ] Atorvastatin Calcium [Lipitor 20 mg (*)] 20 mg PO HS 03/15/17 [Last Taken ] Herbals/Supplements -Info Only 1 ea PO DAILY 03/15/17 [Last Taken Unknown] Multivitamins [Multivitamin (*)] 1 each PO DAILY 03/15/17 [Last Taken 08/03/17] Ascorbic Acid [Vitamin C 500 mg (*)] 500 mg PO DAILY 08/04/17 [Last Taken Unknown] Ferrous Sulfate [Slow Fe 140 MG] 140 mg PO DAILY 08/04/17 [Last Taken Unknown] Lisinopril [Zestril 30 mg] 30 mg PO DAILY 08/04/17 [Last Taken 08/04/17] Venlafaxine Xr [Effexor Xr 75MG (*)] 225 mg PO DAILY 08/04/17 [Last Taken ] amLODIPine BESYLATE [Norvasc 2.5 mg (*)] 2.5 mg PO DAILY 08/04/17 [Last Taken ] TOPIRAMATE 08/29/17 [Last Taken Unknown] Lisdexamfetamine Dimesylate [Vyvanse] 40 mg PO DAILY 01/08/19 [Last Taken Unknown] Tasimelteon [Hetlioz] 20 mg PO DAILY 01/08/19 [Last Taken Unknown] - NPO status NPO Status: no food or drink >8 hours - Anes Hx Anes Hx: no prior problems - Smoking Hx Smoking Status: Former smoker - Alcohol Use Alcohol Use: None - Family Anes Hx Family Anes Hx: none ANE Labs/Vital Signs - Labs Result Diagrams: 01/08/19 12:20 01/08/19 14:00 - Vital Signs Blood Pressure: 118/63 Heart Rate: 112 Respiratory Rate: 30 O2 Sat (%): 99 Height: 182.88 cm Weight: 106.7 kg ANE Physical Exam - Airway Neck exam: FROM Mallampati Score: Class 3 Mouth exam: normal dental/mouth exam - Pulmonary Pulmonary: no respiratory distress, clear to auscultation - Cardiovascular Cardiovascular: regular rate and rhythym, no murmur, rub, or gallop - ASA Status ASA Status: III, E ANE Anesthesia Plan Anesthesia Plan: general endotracheal anesthesia Lines/Monitors: arterial line
[2019-01-08] MEDS ORDERED: BUPIVACAINE 0.5% 30 ML SDV ONE (15:20)
--- NOTE | 2019-01-08 15:21 | ASMTCMCOM ---
CM Note CM Note Notes: Reviewed chart. Pt presented to the Emergency Department with complaints of shortness of breath. History includes IDDM, HTN, Lupus, Farrah's dx, cardiomyopathy, anemia, stroke, nephrectomy, below the knee amputation, depression and former smoker. Pt is single and lives in [place]. Pt admitted for DKA with hyperglycemia for further observation and treatment. Discharge needs remain unclear at this time. CM will continue to follow. Discharge Plan: To be determined Date Signed: 01/08/2019 03:20 PM Electronically Signed By:Jing Hahn RN
[2019-01-08] MEDS ORDERED: LIDOCAINE 2% 100 MG/5 ML SYR ONE (15:24)
[2019-01-08] MEDS ORDERED: fentaNYL 100 MCG/2 ML INJ ONE (15:24)
[2019-01-08] MEDS ORDERED: PROPOFOL 200 MG/20 ML VIAL ONE (15:24)
--- NOTE | 2019-01-08 15:44 | PDCONSULT ---
Manager Foreign Note: ASSESSMENT 58 year old F with multiple comorbidities including APS on rivaroxaban admitted with DKA and life-threatening critical limb ischemia # life threatening critical limb ischemia. L BKA without flow. # APS. Failed rivaroxaban. Should not be restarted on DOAC as OP. Given uncontrolled diabetes is also possible patient was not taking rivaroxaban However, if patient has triple positive APS and no contraindications, she may be better served with warfarin # DKA # AGMA severe. DKA and ischemic limb # h/o CVA # DM, uncontrolled. last A1c 12 # PAD complicated history. See past medical history for details. Large related to APS # AGMA # leukocytosis ischemic and DKA. # TRUDY PLAN # place emergent CVC for IV access # aggressive IVF with 3 amp bicarb in D5W for resuscitation and DKA fluids given TRUDY and AGMA (Lancet. 2018 Mar 20;392(19182):31-40) # insulin gtt for DKA protocol # emergent OR thrombectomy # needs therapeutic heparin gtt post thrombectomy # expect platelets to fall on heparin given APS # if concerns for HIT and uncomfortable with heparin may consider argatroban gtt # heme/onc consult # will defer abx given lack of infection # recommend HST # Feeding - NPO # Analgesia APAP, dilaudid # Sedation propofol # Thromboprophylaxis - hep gtt # Head of bed elevated # Ulcer prophylaxis - H2 wilbert # Glucose SSI # Skin no skin breakdown # Delirium - delirium precautions Chief complaint Shortness of breath, leg pain HPI I was asked by Dr. Robertson of Hospital Medicine to evaluate this patient for ICU care in the setting of critical limb ischemia in severe metabolic derangements. Yvette is a very pleasant unfortunate female with a history of antiphospholipid antibody syndrome, type 2 diabetes peripheral vascular disease and prior CVA as well as Farrah's thyroiditis and BEKAH who presents to the emergency department with to 3 days of increasing left thigh pain, nausea and vomiting. No fevers chills new rashes chest pain, or syncope. I also reviewed patient's medical record and past admission documentations to obtain further history Allergies morphine, sulfa antibiotics, contrast Medication Medication reconciliation was performed. See EMR for details Past medical history A fossa lipid antibody syndrome, CVA, peripheral vascular disease, arterial thrombus requiring aorta fem-pop bypass with iatrogenic kidney injury, PTSD, Farrah's thyroiditis, BEKAH intolerant of CPAP in oxygen, systemic hypertension , cardiomyopathy, obesity Surgical history Left BKA with aortofemoral bypass, renal artery infarct, wound VAC, tonsillectomy, Family history CD, hyperlipidemia Review of systems A comprehensive 10 point review of systems was obtained is negative except as per HPI Physical exam afebrile, tachy 120s, 117/62, resp 32, 99% on 2 L NC GEN: Resting in bed moderate distress NEURO: Cranial 2-12 grossly intact, moaning in pain, not delirious HEENT: Thick neck, Mallampati 4, oropharynx otherwise clear NECK: supple, trachea midline CHEST normal shape, no pes excavatum CVS: rrr no m/r/g, no JVD appreciated PULM: CTAB, no wheezes/rales/rhonchi ABD: soft, NT, ND, NABS EXT: Cold left stump, warm right foot SKIN: warm, dry, intact, no rash PSYCH CAM negative, appropriate affect Labs Reviewed TRUDY, severe anion gap metabolic acidosis, leukocytosis 30 Imaging Personally reviewed interpreted radiographic images well as formal radiology reads 01/08/2019 CXR clear well expanded lungs left subclavian CVC catheter in place Patient is critically ill due to multiorgan failure is high risk for further decompensation . Total critical care time exclusive of procedures included 119 min which was spent evaluating the patient at bedside, discussions with specialists, titrating medications and coordinating care.
--- NOTE | 2019-01-08 15:57 | GHP ---
[f rep st] HISTORY AND PHYSICAL DATE OF ADMISSION: 01/08/2019 HISTORY OF PRESENT ILLNESS: The patient is a pleasant 58-year-old female with a history of insulin-d ependent diabetes, and history of arterial embolism causing a left BKA. This happened a number of ye ars ago. She was feeling well yesterday and has been taking her medicines as prescribed, including i nsulin and Xarelto. She has had some leg pain going on for a number of days. This morning she woke up in DKA feeling poorly with nausea, pain. She has increased pain in her leg. She has some subject gertrude fevers and chills. She has a prosthesis that is not poorly fitting and she has noted no drainage at her stump. She does not drink alcohol to excess nor does she use injection drugs. This morning her blood sugar was greater than 500 with pain in her left thigh. REVIEW OF SYSTEMS: Complete 10-point review of systems conducted and negative except as noted in the HPI. PAST MEDICAL HISTORY: 1. Insulin-dependent diabetes. It is not clear that this is type 1 physiology, although I suspect i t is. 2. Antiphospholipid antibody syndrome with left BKA. 3. CVA in 2006 with residual memory problems, peripheral vascular disease, depression, anxiety, PTSD , Farrah thyroiditis. ALLERGIES: Aspartame, morphine, contrast, sulfa. It is not clear what happens if she takes contrast . HOME MEDICATIONS: Acetaminophen, amlodipine, ascorbic acid, atorvastatin, ferrous sulfate, insulin d etemir 15 in the evening, 25 daily; levothyroxine, , lisinopril, metoprolol, multivitamin, pregabalin, rivaroxaban, tasimelteon, Topamax and venlafaxine. SOCIAL HISTORY: No tobacco, no alcohol. Lives in [place]. FAMILY HISTORY: Mother has coronary artery disease with stents in her 60s. PHYSICAL EXAMINATION: PRESENTING VITALS: Temp 35.7, blood pressure 150/101, pulse 118, breathing 30 times a minute, 100% on room air. Blood pressure is now 118/63. GENERAL: Uncomfortable, shifting in her hospital bed. HEENT: Sclerae anicteric. Oropharynx clear. Mucous membranes dry. NECK: Chau pple. No lymphadenopathy or JVD. LUNGS: Clear to auscultation anterolaterally. HEART: S1, S2. T achycardic. ABDOMEN: Soft, nontender, nondistended. EXTREMITIES: Her right lower extremity shows cool toes with some purple. Her left leg is mottled and cool up to about the posterior mid thigh and just above the knee on the anterior aspect. There is no fluctuance. There is no warmth. There is mottling. There is no erythema. NEUROLOGIC: Nonfocal. LABS: White count 30.3, hematocrit 46, platelets are 330,000. INR is 1.46 in the setting of Xarelto therapy. Venous blood gas has a pH of 6.93 with a pCO2 of 3, that is kind of a meaningless number; bicarb of 2. Sodium 128, potassium 6.3, chloride 88, bicarb less than 5, BUN 25, creatinine 2, her b aseline creatinine is essentially normal. Glucose at 973. LFTs are normal other than an elevated al kaline phosphatase. CK is 132, troponin is 0.01. After 2 hours in the emergency department, her sod ium is 132, potassium 5.5, chloride 96, bicarb less than 5, BUN 25, creatinine 2, glucose 860, calciu m is 8.3. Venous ultrasound shows no DVT. Arterial duplex is pending at this time. EKG shows sinus tachycardia with incomplete left bundle, left axis deviation is wavy baseline, diffuse. There is a flat T in I or L. Compared with prior, the left axis deviation is not new but the widened QRS is new . I have discussed the case with Dr. Jamila Paris and Dr. Sherif Echevarria and Dr. Hayden Lutz. ASSESSMENT AND PLAN: This is a 58-year-old female with diabetic ketoacidosis and what appears to be limb-threatening ischemia. 1. Limb ischemia. The patient has a cool limb and a history of arterial emboli, currently on a nove l oral anticoagulant. I have discussed the case at length with Dr. Echevarria and we feel that urgent i ntervention is probably indicated. I would await the results of the arterial duplex. If that shows no flow in the profundus artery, then probably go straight to the OR. If not, an MRA has been ordere d and we have notified Interventional Radiology. A CT angiogram is contraindicated at this point in time, given her kidney injury. Apparently, she has 1 kidney. 2. A lactate has been ordered which is pending at this time. Additionally, infection was considered , but felt to be unlikely given the absence of warmth. Her white count could be due to numerous reas ons including limb ischemia. 3. Diabetic ketoacidosis. I believe this is secondary to acute limb ischemia. We will treat this w ith the diabetic ketoacidosis protocol. 4. Leukocytosis noted secondary to the above 2 processes. 5. Hyperkalemia. We will follow. It is coming down with resuscitation. 6. Acute kidney injury. This is prerenal. 7. Pain. We will give her some adequate pain medicine while we are evaluating her. 8. Acidosis, diabetic ketoacidosis, and possible secondary contribution of lactic acidosis for limb hypoperfusion. 9. Prophylaxis. We are going to start her on a heparin drip, hold her Xarelto. DISPOSITION: Inpatient status, critically ill, 60 minutes critical care time. /[id number]/MODL
--- NOTE | 2019-01-08 16:28 | PDMN ---
Medical Necessity Medical necessity: Pt meets IP criteria per MD & MCG MG-VAS Vascular Disease; est los >2 mn for eval/tx of acute life-threatening limb ischemia w/DKA, TRUDY & hyperkalemia; admit for urgent surgical intervention & close ICU monitoring/ critical care; hx IDDM, BKA, CVA; per H&P & order 01/08/19
[2019-01-08] MEDS ORDERED: SODIUM BICARBONATE 150 MEQ in D5W 1,000 ML IV ONE (16:30)
[2019-01-08] MEDS ORDERED: SODIUM BICARBONATE 150 MEQ in D5W 1,000 ML IV SCH (16:30)
[2019-01-08] MEDS ORDERED: NA BICARBONATE 50 MEQ/50 ML VIAL ONE (16:36)
--- NOTE | 2019-01-08 18:34 | POSTOPPROG ---
Post Op Note Date of Operation: 01/08/19 Surgeon: Sherif Echevarria Program Production Specialist: none Anesthesiologist: Mena Anesthesia: GET(General Endotracheal) Pre-op Diagnosis: Left leg ischemia Post-op Diagnosis: same Procedure: Embolectomy L x-fem bypass graft and [place] arteries Findings: sabianism of blood flow, organized and granular thrombus Inf/Abcess present in the surg proc area at time of surgery?: No EBL: 100-500 Specimen(s): embolectomy fragments
[2019-01-08] MEDS ORDERED: NALOXONE HCL 0.4 MG/ML INJ IVP PRN (18:42)
[2019-01-08] MEDS ORDERED: fentaNYL 100 MCG/2 ML INJ IVP PRN (18:42)
[2019-01-08] MEDS ORDERED: NS 500 ML IV PRN (18:42)
--- NOTE | 2019-01-08 18:47 | POSTANESTH ---
Post Anesthetic Evaluation Cardiovascular Status: Normal, Stable, Similar to Pre-Op Cond Respiratory Status: Normal, Stable, Similar to Pre-op Cond. Level of Consciousness/Mental Status: Mildly Sleepy, Arousable Pain Control: Adequate, Prn Tx Ordered Nausea/Vomiting Control: Adequate, Prn Tx Ordered Complications Possibly Related to Anesthesia: None Noted
[2019-01-08 19:45] LABS: CREATINE KINASE 460 IU/L (0-156)
[2019-01-08 19:47] LABS: INR 1.41 (0.83-1.16); PROTIME(PATIENT) 16.6 SEC (12.0-15.0)
[2019-01-08] MEDS: HEPARIN/DEXTROSE 500 ML IV SCH (19:48)
[2019-01-08 20:08] LABS: PLATELET COUNT 269 10^3/uL (150-400)
[2019-01-08] MEDS: HYDROmorphONE/DILAUDID 1 MG/ML INJ IVP PRN (21:31)
[2019-01-08] MEDS ORDERED: POTASSIUM Cl (KCl) 50 ML IV ONE (23:41)
[2019-01-09] MEDS ORDERED: INSULIN GLARGINE 100 UNITS/ML UNIT SC ONE (02:17)
[2019-01-09] MEDS: HYDROmorphONE/DILAUDID 1 MG/ML INJ IVP PRN ×5 (02:38→20:02)
[2019-01-09] MEDS: POTASSIUM Cl (KCl) 50 ML IV SCH ×3 (02:38→03:38)
[2019-01-09] MEDS ORDERED: NS 500 ML IV ONE (03:44)
[2019-01-09] MEDS ORDERED: METOPROLOL TARTRATE 5 MG/5 ML INJ IVP PRN (03:47)
[2019-01-09 05:15] LABS: PLATELET COUNT 214 10^3/uL (150-400)
--- NOTE | 2019-01-09 05:28 | GOP ---
[f rep st] OPERATIVE REPORT DATE OF OPERATION: SURGEON: Sherif Echevarria MD ANESTHESIA: General endotracheal anesthesia was used. ANESTHESIOLOGIST: Dr. Amrit San. PREOPERATIVE DIAGNOSIS: Left lower leg ischemia. POSTOPERATIVE DIAGNOSIS: Left lower leg ischemia. PROCEDURE PERFORMED: Left cross-femoral and [place] vessel embolectomy. FINDINGS: Previous cross-femoral bypass graft that is completely occluded with clots extending down into the superficial and deep femoral arteries. Confirmatory fluoroscopy is performed, which demonst rates no further embolus. DESCRIPTION OF PROCEDURE: The patient was brought to the operating room. After induction of general endotracheal anesthesia, in supine position, she has A-line placed and she is prepped for exploratio n of the left groin. The area was prepped with chlorhexidine. Time-out procedure was then performed according to institutional standards. Local anesthetic 0.5% Marcaine was infused in the skin and barragan bcutaneous tissues. Incision was made along the previous incision, deepened with electrocautery, and sharp dissection is used identify the bypass graft and [place] vessels. Vessel loops are used to control proximal and dis [place] vessels. The profunda, superficial, and common femoral are encircled and a small tie is p laced around circumferential branch. The graft itself was dissected out and the barnes of the graft was opened and an embolectomy catheter w as placed first distally, then proximally to remove both granular liquid clot as well as organized th rombus. After several passes with a #4 Nacho catheter, both femoral profunda and superficial have good yue k flow and bleeding, and the common femoral is completely occluded. This is not embolized. The cros s-femoral graft left limb is completely open and there is pulsatile flow into the groin. After ensuring all the debris is cleared, the superficial femoral artery is opened. 5-0 Prolene is u sed to close the arteriotomy made in the cross-femoral graft. Hemostasis was assured. Doppler flow is confirmed within the profunda and deep circulation. Angiogram is then performed to ensure flow in huslia vessels down to the level of her BKA stump. The re is a small distal clot that is not removed, but does not appear to be flow limiting. This conclud ed the surgery. Needle, instrument, and sponge counts verified to be correct. The incision was closed in layers using 2-0 Vicryl and 4-0 Monocryl. Dermabond was applied. The patient was awakened, extubated, and taken to the ICU in critical condition. No immediate complications. This is a 58-year-old woman who presents to the hospital with a cold ischemic right leg and DKA with blood sugars in the 800 range. The patient had previous history of antiphospholipid syndrome and had multiple blood clots, one rate necessitating left below-knee amputation. The patient is unable to g gertrude a clear history prior to surgery, but is able to consent for embolectomy at that time. /[id number]/MODL
[2019-01-09] MEDS ORDERED: INSULIN LISPRO 100 UNIT/ML SC SCH (07:30)
[2019-01-09] MEDS ORDERED: VENLAFAXINE XR 150 MG CAP PO SCH (09:00)
[2019-01-09] MEDS ORDERED: (Lisdexamfetamine Dimesylate [Vyvanse] 40 MG) PO SCH (09:00)
[2019-01-09] MEDS ORDERED: Herbals/Supplements -Info Only PO SCH (09:00)
--- NOTE | 2019-01-09 09:15 | HOSPPROG ---
Hospitalist Progress Note Assessment/Plan: 58 yo F w APS and dm a.w DKA and limb threatening ischemia 2/2 femoral artery clot limb ischemia: s/p emergent surgical thrombectomy stump/limb looks great continue heparn gtt today APS; failed DOAc per her history, has failed warfarin as well heparin gtt hematology consult today may need lifelong lmwh DKA: 2/2 above gap closd transition to home doses insulin today R hip pain: check film exam not concerning for infection, fracture unlikely htn: restart home meds minus CRISTI TRUDY: improving hold CRISTI pyuria: no irritative voiding sx hold abx purulent sputum: cxr OK by my read proph: anticoagulated dispo: icu remive stuart 40 min crit care Subjective: case d/w dr landon. cxr w no infiltrate (interp by me). c/o R hip pain, was able to bear weight yesterday AM Objective: Vital Signs Temp Pulse Resp BP Pulse Ox 36 C 98 18 165/84 H 94 01/08/19 19:00 01/09/19 07:00 01/09/19 07:00 01/09/19 07:00 01/09/19 07:00 Laboratory Results 01/09/19 04:55 01/09/19 04:55 01/08/19 01/09/19 01/10/19 05:59 05:59 05:59 Intake Total 6824 Output Total 1000 Balance 5824 PT 16.6 SEC (12.0-15.0) H 01/08/19 19:00 INR 1.41 (0.83-1.16) H 01/08/19 19:00 - Physical Exam Constitutional: no apparent distress Eyes: PERRL, anicteric sclera Ears, Nose, Mouth, Throat: moist mucous membranes, hearing normal Cardiovascular: regular rate and rhythym, tachycardia Respiratory: no respiratory distress, no rales or rhonchi Gastrointestinal: normoactive bowel sounds, soft, non-tender abdomen Genitourinary: no bladder fullness, stuart in urethra Skin: warm, normal color Musculoskeletal: other (L leg/stump warm, no mottling. R hip tender to pressure , so skin changes, no joint pain w passive movement) ICD10 Worksheet Patient Problems: Problems Problem Status Onset DKA (diabetic ketoacidosis) Acute Mottled skin Acute Right leg pain Acute Abscess Acute Chest pain Acute Methicillin resistant Staphylococcus aureus infection Acute Orthostatic hypotension Acute Urinary tract infection Acute
[2019-01-09] MEDS: METOPROLOL TARTRATE 25 MG TAB PO SCH (09:37)
[2019-01-09] MEDS: PREGABALIN 75 MG CAP PO SCH ×3 (09:37→20:50)
[2019-01-09] MEDS: HEPARIN/DEXTROSE 500 ML IV SCH (09:37)
--- NOTE | 2019-01-09 09:39 | SOAPPROG ---
SOAP Progress Note Assessment/Plan: Assessment/Plan: 58 yo with hx of APS on Xarelto presents with acute r to l cross femoral graft embolus. Profound ischemia and DKA resolving L bka stump warm right toes with evidence of distal embolization (likely due to embolectomy) palp PT pulse acidosis cleared. glucose 118 still delirious Leucocytosis inflammatory no abx for now 01/09/19 09:34 Objective: Vital Signs Temp Pulse Resp BP Pulse Ox 36 C 98 18 165/84 H 94 01/08/19 19:00 01/09/19 07:00 01/09/19 07:00 01/09/19 07:00 01/09/19 07:00 Laboratory Results 01/09/19 04:55 01/08/19 01/09/19 01/10/19 05:59 05:59 05:59 Intake Total 6824 Output Total 1000 Balance 5824 PT 16.6 SEC (12.0-15.0) H 01/08/19 19:00 INR 1.41 (0.83-1.16) H 01/08/19 19:00 ICD10 Worksheet Patient Problems: Problems Problem Status Onset DKA (diabetic ketoacidosis) Acute Mottled skin Acute Right leg pain Acute Abscess Acute Chest pain Acute Methicillin resistant Staphylococcus aureus infection Acute Orthostatic hypotension Acute Urinary tract infection Acute
[2019-01-09] MEDS: INSULIN GLARGINE 100 UNITS/ML UNIT SC SCH ×2 (09:53→20:51)
[2019-01-09] MEDS: INSULIN LISPRO 100 UNIT/ML SC SCH ×3 (09:59→18:07)
[2019-01-09] MEDS ORDERED: LABETALOL HCL 200 MG TAB PO SCH (10:00)
[2019-01-09] MEDS ORDERED: FUROSEMIDE 20 MG/2 ML VIAL IVP ONE (10:09)
--- NOTE | 2019-01-09 11:42 | PDINTPN ---
Laminating Machine Offbearer Progress Note Assessment/Plan: ASSESSMENT 58 year old F with multiple comorbidities including APS on rivaroxaban admitted with DKA and life-threatening critical limb ischemia s/p L cross femoral and [place] vessel embolectomy 01/08/19 # life threatening critical limb ischemia. s/p cross fem and [place] vessel embolectomy 01/08/19 with return of flow # APS. Failed rivaroxaban. However, given uncontrolled DM, its possible she skipped doses. Regardless, should not be restarted on DOAC as OP. However, if patient has triple positive APS and no contraindications, she may be better served with warfarin # R hip pain. query fall vs other # DKA, resolved # AGMA severe. resolved # h/o CVA # DM, uncontrolled. last A1c 12 # PAD complicated history. See past medical history for details. Largely related to APS # AGMA # leukocytosis ischemic and DKA. # TRUDY,improving # cough with productive sputum production. CXR clear, not tachypneic, no hypotension, rpna negative # hypertension PLAN # hip xray # continue heparin gtt # will not give abx unless clinical worsening or focal evidence of infection # follow up sputum and blood cultures # labetalol for hypertension # lasix x1 now for post resuscitation hypervolemia # transition from insulin drip to basal plus bolus # advance diet # pain control. # suggest transition to warfarin when clinically improved unless there is a contraindication # heme/onc consult # okay to transfer to SDU Subjective: emergent embolectomy yesterday with resolution of ischemia. AGMA resolved, new productive cough. No shortness of breath or hypoxemia. Also complains of new right-sided hip pain. No fevers or chills Objective: Vital Signs Temp Pulse Resp BP Pulse Ox 36 C 98 18 165/84 H 94 01/08/19 19:00 01/09/19 07:00 01/09/19 07:00 01/09/19 07:00 01/09/19 07:00 Laboratory Results 01/09/19 04:55 01/09/19 09:00 01/08/19 01/09/19 01/10/19 05:59 05:59 05:59 Intake Total 6824 Output Total 1000 Balance 5824 PT 16.6 SEC (12.0-15.0) H 01/08/19 19:00 INR 1.41 (0.83-1.16) H 01/08/19 19:00 Physical Exam - Physical Exam General Appearance: alert, mild distress EENT: PERRL/EOMI, normal ENT inspection Neck: other (Thick neck, trachea midline) Respiratory: chest non-tender, lungs clear, other (Intermittently coughing up thick productive sputum. No rales no rhonchi) Cardiac/Chest: normal peripheral pulses, regular rate, rhythm, other (Right foot mildly cool but palpable pulse, left stump now warm) Abdomen: other Skin: normal color, warm/dry Extremities: other (Right medial glue area tender to palpation. No skin lesions. No bony step-off) Neuro/Psych: no motor/sensory deficits, alert, normal mood/affect ICD10 Worksheet Patient Problems: Problems Problem Status Onset DKA (diabetic ketoacidosis) Acute Mottled skin Acute Right leg pain Acute Abscess Acute Chest pain Acute Methicillin resistant Staphylococcus aureus infection Acute Orthostatic hypotension Acute Urinary tract infection Acute
[2019-01-09] MEDS ORDERED: ASPIRIN 325 MG TAB PO SCH (12:15)
[2019-01-09] MEDS ORDERED: POTASSIUM Cl (KCl) 50 ML IV ONE (12:46)
[2019-01-09] MEDS: oxyCODONE IR 5 MG TAB PO PRN ×2 (14:14→19:02)
[2019-01-09] MEDS: ENOXAPARIN 100 MG/ML SYR SC SCH ×2 (14:22→16:13)
--- NOTE | 2019-01-09 14:34 | ASMTCMCOM ---
CM Note CM Note Notes: Patient had an emergent embolectomy w Dr Echevarria yesterday. I have ordered PT/OT. Case Mangement will follow. Date Signed: 01/09/2019 02:33 PM Electronically Signed By:Gissel Alonso RN
[2019-01-09] MEDS ORDERED: NS 1,000 ML IV SCH (15:00)
[2019-01-09] MEDS ORDERED: WARFARIN SODIUM 5 MG TAB PO ONE (16:00)
[2019-01-09] MEDS ORDERED: ALBUMIN 5% 250 ML BOTTLE IV ONE (16:19)
[2019-01-09] MEDS: NOREPINEPHRINE BITARTRATE 4 MG in NS 500 ML IV SCH (16:39)
[2019-01-09] MEDS ORDERED: LABETALOL HCL 100 MG TAB PO SCH (18:00)
[2019-01-09] MEDS: AZITHROMYCIN 250 MG TAB PO SCH (18:07)
--- NOTE | 2019-01-09 19:40 | GCON ---
[f rep st] CONSULTATION HEMATOLOGY CONSULTATION DATE OF CONSULTATION: 01/09/2019 REASON FOR CONSULTATION: Antiphospholipid antibody syndrome. HISTORY OF PRESENT ILLNESS: The patient is a 58-year-old female who was previously seen by my partne r, Dr. Pablo Schaefer. She has a history of antiphospholipid antibody syndrome. The patient has hist ory of a CVA in 2006. In August of 2011, she was seen at a hospital in [facility] with acut e occlusion of her aorta and bilateral lower extremity arterial thrombosis. She had an extensive thr omboembolectomy attempted but this procedure was evidently unsuccessful. She then underwent an aorto bifemoral bypass with bilateral thromboembolectomy. At that time, a "hypercoagulable" workup was per formed which revealed an elevated anticardiolipin antibody. She evidently had no other coagulation a bnormalities noted. She was started on warfarin. In July of 2013, she presented to [facility] in [place] with pain in the left lower ex tremity. She had arterial occlusion. She was treated with tPA, but ultimately required an emergent [id number] amputation. Review of her ER record from [facility] at that time indicated her INR was 1.8 (subtherapeutic). The patient was restarted on warfarin. She relocated to [facility] nd was seen by my partner, Dr. Schaefer, in 2013. She was very nervous about further warfarin therapy a s she had had episode of recurrent thrombosis while on warfarin and after an extensive discussion, roel gilmore was transitioned to Xarelto. She has been taking Xarelto ever since January of 2014. She did not keep subsequent followup appointments with Dr. Schaefer and was last seen by Dr. Schaefer in March of 2014. The patient states that she was taking Xarelto regularly. She did not miss doses per her report. Roel gilmore presented to [facility] on January 08 with increased pain in the left leg. An arteri al Doppler was performed which revealed occlusion and thrombus involving the left common femoral saurabh ry with collateral recannulization of the mid to distal SFA. The patient was seen in surgical consultation by Dr. Echevarria. She underwent a left cross femoral and [place] vessel embolectomy last evening. She had a good outcome with full perfusion restored to the left lower extremity. When seen this morning, she is on a heparin drip. Her left lower extremity is well perfused. PAST MEDICAL HISTORY: 1. Antiphospholipid antibody syndrome as outlined above. 2. Insulin-dependent diabetes mellitus. 3. History of CVA 2006. 4. Peripheral vascular disease. 5. Depression. 6. Anxiety. 7. History of Farrah thyroiditis. SOCIAL HISTORY: The patient lives in [place]. She is a nonsmoker. She does not drink alcohol. FAMILY MEDICAL HISTORY: The patient reports her mother had coronary disease and required cardiac doris nts in her 60s. REVIEW OF SYSTEMS: As above. Patient currently denies left lower extremity pain. She denies abnorm al bleeding or bruising. PHYSICAL EXAM: GENERAL: The patient is in the ICU. She is resting in a hospital bed. She is in no acute distress. HEART: Regular without murmur. EXTREMITIES: Examination of the left lower extrem ity shows a prior left [id number] amputation. The patient's surgical stump is warm and appears w ell perfused. There are no ecchymosis or petechiae. No bleeding at IV sites. NEUROLOGIC: She is a lert, oriented, and appropriate. IMAGING STUDIES: As outlined above. LABORATORY DATA: CBC from today: White count 21,560, hemoglobin of 10.9, hematocrit 30.7, platelet count is 214,000. Sodium 137, potassium 3.7, chloride 105, bicarb 20, BUN 22, creatinine 1.3. IMPRESSION: 1. Antiphospholipid antibody syndrome with history of recurrent arterial thrombosis. 2. Status post recent left cross femoral and [place] vessel embolectomy. 3. Insulin-dependent diabetes mellitus. The patient is a 58-year-old female with a history of antiphospholipid antibody syndrome and multiple recurrent arterial thrombotic events. She has had now a 3rd episode of arterial thrombosis involvin g the left lower extremity. Fortunately, she has had a successful embolectomy and is doing well when seen this morning. I have discussed her case with Dr. Robertson of the hospitalist service and Dr. Sergey godinez of Critical Care Medicine. I think the most optimal long-term anticoagulation regimen for this patient would be a combination of therapeutic warfarin and low-dose aspirin. Recent studies have suggested inferiority of the newer o ral anticoagulants and specifically Xarelto to warfarin in this specific setting. Review of her [facility] record, specifically her ER admission note, would suggest that she was subtherapeuti c at the time of her recurrent arterial thrombosis in 2012. Thus, I do not believe that she failed w arfarin. Given all this information, I would recommend transitioning her to therapeutic warfarin wit h a goal INR of 2.5 to 3.5 and daily 81 mg aspirin. This was discussed with the patient. She is tawnya ewhat upset about the prospect of returning to warfarin therapy. We discussed her concerns and at th e end of our discussion, she appears understanding that this would be the best long-term anticoagulat ion regimen for her. Certainly, long-term Lovenox is another possibility, but this is unappealing du e to the need for regular daily self injections which she would like to avoid. I think it is reasonable to transition her from IV heparin to subcutaneous Lovenox currently. Warfar in could then be started at a dose of 5 mg daily and titrated to a therapeutic INR. She would contin ue on Lovenox at a dose of 1 mg/kg twice daily until her INR is greater than 2.5. Low-dose aspirin ( 81 mg) will be started today and continued indefinitely. I think this is reasonable given that all o f her events have been arterial. I will repeat anticardiolipin and anti-beta 2 glycoprotein antibody testing during her hospital stay. I will notify Dr. Schaefer of her admission and our office ([facility]) can manage her anticoagulation once she is discharged. Our service will continue to continue to follow her during her hospital stay. The care plan was disc ussed with the patient, ICU nursing staff, Dr. Lutz, and Dr. Robertson. Total time for today's visit was approximately 45 minutes of which greater than 50% was spent in coun seling and care coordination. /[id number]/MODL
[2019-01-09] MEDS: ATORVASTATIN CALCIUM 20 MG TAB PO SCH (20:50)
[2019-01-09] MEDS ORDERED: NS 1,000 ML IV ONE (22:51)
[2019-01-10] MEDS: oxyCODONE IR 5 MG TAB PO PRN ×5 (02:07→22:10)
[2019-01-10] MEDS: METOPROLOL TARTRATE 25 MG TAB PO SCH (02:16)
[2019-01-10] MEDS: POTASSIUM Cl (KCl) 50 ML IV SCH ×3 (02:16→03:23)
[2019-01-10] MEDS: HYDROmorphONE/DILAUDID 1 MG/ML INJ IVP PRN ×5 (02:44→21:31)
[2019-01-10] MEDS ORDERED: HYDROmorphONE/DILAUDID 1 MG/ML INJ IVP ONE (02:56)
[2019-01-10] MEDS ORDERED: HYDROmorphONE/DILAUDID 2 MG/ML INJ ONE (02:57)
[2019-01-10] MEDS ORDERED: HYDROmorphONE/DILAUDID 2 MG/ML INJ IVP ONE (03:00)
[2019-01-10] MEDS: ENOXAPARIN 100 MG/ML SYR SC SCH ×3 (03:53→15:56)
[2019-01-10 04:33] LABS: PLATELET COUNT 178 10^3/uL (150-400)
[2019-01-10 04:43] LABS: INR 1.18 (0.83-1.16); PROTIME(PATIENT) 14.5 SEC (12.0-15.0)
--- NOTE | 2019-01-10 05:29 | HOSPPROG ---
Hospitalist Progress Note Assessment/Plan: Hospitalist night float Patient with some episodes of hypotension overnight requiring increasing doses of Levophed. This was initiated in the afternoon but escalated dosing required towards the evening. Patient was given a bolus of normal saline 1 L with improvement in her blood pressures and down titration of Levophed. A repeat H& H in the evening had declined to 8.2/23.5 down from 10.3/28.1. There was some concern for an extending hematoma at the groin site. Pressure was applied as well as sandbag in patient reported improvement in her pain. Her groin site is soft. The hematoma is marked. Incision site is dry clean intact but slightly tender. Given patient's history of APS and recent thrombosis discussed risks benefits for continued anticoagulation but I do not suspect an acute bleed given all the fluid patient has received likely some component of dilution. Patient has not required a transfusion at this point. Patient amenable to proceed with the Lovenox injection at this time. Will monitor her groin site hematoma closely. Patient's type and screen. She reports a previous history of transfusion in the past. Objective: Vital Signs Temp Pulse Resp BP Pulse Ox 37.1 C 85 13 115/66 95 01/09/19 19:00 01/10/19 03:00 01/10/19 03:00 01/10/19 03:00 01/10/19 03:00 Microbiology 01/09/19 16:30 - Final Sputum, Expectorated 01/09/19 09:59 Respiratory Panel (PCR) - Final Nasal, Sinus - Swab No Organism Detected By Pcr Laboratory Results 01/10/19 04:15 01/10/19 04:15 01/08/19 01/09/19 01/10/19 05:59 05:59 05:59 Intake Total 6824 510 Output Total 1000 1800 Balance 5824 -1290 PT 14.5 SEC (12.0-15.0) 01/10/19 04:15 INR 1.18 (0.83-1.16) H 01/10/19 04:15 ICD10 Worksheet Patient Problems: Problems Problem Status Onset DKA (diabetic ketoacidosis) Acute Mottled skin Acute Right leg pain Acute Abscess Acute Chest pain Acute Methicillin resistant Staphylococcus aureus infection Acute Orthostatic hypotension Acute Urinary tract infection Acute
[2019-01-10] MEDS: LEVOTHYROXINE 112 MCG TAB PO SCH (05:34)
[2019-01-10] MEDS: NOREPINEPHRINE BITARTRATE 4 MG in NS 500 ML IV SCH ×2 (05:34→07:54)
--- NOTE | 2019-01-10 09:05 | HOSPPROG ---
Hospitalist Progress Note Assessment/Plan: 58 yo F w APS and dm a.w DKA and limb threatening ischemia 2/2 femoral artery clot limb ischemia: s/p emergent surgical thrombectomy stump/limb looks great lovenox/aspirin hypotension: bp med effect plus possible vagal from groin hematoma APS; failed DOAc per her history, has failed warfarin as well LMWH to warfarin plus aspirin DKA: 2/2 above gap closd transition to home doses insulin today R hip pain: check film exam not concerning for infection, fracture unlikely htn: restart home meds minus CRISTI TRUDY: improving hold CRISTI pyuria: no irritative voiding sx hold abx purulent sputum: cxr OK by my read proph: anticoagulated dispo: icu remive stuart Subjective: stump warm. hypotensive overnight. case d/w dr gage Objective: Vital Signs Temp Pulse Resp BP Pulse Ox 36.4 C 79 16 147/69 H 98 01/10/19 04:00 01/10/19 07:30 01/10/19 07:30 01/10/19 07:30 01/10/19 07:30 Microbiology 01/09/19 16:30 - Final Sputum, Expectorated 01/09/19 09:59 Respiratory Panel (PCR) - Final Nasal, Sinus - Swab No Organism Detected By Pcr Laboratory Results 01/10/19 04:15 01/10/19 04:15 01/09/19 01/10/19 01/11/19 05:59 05:59 05:59 Intake Total 6824 4032 Output Total 1000 1910 Balance 5824 2122 PT 14.5 SEC (12.0-15.0) 01/10/19 04:15 INR 1.18 (0.83-1.16) H 01/10/19 04:15 - Physical Exam Constitutional: no apparent distress, appears nourished Eyes: PERRL, anicteric sclera Ears, Nose, Mouth, Throat: moist mucous membranes, hearing normal Cardiovascular: regular rate and rhythym, no murmur, rub, or gallop Respiratory: no respiratory distress, no rales or rhonchi Gastrointestinal: normoactive bowel sounds, soft, non-tender abdomen Genitourinary: stuart in urethra Skin: warm, normal color Musculoskeletal: full muscle strength, other (stump warm, no mottling. golf ball sized hematoma. incision c/d/i) Neurologic: AAOx3 Psychiatric: interacting appropriately ICD10 Worksheet Patient Problems: Problems Problem Status Onset DKA (diabetic ketoacidosis) Acute Mottled skin Acute Right leg pain Acute Abscess Acute Chest pain Acute Methicillin resistant Staphylococcus aureus infection Acute Orthostatic hypotension Acute Urinary tract infection Acute
[2019-01-10] MEDS: AZITHROMYCIN 250 MG TAB PO SCH (09:34)
[2019-01-10] MEDS: VENLAFAXINE XR 150 MG CAP PO SCH (09:35)
[2019-01-10] MEDS: PREGABALIN 75 MG CAP PO SCH ×3 (09:36→21:29)
[2019-01-10] MEDS: ASPIRIN 81 MG CHEWABLE TAB PO SCH (09:39)
[2019-01-10] MEDS: INSULIN GLARGINE 100 UNITS/ML UNIT SC SCH ×2 (09:39→21:28)
[2019-01-10] MEDS: INSULIN LISPRO 100 UNIT/ML SC SCH ×3 (09:40→17:49)
[2019-01-10] MEDS: (Lisdexamfetamine Dimesylate [Vyvanse] 40 MG) PO SCH (09:41)
--- NOTE | 2019-01-10 11:35 | SOAPPROG ---
SOAP Progress Note Assessment/Plan: Assessment/Plan: 58 yo woman w APLAS admitted w left leg pain discovered to have occlusion and thrombus involving left common femoral artery 1. Limb ischemia due to acute thrombus - s/p embolectomy w Dr Echevarria appears to be perfusing well today anticoagulated w heparin and warfarin started arteriogram per Dr Echevarria 2. anemia - H/H dropping but no obvious bleeding large left groin hematoma improving if H/H drops further or hypotension recurs would eval for retroperitoneal bleeding 3. APLAS - cont ASA and lovenox transition lovenox to warfarin alone only when INR 2.5 and stable NOACs less effective for APLAS pt did not fail warfarin in past - INR was 1.4 at time of previous clot 4. IDDM 5. Anxiety/depression 01/10/19 11:39 Subjective: Left groin pain chronic numbness in RLE + bruising, denies bleeding denies flank pain Objective: Vital Signs Temp Pulse Resp BP Pulse Ox 36.4 C 79 16 147/69 H 98 01/10/19 04:00 01/10/19 07:30 01/10/19 07:30 01/10/19 07:30 01/10/19 07:30 Microbiology 01/09/19 16:30 - Final Sputum, Expectorated 01/09/19 09:59 Respiratory Panel (PCR) - Final Nasal, Sinus - Swab No Organism Detected By Pcr Laboratory Results 01/10/19 04:15 01/10/19 04:15 01/09/19 01/10/19 01/11/19 05:59 05:59 05:59 Intake Total 6824 4032 Output Total 1000 1910 Balance 5824 2122 PT 14.5 SEC (12.0-15.0) 01/10/19 04:15 INR 1.18 (0.83-1.16) H 01/10/19 04:15 Gen - NAD HEENT - anicteric CV - RRR abd - left groin hematoma improved ext - left AKA, R LE appears well perfused diminished pulses posteriorly ICD10 Worksheet Patient Problems: Problems Problem Status Onset DKA (diabetic ketoacidosis) Acute Mottled skin Acute Right leg pain Acute Abscess Acute Chest pain Acute Methicillin resistant Staphylococcus aureus infection Acute Orthostatic hypotension Acute Urinary tract infection Acute
--- NOTE | 2019-01-10 11:48 | SOAPPROG ---
SOAP Progress Note Assessment/Plan: Assessment/Plan: 58 yo with hx of APS on Xarelto presents with acute r to l cross femoral graft embolus. Profound ischemia and DKA resolving L bka stump warm POD#2 s/p embolectomy Left groin hematoma. Pressure held Received 1 u pRBCs for hypotension Stump warm Groiin hematoma soft. No evidencec of active bleeding right toes with evidence of distal embolization (likely due to embolectomy) palp PT pulse acidosis cleared. glucose 118 sensorium clearing Leucocytosis inflammatory no abx for now Adv diet OOB watch for increasing hematoma L groin Angiogram (CTA) prior to d/c 01/09/19 09:34 01/10/19 11:45 Objective: Vital Signs Temp Pulse Resp BP Pulse Ox 36.4 C 79 16 147/69 H 98 01/10/19 04:00 01/10/19 07:30 01/10/19 07:30 01/10/19 07:30 01/10/19 07:30 Microbiology 01/09/19 16:30 - Final Sputum, Expectorated 01/09/19 09:59 Respiratory Panel (PCR) - Final Nasal, Sinus - Swab No Organism Detected By Pcr Laboratory Results 01/10/19 04:15 01/10/19 04:15 01/09/19 01/10/19 01/11/19 05:59 05:59 05:59 Intake Total 6824 4032 Output Total 1000 1910 Balance 5824 2122 PT 14.5 SEC (12.0-15.0) 01/10/19 04:15 INR 1.18 (0.83-1.16) H 01/10/19 04:15 ICD10 Worksheet Patient Problems: Problems Problem Status Onset DKA (diabetic ketoacidosis) Acute Mottled skin Acute Right leg pain Acute Abscess Acute Chest pain Acute Methicillin resistant Staphylococcus aureus infection Acute Orthostatic hypotension Acute Urinary tract infection Acute
--- NOTE | 2019-01-10 15:09 | PDINTPN ---
Accountant Bookkeeper Progress Note Assessment/Plan: 58 F with history of APS complicated by acute limb ischemia in previously amputated distal LE and despite Xarelto. She underwent urgent embolectomy 01/08 involving fem-fem bypass graft and superficial femoral and deep femoral arteries. She has since transitioned to warfarin and UFH with no bleeding, though she does have a hematoma near her incision site. * Acute thrombus with presumed Xarelto failure in setting of APS. * DKA - resolved * HTN- controlled with prn labetalol * Subjective: c/o ongoing pain in thigh with little relief from multiple medications Objective: Vital Signs Temp Pulse Resp BP Pulse Ox 37 C 96 14 109/68 97 01/10/19 12:00 01/10/19 14:00 01/10/19 14:00 01/10/19 14:00 01/10/19 14:00 Microbiology 01/09/19 16:30 - Final Sputum, Expectorated 01/09/19 09:59 Respiratory Panel (PCR) - Final Nasal, Sinus - Swab No Organism Detected By Pcr Laboratory Results 01/10/19 04:15 01/10/19 04:15 01/09/19 01/10/19 01/11/19 05:59 05:59 05:59 Intake Total 6824 4032 Output Total 1000 1910 Balance 5824 2122 PT 14.5 SEC (12.0-15.0) 01/10/19 04:15 INR 1.18 (0.83-1.16) H 01/10/19 04:15 Physical Exam - Physical Exam General Appearance: WD/WN, alert, obese EENT: PERRL/EOMI Neck: supple Respiratory: lungs clear, normal breath sounds, decreased breath sounds, No respiratory distress, No accessory muscle use Cardiac/Chest: regular rate, rhythm, No edema Abdomen: non-tender, soft, No distended Skin: normal color, warm/dry, other (small hematoma at LLE incision site), No cyanosis Lymphatic: no adenopathy Extremities: No pedal edema Neuro/Psych: alert, normal mood/affect, oriented x 3 ICD10 Worksheet Patient Problems: Problems Problem Status Onset DKA (diabetic ketoacidosis) Acute Mottled skin Acute Right leg pain Acute Abscess Acute Chest pain Acute Methicillin resistant Staphylococcus aureus infection Acute Orthostatic hypotension Acute Urinary tract infection Acute
[2019-01-10] MEDS ORDERED: traMADol 50 MG TAB PO PRN (15:10)
[2019-01-10] MEDS ORDERED: WARFARIN SODIUM 5 MG TAB PO ONE (16:00)
--- NOTE | 2019-01-10 17:32 | CPEKG ---
Test Reason : OPEN Blood Pressure : / mmHG Vent. Rate : 119 BPM Atrial Rate : 119 BPM P-R Int : 090 ms QRS Dur : 120 ms QT Int : 407 ms P-R-T Axes : 262 -64 072 degrees QTc Int : 573 ms Sinus or ectopic atrial tachycardia Incomplete left bundle branch block Inferior infarct, old Confirmed by Jamila Paris [id number] on 01/10/2019 5:31:44 PM Referred By: Jamila Paris Confirmed By:Jamila Paris
[2019-01-10] MEDS: ACETAMINOPHEN 325 MG TAB PO PRN (18:06)
[2019-01-10] MEDS ORDERED: POTASSIUM Cl (KCl) 50 ML IV ONE (19:49)
[2019-01-10] MEDS: ATORVASTATIN CALCIUM 20 MG TAB PO SCH (21:29)
[2019-01-11] MEDS: oxyCODONE IR 5 MG TAB PO PRN ×4 (02:26→23:18)
[2019-01-11] MEDS: LEVOTHYROXINE 112 MCG TAB PO SCH ×2 (02:51→05:11)
[2019-01-11] MEDS: HYDROmorphONE/DILAUDID 1 MG/ML INJ IVP PRN ×5 (05:01→19:25)
[2019-01-11] MEDS: ENOXAPARIN 100 MG/ML SYR SC SCH ×2 (05:02→15:28)
[2019-01-11 05:32] LABS: INR 1.74 (0.83-1.16); PROTIME(PATIENT) 19.5 SEC (12.0-15.0)
[2019-01-11] MEDS ORDERED: POTASSIUM Cl (KCl) 50 ML IV ONE ×2 (07:26→21:36)
[2019-01-11] MEDS: D50W 25 GM/50 ML SYR IVP PRN (08:19)
[2019-01-11] MEDS ORDERED: ACETAMINOPHEN 325 MG TAB PO ONE (09:30)
[2019-01-11] MEDS: VENLAFAXINE XR 150 MG CAP PO SCH (09:39)
[2019-01-11] MEDS: PREGABALIN 75 MG CAP PO SCH ×3 (09:39→22:08)
[2019-01-11] MEDS: ASPIRIN 81 MG CHEWABLE TAB PO SCH (09:39)
[2019-01-11] MEDS: AZITHROMYCIN 250 MG TAB PO SCH (09:39)
[2019-01-11] MEDS ORDERED: IOPAMIDOL (ISOVUE-370) 150 ML BTL IV ONE (10:48)
[2019-01-11] MEDS ORDERED: INSULIN GLARGINE 100 UNITS/ML UNIT SC SCH ×2 (10:55→10:56)
[2019-01-11] MEDS ORDERED: D5W 1,000 ML IV SCH (12:30)
[2019-01-11] MEDS: INSULIN LISPRO 100 UNIT/ML SC SCH ×2 (12:30→18:38)
[2019-01-11] MEDS: (Lisdexamfetamine Dimesylate [Vyvanse] 40 MG) PO SCH (12:38)
--- NOTE | 2019-01-11 13:02 | SOAPPROG ---
SOAP Progress Note Assessment/Plan: Assessment/Plan: 58 yo with hx of APS on Xarelto presents with acute r to l cross femoral graft embolus. Profound ischemia and DKA resolved C/o left groin pain (not left hip) L bka stump warm Palpable PT pulse right POD#3 s/p embolectomy Stump warm Groin hematoma soft. No evidence of active bleeding right toes with evidence of distal embolization (likely due to embolectomy) palp PT pulse acidosis cleared. glucose 118 sensorium clearing Leucocytosis inflammatory no abx for now Adv diet OOB watch for increasing hematoma L groin Angiogram (CTA) done official read pending Psoas and groin hematoma L, good run-off mesenteric and graft stenosis Transfuse 2 units today May go to floor status tomorrow if all remains stable 01/09/19 09:34 01/10/19 11:45 01/11/19 12:59 Objective: Vital Signs Temp Pulse Resp BP Pulse Ox 37.0 C 99 15 125/73 H 96 01/11/19 04:00 01/11/19 06:00 01/11/19 06:00 01/11/19 06:00 01/11/19 06:00 Microbiology 01/09/19 16:30 - Final Sputum, Expectorated Laboratory Results 01/11/19 05:10 01/11/19 05:10 01/10/19 01/11/19 01/12/19 05:59 05:59 05:59 Intake Total 4032 4872 Output Total 1910 1225 Balance 2122 3647 PT 19.5 SEC (12.0-15.0) H 01/11/19 05:10 INR 1.74 (0.83-1.16) H 01/11/19 05:10 ICD10 Worksheet Patient Problems: Problems Problem Status Onset DKA (diabetic ketoacidosis) Acute Mottled skin Acute Right leg pain Acute Abscess Acute Chest pain Acute Methicillin resistant Staphylococcus aureus infection Acute Orthostatic hypotension Acute Urinary tract infection Acute
[2019-01-11] MEDS: INSULIN GLARGINE 100 UNITS/ML UNIT SC SCH (13:36)
--- NOTE | 2019-01-11 14:25 | SOAPPROG ---
SOAP Progress Note Assessment/Plan: Assessment/Plan: 58 yo woman w APLAS admitted w left leg pain discovered to have occlusion and thrombus involving left common femoral artery 1. Limb ischemia due to acute thrombus - s/p embolectomy w Dr Echevarria continues to be perfusing well today anticoagulated w LMWH and warfarin started aorta CTA w runoff pending today 2. anemia - H/H dropping but no obvious bleeding large left groin hematoma seems worse today agree w blood today 3. APLAS - cont ASA and lovenox transition lovenox to warfarin alone only when INR 2.5 and stable NOACs less effective for APLAS and would NOT recommend pt did not fail warfarin in past - INR was 1.4 at time of previous clot 4. IDDM -DKA resolved 5. Anxiety/depression 01/11/19 14:23 Subjective: A lot of pain today in left groin Objective: Vital Signs Temp Pulse Resp BP Pulse Ox 37.0 C 99 15 125/73 H 96 01/11/19 04:00 01/11/19 06:00 01/11/19 06:00 01/11/19 06:00 01/11/19 06:00 Microbiology 01/09/19 16:30 - Final Sputum, Expectorated Laboratory Results 01/11/19 05:10 01/11/19 05:10 01/10/19 01/11/19 01/12/19 05:59 05:59 05:59 Intake Total 4032 4872 Output Total 1910 1225 Balance 2122 3647 PT 19.5 SEC (12.0-15.0) H 01/11/19 05:10 INR 1.74 (0.83-1.16) H 01/11/19 05:10 Gen - NAD CV - RRR Abd/pelvis - left groin hematoma Ext - well perfused on RLE ICD10 Worksheet Patient Problems: Problems Problem Status Onset DKA (diabetic ketoacidosis) Acute Mottled skin Acute Right leg pain Acute Abscess Acute Chest pain Acute Methicillin resistant Staphylococcus aureus infection Acute Orthostatic hypotension Acute Urinary tract infection Acute
--- NOTE | 2019-01-11 14:55 | HOSPPROG ---
Hospitalist Progress Note Assessment/Plan: 58 yo F w APS and dm a.w DKA and limb threatening ischemia 2/2 femoral artery clot limb ischemia: Hx of APS on Xarelto, presented with Acute R to L cross femoral graft embolus POD#3, s/p emergent surgical thrombectomy lovenox/aspirin with plan to transition to only Coumadin when INR >2.5 per Hematology Anemia: Presence of groin hematoma - Hgb 7.7 this AM, discussed with surgery, plan for 2 units PRBCs today - CT A/P ordered by surgery this AM, report pending - Continue to monitor H/H, transfuse as needed APS; failed DOAC (was on Xarelto), also had clot on Coumadin however per hematology INR 1.4 at that time LMWH to warfarin plus aspirin DKA: 2/2 above S/p DKA protocol Had episode of hypoglycemia, Glucose 30's this AM Will decrease home insulin, 22 units qAM (27), 10 units qPM (15) S/p D50 with repeat glucose 50's, will give D5W for 4 hours to maintain normal glucose level Continue to monitor BG closely R hip pain: Hip XR negative for acute abnormality on 01/09 HTN: Holding home BP meds, Amlodipine and Metoprolol, in setting of hypotension TRUDY: improving, Cr 1.3 this AM, 2.0 on admission, baseline appears 1.0-1.3 holding home Lisinopril Continue to monitor Cr, I/O, avoid nephrotoxic agents pyuria: no irritative voiding sx, UA negative for LE or Nitrate, on ceftriaxone as below purulent sputum: On abx including Ceftriaxone (plan for 5 day course), Azithromycin (plan for 3 day course) proph: anticoagulated with Lovenox and Coumadin bridge dispo: Pending clinical course Objective: Vital Signs Temp Pulse Resp BP Pulse Ox 37.0 C 99 15 125/73 H 96 01/11/19 04:00 01/11/19 06:00 01/11/19 06:00 01/11/19 06:00 01/11/19 06:00 Microbiology 01/09/19 16:30 - Final Sputum, Expectorated Laboratory Results 01/11/19 05:10 01/11/19 05:10 01/10/19 01/11/19 01/12/19 05:59 05:59 05:59 Intake Total 4032 4872 Output Total 7240 1225 Balance 2122 3647 PT 19.5 SEC (12.0-15.0) H 01/11/19 05:10 INR 1.74 (0.83-1.16) H 01/11/19 05:10 ICD10 Worksheet Patient Problems: Problems Problem Status Onset DKA (diabetic ketoacidosis) Acute Mottled skin Acute Right leg pain Acute Abscess Acute Chest pain Acute Methicillin resistant Staphylococcus aureus infection Acute Orthostatic hypotension Acute Urinary tract infection Acute
[2019-01-11] MEDS ORDERED: WARFARIN SODIUM 7.5 MG TAB PO ONE (16:00)
--- NOTE | 2019-01-11 16:14 | PDINTPN ---
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 She underwent urgent embolectomy 01/08 involving fem-fem bypass graft and superficial femoral and deep femoral arteries. She has since transitioned to warfarin and UFH with no bleeding, though she does have a hematoma near her incision site. * Acute thrombus with presumed Xarelto failure in setting of APS. CTA with runoff today shows high grade (70-80) stenosis at origin of SFA down from the surgical anastomosis. There is also a left iliopsoas and left groin moderate hematoma. Currently anticoagulated with LMWH/warfarin. Further intervention per surgery. Not clear about abx indication and remains on CTX/zithro * DKA - resolved * HTN- controlled with prn labetalol * Subjective: stable overnight with ongoing groin pain Objective: Vital Signs Temp Pulse Resp BP Pulse Ox 36.8 C 90 17 122/81 H 99 01/11/19 16:00 01/11/19 16:00 01/11/19 16:00 01/11/19 16:00 01/11/19 16:00 Microbiology 01/09/19 16:30 - Final Sputum, Expectorated Laboratory Results 01/11/19 05:10 01/11/19 05:10 01/10/19 01/11/19 01/12/19 05:59 05:59 05:59 Intake Total 4032 4872 Output Total 1910 1225 Balance 2122 3647 PT 19.5 SEC (12.0-15.0) H 01/11/19 05:10 INR 1.74 (0.83-1.16) H 01/11/19 05:10 Physical Exam - Physical Exam General Appearance: WD/WN, alert, no apparent distress EENT: PERRL/EOMI Neck: supple Respiratory: lungs clear, normal breath sounds, decreased breath sounds, No respiratory distress, No accessory muscle use Cardiac/Chest: regular rate, rhythm, No edema Abdomen: non-tender, soft, No distended Skin: normal color, warm/dry, No cyanosis Lymphatic: no adenopathy Extremities: No pedal edema Neuro/Psych: alert, normal mood/affect, oriented x 3 ICD10 Worksheet Patient Problems: Problems Problem Status Onset DKA (diabetic ketoacidosis) Acute Mottled skin Acute Right leg pain Acute Abscess Acute Chest pain Acute Methicillin resistant Staphylococcus aureus infection Acute Orthostatic hypotension Acute Urinary tract infection Acute
[2019-01-11] MEDS ORDERED: diphenhydrAMINE 25 MG CAP PO PRN (19:09)
[2019-01-11] MEDS: ACETAMINOPHEN 325 MG TAB PO PRN (19:25)
[2019-01-11] MEDS: ATORVASTATIN CALCIUM 20 MG TAB PO SCH (22:08)
[2019-01-12] MEDS: POTASSIUM Cl (KCl) 50 ML IV SCH ×5 (03:38→11:38)
[2019-01-12] MEDS: ENOXAPARIN 100 MG/ML SYR SC SCH (04:34)
[2019-01-12] MEDS: LEVOTHYROXINE 112 MCG TAB PO SCH (04:36)
[2019-01-12] MEDS: oxyCODONE IR 5 MG TAB PO PRN ×4 (04:36→19:19)
[2019-01-12 07:10] LABS: INR 3.69 (0.83-1.16); PROTIME(PATIENT) 34.7 SEC (12.0-15.0)
[2019-01-12] MEDS: D50W 25 GM/50 ML SYR IVP PRN (07:39)
[2019-01-12] MEDS: INSULIN LISPRO 100 UNIT/ML SC SCH ×3 (07:47→17:48)
[2019-01-12] MEDS: PREGABALIN 75 MG CAP PO SCH ×3 (08:10→21:06)
[2019-01-12] MEDS: (Lisdexamfetamine Dimesylate [Vyvanse] 40 MG) PO SCH (08:27)
[2019-01-12] MEDS: AZITHROMYCIN 250 MG TAB PO SCH (08:51)
[2019-01-12] MEDS ORDERED: INSULIN GLARGINE 100 UNITS/ML UNIT SC SCH (09:00)
[2019-01-12] MEDS: INSULIN GLARGINE 100 UNITS/ML UNIT SC SCH ×2 (09:45→21:06)
[2019-01-12] MEDS: ASPIRIN 81 MG CHEWABLE TAB PO SCH (09:45)
[2019-01-12] MEDS: VENLAFAXINE XR 150 MG CAP PO SCH (09:45)
[2019-01-12] MEDS ORDERED: PROTOCOL POTASSIUM 1 DOSE MISC PRN (11:07)
[2019-01-12] MEDS ORDERED: BISACODYL 10 MG SUPP PR PRN (11:08)
[2019-01-12] MEDS ORDERED: POLYETHYLENE GLYCOL 3350 17 GM PKT PO PRN (11:08)
[2019-01-12] MEDS ORDERED: LACTULOSE 20 GM/30 ML UDCUP PO PRN (11:08)
[2019-01-12] MEDS ORDERED: MAGNESIUM HYDROXIDE 30 ML UDCUP PO PRN (11:08)
[2019-01-12] MEDS: LIDOCAINE 4%/MENTHOL 1% PATCH TD SCH (11:39)
[2019-01-12] MEDS: HYDROmorphONE/DILAUDID 1 MG/ML INJ IVP PRN ×3 (11:58→21:15)
[2019-01-12] MEDS: ACETAMINOPHEN 500 MG TAB PO SCH ×2 (11:59→21:04)
--- NOTE | 2019-01-12 13:55 | SOAPPROG ---
SOAP Progress Note Assessment/Plan: Assessment/Plan: 58 yo with hx of APS on Xarelto presents with acute r to l cross femoral graft embolus. Profound ischemia and DKA resolved C/o left groin pain (not left hip) L bka stump warm Palpable PT pulse right POD#4 s/p embolectomy Stump warm Groin hematoma soft. No evidence of active bleeding right toes with evidence of distal embolization (likely due to embolectomy) palp PT pulse acidosis cleared. glucose 118 sensorium clearing Leucocytosis inflammatory no abx for now Adv diet OOB watch for increasing hematoma L groin Angiogram (CTA) done official read pending Psoas and groin hematoma L, good run-off mesenteric and graft stenosis Transfuse 2 units today May go to floor status 01/09/19 09:34 01/10/19 11:45 01/11/19 12:59 01/12/19 13:55 Objective: Vital Signs Temp Pulse Resp BP Pulse Ox 37.1 C 97 18 165/83 H 94 01/12/19 11:42 01/12/19 11:42 01/12/19 11:42 01/12/19 11:42 01/12/19 11:42 Microbiology 01/09/19 16:30 - Final Sputum, Expectorated Sputum Culture - Final Laboratory Results 01/12/19 08:15 01/12/19 06:20 01/11/19 01/12/19 01/13/19 05:59 05:59 05:59 Intake Total 4872 5491 2168 Output Total 1225 3850 1800 Balance 3647 1641 368 PT 34.7 SEC (12.0-15.0) H 01/12/19 06:20 INR 3.69 (0.83-1.16) H 01/12/19 06:20 ICD10 Worksheet Patient Problems: Problems Problem Status Onset DKA (diabetic ketoacidosis) Acute Mottled skin Acute Right leg pain Acute Abscess Acute Chest pain Acute Methicillin resistant Staphylococcus aureus infection Acute Orthostatic hypotension Acute Urinary tract infection Acute
[2019-01-12] MEDS ORDERED: ACETAMINOPHEN 500 MG TAB PO SCH (14:00)
--- NOTE | 2019-01-12 14:00 | SOAPPROG ---
SOSANTOSH Progress Note Assessment/Plan: Assessment/Plan: 58 yo woman w APLAS admitted w left leg pain discovered to have occlusion and thrombus involving left common femoral artery 1. Limb ischemia due to acute thrombus - s/p embolectomy w Dr Echevarria continues to be perfusing well today anticoagulated w LMWH and warfarin aorta CTA w runoff reviewed 2. anemia - H/H dropping but no obvious bleeding large left groin hematoma seems worse today agree w blood today 3. APLAS - cont ASA and lovenox transition to warfarin alone now that INR >2.5 would follow INT tomorrow NOACs less effective for APLAS and would NOT recommend pt did not fail warfarin in past - INR was 1.4 at time of previous clot will arrange outpt followup 4. IDDM -DKA resolved 5. Anxiety/depression 6. Pain 01/12/19 13:57 Subjective: Pain better today less dizzy s/p blood Objective: Vital Signs Temp Pulse Resp BP Pulse Ox 37.1 C 97 18 165/83 H 94 01/12/19 11:42 01/12/19 11:42 01/12/19 11:42 01/12/19 11:42 01/12/19 11:42 Microbiology 01/09/19 16:30 - Final Sputum, Expectorated Sputum Culture - Final Laboratory Results 01/12/19 08:15 01/12/19 06:20 01/11/19 01/12/19 01/13/19 05:59 05:59 05:59 Intake Total 4872 5491 2168 Output Total 1225 3850 1800 Balance 3647 1641 368 PT 34.7 SEC (12.0-15.0) H 01/12/19 06:20 INR 3.69 (0.83-1.16) H 01/12/19 06:20 Gen - NAD CV - RRR Abd - obese ext - left groin improved R distal extremity warm w faint DP pulse ICD10 Worksheet Patient Problems: Problems Problem Status Onset DKA (diabetic ketoacidosis) Acute Mottled skin Acute Right leg pain Acute Abscess Acute Chest pain Acute Methicillin resistant Staphylococcus aureus infection Acute Orthostatic hypotension Acute Urinary tract infection Acute
--- NOTE | 2019-01-12 15:00 | PDINTPN ---
Curtain Worker Progress Note Assessment/Plan: 58 F with history of APS complicated by acute limb ischemia in previously amputated distal LE and despite Xarelto. She underwent urgent embolectomy 01/08 involving fem-fem bypass graft and superficial femoral and deep femoral arteries. She has since transitioned to warfarin and UFH with no bleeding, though she does have a hematoma near her incision site. * Acute thrombus with presumed Xarelto failure in setting of APS. CTA with runoff today shows high grade (70-80) stenosis at origin of SFA down from the surgical anastomosis. There is also a left iliopsoas and left groin moderate hematoma. Currently anticoagulated with LMWH/warfarin. Further intervention per surgery. Not clear about abx indication and remains on CTX/zithro. Added scheduled tylenol and lidocaine patch today for pain. * DKA - resolved * HTN- controlled with prn labetalol * OK for floor 01/12/19 14:59 Subjective: stable overnight but complains of ongoing pain Objective: Vital Signs Temp Pulse Resp BP Pulse Ox 37.1 C 97 18 165/83 H 94 01/12/19 11:42 01/12/19 11:42 01/12/19 11:42 01/12/19 11:42 01/12/19 11:42 Microbiology 01/09/19 16:30 - Final Sputum, Expectorated Sputum Culture - Final Laboratory Results 01/12/19 08:15 01/12/19 06:20 01/11/19 01/12/19 01/13/19 05:59 05:59 05:59 Intake Total 4872 5491 2168 Output Total 1225 3850 1800 Balance 3647 1641 368 PT 34.7 SEC (12.0-15.0) H 01/12/19 06:20 INR 3.69 (0.83-1.16) H 01/12/19 06:20 Physical Exam - Physical Exam General Appearance: alert, no apparent distress EENT: PERRL/EOMI Neck: supple Respiratory: lungs clear, normal breath sounds, decreased breath sounds, No respiratory distress, No accessory muscle use Cardiac/Chest: regular rate, rhythm, No edema Abdomen: non-tender, soft, No distended Skin: normal color, warm/dry, No cyanosis Lymphatic: no adenopathy Extremities: No pedal edema Neuro/Psych: alert, normal mood/affect, oriented x 3 ICD10 Worksheet Patient Problems: Problems Problem Status Onset DKA (diabetic ketoacidosis) Acute Mottled skin Acute Right leg pain Acute Abscess Acute Chest pain Acute Methicillin resistant Staphylococcus aureus infection Acute Orthostatic hypotension Acute Urinary tract infection Acute
--- NOTE | 2019-01-12 15:30 | ASMTCMCOM ---
CM Note CM Note Notes: Met with pt. She currently has [facility] mechanical maintenance engineer Christopher ([phone]). CM left message attempting to arrange services for pt for dc. at this time PT/OT recommending HHC. CM to follow. Plan: needs coordination of HomeCare through [facility] Date Signed: 01/12/2019 03:29 PM Electronically Signed By:CHIP Beach
--- NOTE | 2019-01-12 15:37 | HOSPPROG ---
Hospitalist Progress Note Assessment/Plan: 58 yo F w APS and dm a.w DKA and limb threatening ischemia 2/2 femoral artery clot limb ischemia: Hx of APS on Xarelto, presented with Acute R to L cross femoral graft embolus POD#4, s/p emergent surgical thrombectomy Was being bridged to coumadin with Lovenox, INR 3.69 this AM from 1.7 yesterday, will hold coumadin today, repeat INR tomorrow, redose Coumadin as needed to maintain INR 2.5-3.5 Anemia: Presence of groin hematoma - Hgb 7.7 on 01/11, discussed with surgery, s/p 2 units PRBCs - CT A/P ordered by surgery on 01/11, showing moderate L iliopsoas hematoma, L groin hematoma - Continue to monitor H/H, transfuse as needed APS; failed DOAC (was on Xarelto), also had clot on Coumadin however per hematology INR 1.4 at that time Coumadin as above DKA: 2/2 above S/p DKA protocol Had episode of hypoglycemia, Glucose 40's this AM, 30's yesterday AM Decrease home insulin, 22 units qAM (27), 10 units qPM (15) yesterday, will decrease further to 10 units qAM, 5 units qPM, check 2 AM BG Continue to monitor BG closely R hip pain: Hip XR negative for acute abnormality on 01/09 HTN: Holding home BP meds, Amlodipine and Metoprolol, in setting of hypotension TRUDY: improving, Cr 1.3 on 01/11, 2.0 on admission, baseline appears 1.0-1.3 holding home Lisinopril Continue to monitor Cr, I/O, avoid nephrotoxic agents pyuria: no irritative voiding sx, UA negative for LE or Nitrate, on ceftriaxone as below purulent sputum: On abx including Ceftriaxone (plan for 5 day course), Azithromycin (plan for 3 day course) proph: anticoagulated with Coumadin dispo: Pending clinical course Subjective: Pt reporting significant pain in lower extremity Objective: Vital Signs Temp Pulse Resp BP Pulse Ox 37.1 C 97 18 165/83 H 94 01/12/19 11:42 01/12/19 11:42 01/12/19 11:42 01/12/19 11:42 01/12/19 11:42 Microbiology 01/09/19 16:30 - Final Sputum, Expectorated Sputum Culture - Final Laboratory Results 01/12/19 08:15 01/12/19 06:20 01/11/19 01/12/19 01/13/19 05:59 05:59 05:59 Intake Total 4872 5491 2168 Output Total 1225 3850 1800 Balance 3647 1641 368 PT 34.7 SEC (12.0-15.0) H 01/12/19 06:20 INR 3.69 (0.83-1.16) H 01/12/19 06:20 - Physical Exam Constitutional: uncomfortable Eyes: PERRL Ears, Nose, Mouth, Throat: moist mucous membranes Cardiovascular: regular rate and rhythym Respiratory: no respiratory distress Gastrointestinal: normoactive bowel sounds Skin: warm Musculoskeletal: pain with ROM Neurologic: AAOx3 Psychiatric: interacting appropriately ICD10 Worksheet Patient Problems: Problems Problem Status Onset DKA (diabetic ketoacidosis) Acute Mottled skin Acute Right leg pain Acute Abscess Acute Chest pain Acute Methicillin resistant Staphylococcus aureus infection Acute Orthostatic hypotension Acute Urinary tract infection Acute
[2019-01-12] MEDS ORDERED: POTASSIUM CL 10 MEQ TAB PO ONE (18:27)
[2019-01-12] MEDS: SENNOSIDES/DOCUSATE SODIUM TAB PO SCH (19:51)
[2019-01-12] MEDS: ATORVASTATIN CALCIUM 20 MG TAB PO SCH (21:04)
[2019-01-12] MEDS: PATCH REMOVAL 1 EA PATCH TD SCH (21:05)
[2019-01-13] MEDS: oxyCODONE IR 5 MG TAB PO PRN ×4 (01:10→19:45)
[2019-01-13] MEDS: HYDROmorphONE/DILAUDID 1 MG/ML INJ IVP PRN ×2 (02:13→14:46)
[2019-01-13] MEDS: LEVOTHYROXINE 112 MCG TAB PO SCH (04:04)
[2019-01-13] MEDS: ACETAMINOPHEN 500 MG TAB PO SCH ×3 (04:04→19:46)
[2019-01-13 05:10] LABS: INR 2.58 (0.83-1.16); PROTIME(PATIENT) 26.4 SEC (12.0-15.0)
[2019-01-13] MEDS ORDERED: POTASSIUM CL 10 MEQ TAB PO ONE ×2 (07:21→22:53)
[2019-01-13] MEDS: SENNOSIDES/DOCUSATE SODIUM TAB PO SCH ×2 (08:01→19:47)
[2019-01-13] MEDS: ASPIRIN 81 MG CHEWABLE TAB PO SCH (08:01)
[2019-01-13] MEDS: INSULIN LISPRO 100 UNIT/ML SC SCH ×3 (08:01→17:32)
[2019-01-13] MEDS: VENLAFAXINE XR 150 MG CAP PO SCH (08:02)
[2019-01-13] MEDS: PREGABALIN 75 MG CAP PO SCH ×2 (08:02→15:30)
[2019-01-13] MEDS: LIDOCAINE 4%/MENTHOL 1% PATCH TD SCH (08:02)
[2019-01-13] MEDS: INSULIN GLARGINE 100 UNITS/ML UNIT SC SCH ×2 (08:14→21:40)
--- NOTE | 2019-01-13 13:28 | PDINTPN ---
Industrial Green Systems Designer Progress Note Assessment/Plan: 58 F with history of APS complicated by acute limb ischemia in previously amputated distal LE and despite Xarelto. She underwent urgent embolectomy 01/08 involving fem-fem bypass graft and superficial femoral and deep femoral arteries. She has since transitioned to warfarin and UFH with no bleeding, though she does have a hematoma near her incision site. * Acute thrombus with presumed Xarelto failure in setting of APS. CTA with runoff 01/11 shows high grade (70-80) stenosis at origin of SFA down from the surgical anastomosis. There is also a left iliopsoas and left groin moderate hematoma. Currently anticoagulated with LMWH/warfarin. Not clear about abx indication and remains on CTX/zithro. Added scheduled tylenol and lidocaine patch 01/12 with improvement. * anemia- possibly related to hematomas. transfused 01/11 for Hct 22.6 with appropriate rise; now back down to 20.8 and on anticoagulation. Not likely dilutional. Transfuse 2 units now given HR variation (BP stable) and continue to observe. * DKA - resolved * HTN- was controlled but qdditional meds needed today * OK for floor 01/12/19 14:59 01/13/19 13:23 Subjective: pain improved Objective: Vital Signs Temp Pulse Resp BP Pulse Ox 36.8 C 99 13 177/85 H 96 01/13/19 11:11 01/13/19 11:11 01/13/19 11:11 01/13/19 11:11 01/13/19 11:11 Microbiology 01/09/19 16:30 - Final Sputum, Expectorated Sputum Culture - Final Laboratory Results 01/13/19 04:10 01/13/19 04:10 01/12/19 01/13/19 01/14/19 05:59 05:59 05:59 Intake Total 5491 3768 750 Output Total 3850 4300 950 Balance 1641 -532 -200 PT 26.4 SEC (12.0-15.0) H 01/13/19 04:10 INR 2.58 (0.83-1.16) H 01/13/19 04:10 Physical Exam - Physical Exam General Appearance: WD/WN, alert, no apparent distress EENT: PERRL/EOMI Neck: supple Respiratory: lungs clear, normal breath sounds, decreased breath sounds, No respiratory distress, No accessory muscle use Cardiac/Chest: regular rate, rhythm, edema, No JVD Abdomen: non-tender, soft, No distended Skin: normal color, warm/dry, No cyanosis Lymphatic: no adenopathy Extremities: No pedal edema Neuro/Psych: alert, normal mood/affect, oriented x 3 ICD10 Worksheet Patient Problems: Problems Problem Status Onset DKA (diabetic ketoacidosis) Acute Abscess Acute Chest pain Acute Methicillin resistant Staphylococcus aureus infection Acute Orthostatic hypotension Acute Urinary tract infection Acute
--- NOTE | 2019-01-13 14:49 | ASMTCMCOM ---
CM Note CM Note Notes: CM spoke to ross furnace operator at 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 Pt reports that she worked with [facility] before. CM made a referral to [facility]. CM to follow. Plan: [facility] Date Signed: 01/13/2019 02:48 PM Electronically Signed By:Bella Bergman
--- NOTE | 2019-01-13 15:56 | HOSPPROG ---
Hospitalist Progress Note Assessment/Plan: 58 yo F w APS and dm a.w DKA and limb threatening ischemia 2/2 femoral artery clot limb ischemia: Hx of APS on Xarelto, presented with Acute R to L cross femoral graft embolus POD#5, s/p emergent surgical thrombectomy Was being bridged to coumadin with Lovenox, INR 3.69 on 01/12 from 1.7 on 01/11 , held coumadin yesterday, INR 2.58 this AM, redose Coumadin today to maintain INR 2.5-3.5 Anemia: Presence of groin hematoma - Hgb 7.7 on 01/11, discussed with surgery, s/p 2 units PRBCs - CT A/P ordered by surgery on 01/11, showing moderate L iliopsoas hematoma, L groin hematoma - Hgb 7.3 this AM, will repeat this afternoon - Continue to monitor H/H, transfuse as needed APS; failed DOAC (was on Xarelto), also had clot on Coumadin however per hematology INR 1.4 at that time Coumadin as above DKA: 2/2 above S/p DKA protocol Had episode of hypoglycemia, Glucose 40's this AM, 30's yesterday AM Decrease home insulin, 22 units qAM (27), 10 units qPM (15) on 01/11, decreased further to 10 units qAM, 5 units qPM on 01/12, titrate back up as patient eats more Continue to monitor BG closely R hip pain: Hip XR negative for acute abnormality on 01/09 HTN: Restarted home Amlodipine 2.5 mg this AM due to SBP 170's TRUDY: improving, Cr 1.3 on 01/11, 2.0 on admission, baseline appears 1.0-1.3 holding home Lisinopril Continue to monitor Cr, I/O, avoid nephrotoxic agents pyuria: no irritative voiding sx, UA negative for LE or Nitrate, on ceftriaxone as below purulent sputum: On abx including Ceftriaxone (plan for 5 day course, Day 12/17), Azithromycin (s/p 3 day course) proph: anticoagulated with Coumadin dispo: Pending clinical course Subjective: Pt reports pain but improved since yesterday Objective: Vital Signs Temp Pulse Resp BP Pulse Ox 36.8 C 99 13 177/85 H 96 01/13/19 11:11 05/02/19 11:11 01/13/19 11:11 01/13/19 11:11 01/13/19 11:11 Microbiology 01/09/19 16:30 - Final Sputum, Expectorated Sputum Culture - Final Laboratory Results 01/13/19 04:10 01/13/19 04:10 01/12/19 01/13/19 01/14/19 05:59 05:59 05:59 Intake Total 5491 3768 750 Output Total 3850 4300 950 Balance 1641 -532 -200 PT 26.4 SEC (12.0-15.0) H 01/13/19 04:10 INR 2.58 (0.83-1.16) H 01/13/19 04:10 - Physical Exam Constitutional: no apparent distress Eyes: PERRL Ears, Nose, Mouth, Throat: moist mucous membranes Cardiovascular: regular rate and rhythym Respiratory: no respiratory distress Gastrointestinal: soft, non-tender abdomen Skin: warm Musculoskeletal: pain with ROM Neurologic: AAOx3 Psychiatric: interacting appropriately ICD10 Worksheet Patient Problems: Problems Problem Status Onset DKA (diabetic ketoacidosis) Acute Abscess Acute Chest pain Acute Methicillin resistant Staphylococcus aureus infection Acute Orthostatic hypotension Acute Urinary tract infection Acute
[2019-01-13] MEDS ORDERED: WARFARIN SODIUM 5 MG TAB PO ONE (16:00)
--- NOTE | 2019-01-13 19:37 | SOAPPROG ---
SOAP Progress Note Assessment/Plan: Assessment/Plan: 58 yo with hx of APS on Xarelto presents with acute r to l cross femoral graft embolus. Profound ischemia and DKA resolved C/o left groin pain (not left hip) L bka stump warm Palpable PT pulse right Hbg 7.3 INR 2.8 POD#5 s/p embolectomy Stump warm Groin hematoma soft. No evidence of active bleeding right toes with evidence of distal embolization (likely due to embolectomy) palp PT pulse acidosis cleared. glucose 118 sensorium clearing Leucocytosis resolved Adv diet OOB watch for increasing hematoma L groin Angiogram (CTA) done official read no acute bleeding L groin Psoas and groin hematoma L, good run-off mesenteric and graft stenosis Transfuse 2 units today May go to floor status 01/09/19 09:34 01/10/19 11:45 01/11/19 12:59 01/12/19 13:55 01/13/19 19:35 Objective: Vital Signs Temp Pulse Resp BP Pulse Ox 36.8 C 92 13 171/91 H 92 01/13/19 16:00 01/13/19 16:00 01/13/19 16:00 01/13/19 16:00 01/13/19 16:00 Laboratory Results 01/13/19 04:10 01/13/19 04:10 01/12/19 01/13/19 01/14/19 05:59 05:59 05:59 Intake Total 5491 3768 1450 Output Total 3850 4300 1925 Balance 1641 -532 -475 PT 26.4 SEC (12.0-15.0) H 01/13/19 04:10 INR 2.58 (0.83-1.16) H 01/13/19 04:10 ICD10 Worksheet Patient Problems: Problems Problem Status Onset DKA (diabetic ketoacidosis) Acute Abscess Acute Chest pain Acute Methicillin resistant Staphylococcus aureus infection Acute Orthostatic hypotension Acute Urinary tract infection Acute
[2019-01-13] MEDS: ATORVASTATIN CALCIUM 20 MG TAB PO SCH (19:46)
[2019-01-13] MEDS: PATCH REMOVAL 1 EA PATCH TD SCH (21:40)
[2019-01-14] MEDS: oxyCODONE IR 5 MG TAB PO PRN ×4 (00:04→21:11)
[2019-01-14] MEDS: PREGABALIN 75 MG CAP PO SCH ×4 (00:08→21:03)
[2019-01-14] MEDS: ACETAMINOPHEN 500 MG TAB PO SCH ×3 (03:59→21:01)
[2019-01-14] MEDS: LEVOTHYROXINE 112 MCG TAB PO SCH (03:59)
[2019-01-14] MEDS ORDERED: hydrALAZINE 25 MG TAB PO PRN (04:20)
[2019-01-14 04:30] LABS: INR 2.02 (0.83-1.16); PROTIME(PATIENT) 21.9 SEC (12.0-15.0)
[2019-01-14] MEDS ORDERED: POTASSIUM CL 10 MEQ TAB PO ONE ×2 (07:36→20:24)
[2019-01-14] MEDS: METOPROLOL TARTRATE 25 MG TAB PO SCH ×2 (08:12→21:02)
[2019-01-14] MEDS: LISINOPRIL 20 MG TAB PO SCH (08:13)
[2019-01-14] MEDS: ASPIRIN 81 MG CHEWABLE TAB PO SCH (08:13)
[2019-01-14] MEDS: INSULIN LISPRO 100 UNIT/ML SC SCH ×3 (08:20→18:29)
[2019-01-14] MEDS ORDERED: LISINOPRIL 40 MG TAB PO SCH (09:00)
[2019-01-14] MEDS: INSULIN GLARGINE 100 UNITS/ML UNIT SC SCH ×2 (09:26→21:02)
[2019-01-14] MEDS: VENLAFAXINE XR 150 MG CAP PO SCH (09:27)
[2019-01-14] MEDS: LIDOCAINE 4%/MENTHOL 1% PATCH TD SCH (09:27)
--- NOTE | 2019-01-14 12:11 | ASMTCMCOM ---
CM Note CM Note Notes: CM spoke to [facility] liaison who stated that they will accept pt for [facility] for PT/OT. Pt agrees to both services in home but refuses RN. Pt not medically stable for discharge at this time, CM will follow. Plan: [facility] PT/OT Date Signed: 01/14/2019 12:10 PM Electronically Signed By:Bella Bergman
--- NOTE | 2019-01-14 12:51 | SOAPPROG ---
SOAP Progress Note Assessment/Plan: Assessment/Plan: 58 yo with hx of APS on Xarelto presents with acute r to l cross femoral graft embolus. Profound ischemia and DKA resolved C/o left groin pain (not left hip) L bka stump warm Palpable PT pulse right Hbg 9.1 INR 2.0 POD#6 s/p embolectomy Stump warm Groin hematoma soft. No evidence of active bleeding right toes with evidence of distal embolization (likely due to embolectomy) palp PT pulse acidosis cleared. glucose 118 sensorium clearing Leucocytosis resolved Adv diet OOB watch for increasing hematoma L groin Angiogram (CTA) done official read no acute bleeding L groin Psoas and groin hematoma L, good run-off mesenteric and prox and distal graft stenosis - will need revision in the distant future May go to floor status. D/C in 48-72 hr 01/09/19 09:34 01/10/19 11:45 01/11/19 12:59 01/12/19 13:55 01/13/19 19:35 01/14/19 12:50 Objective: Vital Signs Temp Pulse Resp BP Pulse Ox 37.2 C 77 12 108/67 92 01/14/19 11:34 01/14/19 11:34 01/14/19 11:34 01/14/19 11:34 01/14/19 11:34 Laboratory Results 01/14/19 04:10 01/14/19 04:10 01/13/19 01/14/19 01/15/19 05:59 05:59 05:59 Intake Total 3768 2250 Output Total 4300 3925 Balance -532 -1675 PT 21.9 SEC (12.0-15.0) H 01/14/19 04:10 INR 2.02 (0.83-1.16) H 01/14/19 04:10 ICD10 Worksheet Patient Problems: Problems Problem Status Onset DKA (diabetic ketoacidosis) Acute Abscess Acute Chest pain Acute Methicillin resistant Staphylococcus aureus infection Acute Orthostatic hypotension Acute Urinary tract infection Acute
--- NOTE | 2019-01-14 13:05 | SOAPPROG ---
SOAP Progress Note Assessment/Plan: Assessment/Plan: 58 yo woman w APLAS admitted w left leg pain discovered to have occlusion and thrombus involving left common femoral artery 1. Limb ischemia due to acute thrombus - s/p embolectomy w Dr Echevarria continues to be perfusing well today anticoagulated w LMWH and warfarin and now on warfarin alone asked pharmacy to dose her at 6mg and notify hematology for dose adjustment to avoid under dosing If INR drops below 2, think pt needs to be back on LMWH given APLAS aorta CTA w runoff reviewed 2. anemia - s.p 2 units PRBC yesterday large left groin hematoma seems better today 3. APLAS - cont ASA and warfarin INR goal between 2.5 and 3.5 would follow INR daily while here NOACs less effective for APLAS and would NOT recommend pt did not fail warfarin in past - INR was 1.4 at time of previous clot will arrange outpt followup 4. IDDM -DKA resolved 5. Anxiety/depression 6. Pain 01/14/19 13:03 Subjective: No acute events groin pain better denies bleeding Objective: Vital Signs Temp Pulse Resp BP Pulse Ox 37.2 C 77 12 108/67 92 01/14/19 11:34 01/14/19 11:34 01/14/19 11:34 01/14/19 11:34 01/14/19 11:34 Laboratory Results 01/14/19 04:10 01/14/19 04:10 01/13/19 01/14/19 01/15/19 05:59 05:59 05:59 Intake Total 3768 2250 Output Total 4300 3925 Balance -532 -1675 PT 21.9 SEC (12.0-15.0) H 01/14/19 04:10 INR 2.02 (0.83-1.16) H 01/14/19 04:10 Gen - NAD CV - RRR Ext - groin hematoma improved right lower extremity warm, left stump edematous but well perfused ICD10 Worksheet Patient Problems: Problems Problem Status Onset DKA (diabetic ketoacidosis) Acute Abscess Acute Chest pain Acute Methicillin resistant Staphylococcus aureus infection Acute Orthostatic hypotension Acute Urinary tract infection Acute
[2019-01-14] MEDS ORDERED: PROPOFOL/EMULSION 500 MG/50 ML BOTTLE IV ONE (13:13)
[2019-01-14] MEDS: SENNOSIDES/DOCUSATE SODIUM TAB PO SCH ×2 (13:16→21:03)
[2019-01-14] MEDS ORDERED: WARFARIN SODIUM 3 MG TAB PO ONE (16:00)
--- NOTE | 2019-01-14 16:12 | HOSPPROG ---
Hospitalist Progress Note Assessment/Plan: DIAGNOSES/PLANS: -limb ischemia: Hx of APS on Xarelto, presented with Acute R to L cross femoral graft embolus * POD#5, s/p emergent surgical thrombectomy * Continue Coumadin, current INR therapeutic * Should not use a newer oral anticoagulant due to antiphospholipid antibody syndrome -post hemorrhagic anemia * Appear stable at this time will continue to monitor -APS; failed DOAC (was on Xarelto), also had clot on Coumadin however per hematology INR 1.4 at that time -DKA: 2/2 above, now resolved and doing well with good diet and good sugar control -R hip pain: Hip XR negative for acute abnormality on 01/09 -HTN: Restarted home Amlodipine 2.5 mg this AM due to SBP 170's -TRUDY: Resolved * Lisinopril had been held but has been restarted -pyuria: Infection not suspected, no irritative voiding sx, UA negative for LE or Nitrate -purulent sputum * ? Respiratory infection; status post Rocephin azithromycin, now doing well Do moved to med surge today continue close monitoring and current medications, wound care, PT and OT Will determine whether she is able to go home or needs retirement facility at time of discharge Seen by on hospitals rounds as well as multidisciplinary rounds today Reviewed with Dr. Blake SUBJECTIVE: Still some pain in her leg from the bruising, little pain at the incision Otherwise feels well OBJECTIVE Vitals reviewed: Stable without fever Contact Lens Fitter, my review: Sinus Exam: alert oriented skin warm dry color ok resps not labored lungs clear BSs heart regular abd soft nondistended nontender, bowel sounds present limbs left leg still with evidence of large hematoma but does not appear to show any signs of active bleeding, incision looks good, prior BKA stump looks good iv site ok Laboratory data: Hemoglobin stable at 9+ INR 2.0 Sugars in good range Objective: Vital Signs Temp Pulse Resp BP Pulse Ox 36.9 C 80 18 131/75 H 97 01/14/19 15:54 01/14/19 15:54 01/14/19 15:54 01/14/19 15:54 01/14/19 15:54 Microbiology 01/09/19 12:05 Blood Culture - Final Blood 01/09/19 12:00 Blood Culture - Final Blood Laboratory Results 01/14/19 04:10 01/14/19 04:10 01/13/19 01/14/19 01/15/19 06:59 06:59 06:59 Intake Total 3768 2250 Output Total 4305 3925 1150 Balance -532 -1675 -1150 PT 21.9 SEC (12.0-15.0) H 01/14/19 04:10 INR 2.02 (0.83-1.16) H 01/14/19 04:10 - Time Spent With Patient Time Spent with Patient: greater than 35 minutes Time Spent with Patient: Greater than 35 minutes spent on this patients care, greater than 50% of time spent counseling, educating, and coordinating care regarding the above mentioned plan. ICD10 Worksheet Patient Problems: Problems Problem Status Onset DKA (diabetic ketoacidosis) Acute Abscess Acute Chest pain Acute Methicillin resistant Staphylococcus aureus infection Acute Orthostatic hypotension Acute Urinary tract infection Acute
[2019-01-14] MEDS: ATORVASTATIN CALCIUM 20 MG TAB PO SCH (21:02)
[2019-01-14] MEDS: PATCH REMOVAL 1 EA PATCH TD SCH (21:17)
[2019-01-15] MEDS: ACETAMINOPHEN 500 MG TAB PO SCH ×3 (04:13→21:02)
[2019-01-15] MEDS: oxyCODONE IR 5 MG TAB PO PRN ×3 (04:13→21:05)
[2019-01-15 05:51] LABS: INR 2.81 (0.83-1.16); PROTIME(PATIENT) 28.2 SEC (12.0-15.0)
[2019-01-15] MEDS ORDERED: POTASSIUM CL 10 MEQ TAB PO ONE ×2 (08:24→23:41)
[2019-01-15] MEDS: INSULIN LISPRO 100 UNIT/ML SC SCH ×3 (08:25→18:32)
[2019-01-15] MEDS: PREGABALIN 75 MG CAP PO SCH ×3 (09:03→21:02)
[2019-01-15] MEDS: INSULIN GLARGINE 100 UNITS/ML UNIT SC SCH ×2 (09:03→21:03)
[2019-01-15] MEDS: ASPIRIN 81 MG CHEWABLE TAB PO SCH (09:04)
[2019-01-15] MEDS: VENLAFAXINE XR 150 MG CAP PO SCH (09:05)
[2019-01-15] MEDS: SENNOSIDES/DOCUSATE SODIUM TAB PO SCH ×2 (09:05→22:26)
[2019-01-15] MEDS: LISINOPRIL 20 MG TAB PO SCH (09:05)
[2019-01-15] MEDS: LIDOCAINE 4%/MENTHOL 1% PATCH TD SCH (09:06)
[2019-01-15] MEDS: METOPROLOL TARTRATE 25 MG TAB PO SCH ×2 (09:06→21:02)
--- NOTE | 2019-01-15 10:16 | SOAPPROG ---
SOAP Progress Note Assessment/Plan: Assessment/Plan: POD #7 s/p embolectomy. Doing well. INR 2.8, Hgb 9.1. No concerns of active bleeding. Intermittent groin pain controlled with oxycodone. Continue to monitor for increasing hematoma size. Encourage frequent ambulation if able- she is motivated today, working with PT/OT. Hopeful discharge 24-48 hrs. 01/15/19 10:16 Subjective: No new concerns. Moderate pain early am, improved with oxycodone. Motivated to be OOB. Objective: Vital Signs Temp Pulse Resp BP Pulse Ox 36.9 C 74 18 155/83 H 92 01/15/19 08:00 01/15/19 08:00 01/15/19 08:00 01/15/19 08:00 01/15/19 08:00 Microbiology 01/09/19 12:05 Blood Culture - Final Blood 01/09/19 12:00 Blood Culture - Final Blood Laboratory Results 01/14/19 04:10 01/15/19 05:25 01/14/19 01/15/19 01/16/19 05:59 05:59 05:59 Intake Total 2250 400 Output Total 3925 1150 Balance -1675 -750 PT 28.2 SEC (12.0-15.0) H 01/15/19 05:25 INR 2.81 (0.83-1.16) H 01/15/19 05:25 Physical Exam: Gen: A&O x3, appears comfortable in bed, afebrile Extremities: Left BKA stump warm, left groin hematoma soft without increase in size, mild groin tenderness. Incision clean without erythema. Right leg and foot warm, palpable PT/DP, min edema ICD10 Worksheet Patient Problems: Problems Problem Status Onset DKA (diabetic ketoacidosis) Acute Abscess Acute Chest pain Acute Methicillin resistant Staphylococcus aureus infection Acute Orthostatic hypotension Acute Urinary tract infection Acute
--- NOTE | 2019-01-15 10:21 | HOSPPROG ---
Hospitalist Progress Note Assessment/Plan: 58 yo F w APS and dm a.w DKA and limb threatening ischemia 2/2 femoral artery clot limb ischemia: s/p emergent surgical thrombectomy stump/limb looks great warfarin/aspirin inr therapeutic hypotension: resolved APS; failed DOAc per her history, has failed warfarin as well warfarin plus aspirin outpt heme follow up DKA: resolved TRUDY: improving cr at baseline constipation: miralax x 2 today purulent sputum: cxr OK by my read proph: anticoagulated dispo: inpt Subjective: case d/w dr hinton. asking to take shower. inr therapeutic Objective: Vital Signs Temp Pulse Resp BP Pulse Ox 36.9 C 74 18 155/83 H 92 01/15/19 08:00 01/15/19 08:00 01/15/19 08:00 01/15/19 08:00 01/15/19 08:00 Microbiology 01/09/19 12:05 Blood Culture - Final Blood 01/09/19 12:00 Blood Culture - Final Blood Laboratory Results 01/14/19 04:10 01/15/19 05:25 01/14/19 01/15/19 01/16/19 05:59 05:59 05:59 Intake Total 2250 400 Output Total 3925 1150 Balance -1675 -750 PT 28.2 SEC (12.0-15.0) H 01/15/19 05:25 INR 2.81 (0.83-1.16) H 01/15/19 05:25 ICD10 Worksheet Patient Problems: Problems Problem Status Onset DKA (diabetic ketoacidosis) Acute Abscess Acute Chest pain Acute Methicillin resistant Staphylococcus aureus infection Acute Orthostatic hypotension Acute Urinary tract infection Acute
[2019-01-15 10:45] LABS: INR 2.87 (0.83-1.16); PROTIME(PATIENT) 28.6 SEC (12.0-15.0)
--- NOTE | 2019-01-15 11:06 | SOAPPROG ---
SOAP Progress Note Assessment/Plan: Assessment: 1. Antiphospholipid antibody syndrome 2. L femoral artery thrombosis --> BKA 3. R femoral artery thrombosis --> emergent thrombectomy INR 2.8 no bleeding Plan: - continue coumadin at 5 mg daily - target 2.5 - 3.5 - NOACs contraindicated - not effective in APLS, jeffery to prevent arterial thromboses - will need close f/u after discharge to manage INR 25 min spent w/ pt and in coordination of care. 01/15/19 11:04 Subjective: feels well. Objective: Vital Signs Temp Pulse Resp BP Pulse Ox 36.9 C 74 18 155/83 H 92 01/15/19 08:00 01/15/19 08:00 01/15/19 08:00 01/15/19 08:00 01/15/19 08:00 Microbiology 01/09/19 12:05 Blood Culture - Final Blood 01/09/19 12:00 Blood Culture - Final Blood Laboratory Results 01/15/19 05:25 01/14/19 01/15/19 01/16/19 05:59 05:59 05:59 Intake Total 2250 400 Output Total 3925 1150 Balance -1675 -750 PT 28.6 SEC (12.0-15.0) H 01/15/19 10:28 INR 2.87 (0.83-1.16) H 01/15/19 10:28 ICD10 Worksheet Patient Problems: Problems Problem Status Onset DKA (diabetic ketoacidosis) Acute Abscess Acute Chest pain Acute Methicillin resistant Staphylococcus aureus infection Acute Orthostatic hypotension Acute Urinary tract infection Acute
[2019-01-15] MEDS ORDERED: POLYETHYLENE GLYCOL 3350 17 GM PKT PO ONE (12:00)
[2019-01-15] MEDS: POLYETHYLENE GLYCOL 3350 17 GM PKT PO SCH (12:26)
[2019-01-15 13:46] LABS: PLATELET COUNT 327 10^3/uL (150-400)
[2019-01-15] MEDS ORDERED: WARFARIN SODIUM 4 MG TAB PO ONE (16:00)
[2019-01-15] MEDS ORDERED: WARFARIN SODIUM 2.5 MG TAB PO ONE (16:00)
[2019-01-15] MEDS ORDERED: WARFARIN SODIUM 5 MG TAB PO ONE (16:00)
[2019-01-15] MEDS ORDERED: WARFARIN SODIUM 3 MG TAB PO ONE (16:00)
[2019-01-15] MEDS: ATORVASTATIN CALCIUM 20 MG TAB PO SCH (21:02)
[2019-01-15] MEDS: PATCH REMOVAL 1 EA PATCH TD SCH (22:26)
[2019-01-16] MEDS: ACETAMINOPHEN 500 MG TAB PO SCH ×3 (03:53→20:37)
[2019-01-16 05:33] LABS: PLATELET COUNT 331 10^3/uL (150-400)
[2019-01-16 05:42] LABS: INR 2.74 (0.83-1.16); PROTIME(PATIENT) 27.6 SEC (12.0-15.0)
[2019-01-16] MEDS: LEVOTHYROXINE 112 MCG TAB PO SCH (06:07)
[2019-01-16] MEDS: INSULIN GLARGINE 100 UNITS/ML UNIT SC SCH ×2 (08:51→20:38)
[2019-01-16] MEDS: PREGABALIN 75 MG CAP PO SCH ×3 (08:51→21:32)
[2019-01-16] MEDS: POLYETHYLENE GLYCOL 3350 17 GM PKT PO SCH (08:51)
[2019-01-16] MEDS: LISINOPRIL 20 MG TAB PO SCH (08:52)
[2019-01-16] MEDS: SENNOSIDES/DOCUSATE SODIUM TAB PO SCH ×2 (08:52→20:38)
[2019-01-16] MEDS: VENLAFAXINE XR 150 MG CAP PO SCH (08:52)
[2019-01-16] MEDS: LIDOCAINE 4%/MENTHOL 1% PATCH TD SCH (08:52)
[2019-01-16] MEDS: METOPROLOL TARTRATE 25 MG TAB PO SCH ×2 (08:53→20:37)
[2019-01-16] MEDS: ASPIRIN 81 MG CHEWABLE TAB PO SCH (08:53)
[2019-01-16] MEDS: INSULIN LISPRO 100 UNIT/ML SC SCH ×3 (08:59→18:53)
--- NOTE | 2019-01-16 09:23 | SOAPPROG ---
SOAP Progress Note Assessment/Plan: Assessment/Plan: POD #8 s/p embolectomy. Doing well. Hgb 9.2. No concerns of active bleed. Intermittent groin pain- recommend trial tramadol in place of oxycodone. Encourage frequent ambulation and shower today. Hopeful discharge tomorrow morning, per patient. Okay from surgical standpoint. Will need f/u with Dr. Echevarria in 2 weeks. 01/15/19 10:16 01/16/19 09:23 Subjective: Doing well. ambulating in room with walker and prosthetic. anticipates shower today. Grain pain unchanged. Objective: Vital Signs Temp Pulse Resp BP Pulse Ox 36.7 C 90 16 138/86 H 96 01/16/19 08:00 01/16/19 08:00 01/16/19 08:00 01/16/19 08:00 01/16/19 08:00 Laboratory Results 01/16/19 04:52 01/16/19 04:52 01/15/19 01/16/19 01/17/19 05:59 05:59 05:59 Intake Total 400 1250 Output Total 1150 Balance -750 1250 PT 27.6 SEC (12.0-15.0) H 01/16/19 04:52 INR 2.74 (0.83-1.16) H 01/16/19 04:52 Physical Exam: Gen: a&Ox3, appears comfortable in bed, afebrile Ext: left BKa stump warm, appropriate resolving ecchymosis, left groin incision clean without erythema- hematoma soft. Right leg 1+ DP/PT, no embolic lesions ICD10 Worksheet Patient Problems: Problems Problem Status Onset DKA (diabetic ketoacidosis) Acute Abscess Acute Chest pain Acute Methicillin resistant Staphylococcus aureus infection Acute Orthostatic hypotension Acute Urinary tract infection Acute
[2019-01-16] MEDS ORDERED: MAGNESIUM CITRATE 300 ML BOTTLE PO ONE (10:07)
--- NOTE | 2019-01-16 10:07 | HOSPPROG ---
Hospitalist Progress Note Assessment/Plan: 58 yo F w APS and dm a.w DKA and limb threatening ischemia 2/2 femoral artery clot limb ischemia: s/p emergent surgical thrombectomy stump/limb looks great warfarin/aspirin inr therapeutic hypotension: resolved APS; failed DOAc per her history, has failed warfarin as well warfarin plus aspirin outpt heme follow up DKA: resolved TRUDY: improving cr at baseline constipation: mag citrate plus dulcolax suppository purulent sputum: cxr OK by my read proph: anticoagulated dispo: inpt Subjective: constipated. case d/w dr boyle Objective: Vital Signs Temp Pulse Resp BP Pulse Ox 36.7 C 90 16 138/86 H 96 01/16/19 08:00 01/16/19 08:00 01/16/19 08:00 01/16/19 08:00 01/16/19 08:00 Laboratory Results 01/16/19 04:52 01/16/19 04:52 01/15/19 01/16/19 01/17/19 05:59 05:59 05:59 Intake Total 400 1250 Output Total 1150 Balance -750 1250 PT 27.6 SEC (12.0-15.0) H 01/16/19 04:52 INR 2.74 (0.83-1.16) H 01/16/19 04:52 - Physical Exam Constitutional: no apparent distress, appears nourished Eyes: PERRL, anicteric sclera Ears, Nose, Mouth, Throat: moist mucous membranes, hearing normal Cardiovascular: regular rate and rhythym, no murmur, rub, or gallop Respiratory: no respiratory distress, no rales or rhonchi Gastrointestinal: normoactive bowel sounds, soft, non-tender abdomen Genitourinary: No stuart in urethra Skin: warm, normal color Musculoskeletal: full muscle strength, other (stump warm) Neurologic: AAOx3 ICD10 Worksheet Patient Problems: Problems Problem Status Onset DKA (diabetic ketoacidosis) Acute Abscess Acute Chest pain Acute Methicillin resistant Staphylococcus aureus infection Acute Orthostatic hypotension Acute Urinary tract infection Acute
[2019-01-16] MEDS ORDERED: BISACODYL 10 MG SUPP PR ONE (10:08)
--- NOTE | 2019-01-16 11:19 | SOAPPROG ---
SOAP Progress Note Assessment/Plan: Assessment: 1. Antiphospholipid antibody syndrome 2. L femoral artery thrombosis --> BKA 3. R femoral artery thrombosis --> emergent thrombectomy INR 2.7 no bleeding Plan: - continue coumadin at 5 mg daily - target 2.5 - 3.5 - NOACs contraindicated - not effective in APLS, jeffery to prevent arterial thromboses - will need close f/u after discharge to manage INR. f/u with Dr. Schaefer in our office (she last saw him in 2013) Subjective: feels well. Objective: exam unchanged Vital Signs Temp Pulse Resp BP Pulse Ox 36.7 C 90 16 138/86 H 96 01/16/19 08:00 01/16/19 08:00 01/16/19 08:00 01/16/19 08:00 01/16/19 08:00 Laboratory Results 01/16/19 04:52 01/16/19 04:52 01/15/19 01/16/19 01/17/19 05:59 05:59 05:59 Intake Total 400 1250 Output Total 1150 Balance -750 1250 PT 27.6 SEC (12.0-15.0) H 01/16/19 04:52 INR 2.74 (0.83-1.16) H 01/16/19 04:52 ICD10 Worksheet Patient Problems: Problems Problem Status Onset DKA (diabetic ketoacidosis) Acute Abscess Acute Chest pain Acute Methicillin resistant Staphylococcus aureus infection Acute Orthostatic hypotension Acute Urinary tract infection Acute
[2019-01-16] MEDS ORDERED: WARFARIN SODIUM 5 MG TAB PO ONE (16:00)
--- NOTE | 2019-01-16 16:55 | ASMTCMCOM ---
CM Note CM Note Notes: Patient discussed during clinical rounds. Patient likely to discharge tomorrow, Sarah able to accept. CM to follow. D/C Plan: [facility] Date Signed: 01/16/2019 04:54 PM Electronically Signed By:Clarissa Morrow
[2019-01-16] MEDS: ATORVASTATIN CALCIUM 20 MG TAB PO SCH (20:37)
[2019-01-16] MEDS: PATCH REMOVAL 1 EA PATCH TD SCH (20:38)
[2019-01-17] MEDS: ACETAMINOPHEN 500 MG TAB PO SCH (04:37)
[2019-01-17] MEDS: LEVOTHYROXINE 112 MCG TAB PO SCH (04:37)
[2019-01-17 05:03] LABS: INR 3.09 (0.83-1.16); PROTIME(PATIENT) 30.3 SEC (12.0-15.0)
[2019-01-17 08:16] VITALS: BP 151/70
[2019-01-17] MEDS: INSULIN GLARGINE 100 UNITS/ML UNIT SC SCH (09:33)
[2019-01-17] MEDS: INSULIN LISPRO 100 UNIT/ML SC SCH (09:33)
[2019-01-17] MEDS: POLYETHYLENE GLYCOL 3350 17 GM PKT PO SCH (09:35)
[2019-01-17] MEDS: LIDOCAINE 4%/MENTHOL 1% PATCH TD SCH (09:35)
[2019-01-17] MEDS: VENLAFAXINE XR 150 MG CAP PO SCH (09:36)
[2019-01-17] MEDS: SENNOSIDES/DOCUSATE SODIUM TAB PO SCH (09:36)
[2019-01-17] MEDS: LISINOPRIL 20 MG TAB PO SCH (09:36)
[2019-01-17] MEDS: ASPIRIN 81 MG CHEWABLE TAB PO SCH (09:36)
[2019-01-17] MEDS: PREGABALIN 75 MG CAP PO SCH (09:38)
[2019-01-17] MEDS: METOPROLOL TARTRATE 25 MG TAB PO SCH (09:38)
--- NOTE | 2019-01-17 10:07 | GDS ---
[f rep st] DISCHARGE SUMMARY DISCHARGE DIAGNOSES: 1. Diabetic ketoacidosis. 2. Acute limb ischemia secondary to arterial thrombosis. 3. History of cross fem bypass. 4. Antiphospholipid antibody syndrome with previous below knee amputation secondary to arterial ischemia. 5. Cerebrovascular accident in 2006 with residual memory problems. 6. Peripheral vascular disease. 7. Depression. 8. Anxiety. 9. Posttraumatic stress disorder. 10. Thyroiditis. Please see admission history and physical by Dr. Goyo Robertson. The patient presented with DKA of uncertain precipitant. Her left BKA stump was cool and mottled. She was seen urgently by Surgery, who performed arterial duplex which showed no flow in the profunda femoris and was immediately taken urgently to the operating room where she had a large vascular surgery that can be reviewed in Dr. Sherif Echevarria's note. She was critically ill upon leaving the operating room, but on the following day her gap had closed, renal function was largely intact. Since that time she has done well with improvement with normalization of her renal function and blood pressure. She is discharged home. She is cleared by occupational and physical therapy. She has a slightly new insulin regimen. She was seen by Hematology Oncology regarding antiphospholipid antibody syndrome. She had been on Xarelto. She was compliant with it and she was switched over to warfarin plus aspirin. She has tolerated this well without evidence of ongoing blood loss. She did receive 4 units of packed cells while here. Greater than 30 minutes spent on this discharge. /[id number]/MODL MTDD
--- NOTE | 2019-01-17 10:08 | ASMTCMCOM ---
CM Note CM Note Notes: Met with patient who reports she has help to get home, she would like to be referred to meals on Wheels. She will also have HHC through [facility]. Medically cleared for discharge with services as above. CM available should other needs arise. [facility] alerted/ Awaiting final orders. CM available should other needs arise. Pln: Home with HHC Date Signed: 01/17/2019 10:07 AM Electronically Signed By:Lizzeth Dewitt RN
--- NOTE | 2019-01-17 15:02 | SOAPPROG ---
ROBERT Progress Note Assessment/Plan: E&M for APLS * Antiphospholipid antibody syndrome with 1. L femoral artery thrombosis --> BKA and 2. R femoral artery thrombosis --> emergent thrombectomy: Unfortunately , she developed this clot while on an NOAC which is not adequate anticoagulation for her. She reports she had the other clot in her leg when her INR was normal at 2.4. Therefore, I would keep the goal INR 2.5-3.5 with a primarily around 3. I explained to her that if this is ineffective and she has another clot, then she may need to go to long-standing use of low molecular weight heparin. She is to follow-up with Dr. Schaefer. Subjective: She is doing well and ready to go home. She has no acute complaints. Objective: Vital Signs Temp Pulse Resp BP Pulse Ox 36.9 C 78 16 151/70 H 93 01/17/19 08:16 01/17/19 08:16 01/17/19 08:16 01/17/19 08:16 01/17/19 08:16 Laboratory Results 01/16/19 04:52 01/17/19 04:32 01/16/19 01/17/19 01/18/19 05:59 05:59 05:59 Intake Total 1250 900 Output Total 400 Balance 1250 500 PT 30.3 SEC (12.0-15.0) H 01/17/19 04:32 INR 3.09 (0.83-1.16) H 01/17/19 04:32 Laboratory Tests 01/17/19 04:32 INR 3.09 H Physical Exam - Physical Exam General Appearance: no apparent distress ICD10 Worksheet Patient Problems: Problems Problem Status Onset Abscess Acute Chest pain Acute DKA (diabetic ketoacidosis) Acute Methicillin resistant Staphylococcus aureus infection Acute Orthostatic hypotension Acute Urinary tract infection Acute
--- NOTE | 2019-01-17 15:07 | PDIAF ---
- Diagnosis Diagnosis: limb ischemia Code Status: Full Code - Medication Management Discharge Medications: electronically signed and located in the Home Medication List. - Orders Isolation Type: None Diet Texture: Regular Texture Diet, Thin Liquids, Meds Whole w/Liquids - Follow Up Care Current Providers and Referrals: Sherif Echevarria MD [Medical Doctor] - follow up in 2 weeks Patient,NotPresent [Unknown] - As per Instructions
[2019-01-17] MEDS ORDERED: WARFARIN SODIUM 5 MG TAB PO ONE (16:00)
--- NOTE | 2019-01-18 14:15 | PDIAF ---
- Diagnosis Diagnosis: limb ischemia Code Status: Full Code - Medication Management Discharge Medications: electronically signed and located in the Home Medication List. - Orders Services needed: Home Care, Physical Therapy, Occupational Therapy Home Care Face to Face: I certify that this patient was under my care and that I had the required [id number] encounter meeting the encounter requirements on the discharge day. My findings support the fact that the patient is homebound as defined in Home Care Face to Face Continued: CMS Chapter 7 Medicare Benefits Manual 30.1.1 , The condition of the patient is such that there exists a normal inability to leave home and consequently, leaving home would require a considerable and taxing effort. Isolation Type: None Diet Texture: Regular Texture Diet, Thin Liquids, Meds Whole w/Liquids - Follow Up Care Current Providers and Referrals: Sherif Echevarria MD [Medical Doctor] - follow up in 2 weeks Patient,NotPresent [Unknown] - As per Instructions
--- NOTE | 2019-01-18 14:33 | ASMTCMCOM ---
CM Note CM Note Notes: Corrected interagency form attached and sent in allscripts after physician completed at 14:15 pm today. Date Signed: 01/18/2019 02:32 PM Electronically Signed By:Lizzeth Dewitt RN
--- NOTE | 2019-01-18 14:35 | ASDISCHSUM ---
Discharge Information Plan Status:Home with Home Health Medically Cleared to Leave:01/17/2019 Discharge Date:01/17/2019 12:36 PM D/C Disposition:Home Health Service [facility] D/C Disposition:Home, Routine, Self-Care Projected Discharge Date:01/25/2019 11:00 AM Transportation at D/C: Discharge Delay Reason: Follow-Up Date:01/25/2019 11:00 AM Discharge Slot: Final Diagnosis: Placement Information Referral Type:*Home Health Care Services Referral ID:[id number] [facility] Address 1[address] Address 2: City:[place] Selection Factors: State:[place] Patient Contact Information Contact Name:NATHAN Relationship: Address: Home Phone: Work Phone: City: [facility] Phone: State/[place] Code: Email: Financial Information Financial Class:Medicare Primary Plan Desc:MEDICARE INPATIENT Primary Plan Number:[id number] Secondary Plan Desc: Secondary Plan Number: Assessment Information [facility] CM Progress Note CM Note CM Note Notes: Reviewed chart. Pt presented to the Emergency Department with complaints of shortness of breath. History includes IDDM, HTN, Lupus, Farrah's dx, cardiomyopathy, anemia, stroke, nephrectomy, below the knee amputation, depression and former smoker. Pt is single and lives in [place]. Pt admitted for DKA with hyperglycemia for further observation and treatment. Discharge needs remain unclear at this time. CM will continue to follow. Discharge Plan: To be determined Date Signed: 01/08/2019 03:20 PM Electronically Signed By:Jing Hahn RN [facility] CM Progress Note CM Note CM Note Notes: Patient had an emergent embolectomy w Dr Echevarria yesterday. I have ordered PT/OT. Case Mangement will follow. Date Signed: 01/09/2019 02:33 PM Electronically Signed By:Gissel Alonso RN [facility] CM Progress Note CM Note CM Note Notes: Met with pt. She currently has [facility] wool classer Christopher ([phone]). CM left message attempting to arrange services for pt for dc. at this time PT/OT recommending [facility]. CM to follow. Plan: needs coordination of HomeCare through [facility] Date Signed: 01/12/2019 03:29 PM Electronically Signed By:CHIP Beach [facility] ALEN Progress Note CM Note CM Note Notes: CM spoke to wool classer at [facility] who reports that pt has a warehouse distribution specialist come into the home twice a month. Pt reports that she worked with [facility] before. CM made a referral to [facility]. CM to follow. Plan: [facility] Date Signed: 01/13/2019 02:48 PM Electronically Signed By:Bella Bergman [facility] CM Progress Note CM Note CM Note Notes: CM spoke to [facility] liaison who stated that they will accept pt for [facility] for PT/OT. Pt agrees to both services in home but refuses RN. Pt not medically stable for discharge at this time, CM will follow. Plan: [facility] PT/OT Date Signed: 01/14/2019 12:10 PM Electronically Signed By:Bella Bergman [facility] CM Progress Note CM Note CM Note Notes: Patient discussed during clinical rounds. Patient likely to discharge tomorrow, [facility] able to accept. CM to follow. D/C Plan: [facility] Date Signed: 01/16/2019 04:54 PM Electronically Signed By:Clarissa Morrow [facility] CM Progress Note CM Note CM Note Notes: Met with patient who reports she has help to get home, she would like to be referred to meals on Wheels. She will also have HHC through [facility]. Medically cleared for discharge with services as above. CM available should other needs arise. [facility] alerted/ Awaiting final orders. CM available should other needs arise. Pln: Home with HHC Date Signed: 01/17/2019 10:07 AM Electronically Signed By:Lizzeth Dewitt RN [facility] CM Progress Note CM Note CM Note Notes: Corrected interagency form attached and sent in [facility] after physician completed at 14:15 pm today. Date Signed: 01/18/2019 02:32 PM Electronically Signed By:Lizzeth Dewitt RN Intervention Information Intervention Type:*IM-Signed Date of Service:01/17/2019 10:54 AM Patient Type:Inpatient Staff Member:Karlene Weinstein Hours: Discipline: Severity: Comment:
== END 2019-01-17 12:36 | disposition home health service (06) | DRG 252 ==
LOC: EDUNIT# → F2N 14:34 → F1N 01-14 15:44
PROVIDERS: ADMIT Internal Medicine; ATTEND Internal Medicine
PROC: 02HV33Z Insertion of Infusion Device into Superior Vena Cava, Percutaneous Approach (ICD-10-PCS; 2019-01-08)
PROC: 04CN0ZZ Extirpation of Matter from Left Popliteal Artery, Open Approach (ICD-10-PCS; principal; 2019-01-08 15:30)
DX: I74.3 Embolism and thrombosis of arteries of the lower extremities (principal); E10.10 Type 1 diabetes mellitus with ketoacidosis without coma; D68.61 Antiphospholipid syndrome; E86.9 Volume depletion, unspecified; I69.398 Other sequelae of cerebral infarction; I73.9 Peripheral vascular disease, unspecified; F32.9 Major depressive disorder, single episode, unspecified; F41.9 Anxiety disorder, unspecified; F43.10 Post-traumatic stress disorder, unspecified; E06.3 Autoimmune thyroiditis; I10 Essential (primary) hypertension; Z89.512 Acquired absence of left leg below knee; Z79.01 Long term (current) use of anticoagulants; Z79.4 Long term (current) use of insulin
CPT/HCPCS: 82435-PO; 82565-PO; 82947-PO; 82947-QW; 83605-ER; 84132-PO; 84295-PO; 84484-ER; 84520-PO; 85014-ER; 85520-90; 86147-90; 92610-GN; 96374; 97116-GP; 97162-GP; 97166-GO; 97530-GO; 97530-GP; 97535-GO; C1757; J0696; J1170; J1200; J1644; J1650; J1815; J1940; J2001; J2440; J2704; J3010; J3480; P9016; P9041; Q9961; Q9967